=== PATIENT | female | born 1950 | race Caucasian/White ===

== ENCOUNTER → 2021-05-04 11:05 | Outpatient (CLI) | payer MEDICARE, SELFPAY ==
--- NOTE | 2021-05-04 11:06 | DI.RAD.S_ITS ---
PROCEDURE: XR LUMBAR SPINE 2-3V INDICATIONS: Low back pain TECHNIQUE: 3 views of the lumbar spine were acquired. COMPARISON: None. FINDINGS: Bones: Transitional anatomy with 6 lumbar type [id number] vertebral bodies and non-rudimentary S1-S2 disc. For purposes of this dictation the 6 lumbar type [id number]-[id number] vertebral bodies will be designated L1 through S1 with the last non-rudimentary disc designated S1-S2.. There is mild L5-S1 anterolisthesis. There is trace L4-L5 anterolisthesis. No vertebral body compression fractures. No suspicious bony lesions. Mild L2-L3, L3-L4, L4-L5, L5-S1 and S1-S2 degenerative disc changes. Mild L 3-L4, L4-L5, L5-S1 and S1-S2 facet arthropathy. Soft tissues: Overlying bowel gas pattern is normal. No suspicious soft tissue calcifications. IMPRESSION: 1. Transitional anatomy. 2. Multilevel degenerative disc disease. 3. Multilevel facet arthropathy. 4. Grade 1 L5-S1 degenerative spondylolisthesis. 5. No fracture. No acute osseous lesion. If symptoms and/or clinical suspicion for pathology persists, evaluation with MRI should be considered for further assessment. Dictated by: Mariia Sousa MD, PhD on 05/04/2021 at 12:08 Approved by: Mariia Sousa MD, PhD on 05/04/2021 at 12:10
== END ==
PROVIDERS: PCP Student in an Organized Health Care Education/Training Program; Referring Provider Student in an Organized Health Care Education/Training Program; Visit Provider Student in an Organized Health Care Education/Training Program
DX: M54.5 Low back pain (principal); M47.816 Spondylosis without myelopathy or radiculopathy, lumbar region; M47.817 Spondylosis without myelopathy or radiculopathy, lumbosacral region; M51.36 Other intervertebral disc degeneration, lumbar region; M43.17 Spondylolisthesis, lumbosacral region
CPT/HCPCS: 72100

== ENCOUNTER → 2021-05-12 13:58 | Outpatient (CLI) | payer MEDICARE, SELFPAY | PROVIDERS: PCP Student in an Organized Health Care Education/Training Program; Referring Provider Student in an Organized Health Care Education/Training Program; Visit Provider Student in an Organized Health Care Education/Training Program | DX: Z78.0 Asymptomatic menopausal state; Z13.820 Encounter for screening for osteoporosis; R29.890 Loss of height; Z87.891 Personal history of nicotine dependence | CPT/HCPCS: 77080 ==

== ENCOUNTER → 2021-05-26 09:44 | Outpatient (CLI) | payer MEDICARE, SELFPAY ==
[2021-05-26 10:40] LABS: Add Manual Diff / Slide Review NO; Basophils Absolute Auto 0 /uL (0-100); Basophils Percent Auto 0.9 % (0-2); Eosinophils Absolute Auto 200 /uL (0-450); Hematocrit 40.2 % (36-46); Hemoglobin 13.5 g/dL (12.0-16.0); Lymphocytes Absolute Auto 1800 /uL (1100-4500); Lymphocytes Percent Auto 32.6 % (25-40); Mean Corpuscular HGB Conc 33.6 % (30-36); Mean Corpuscular Hemoglobin 31.9 PG (26-34); Mean Corpuscular Volume 94.8 fL (80-100); Monocytes Absolute Auto 400 /uL (0-900); Monocytes Percent Auto 7.9 % (3-14); Neutrophils Absolute Auto 3000 /uL (1500-7000); Neutrophils Percent Auto 54.6 % (50-75); Platelet Count 234 X10^3/uL (150-400); Red Blood Cell Count 4.24 X10^6/uL (4.0-5.2); Red Cell Distribution Width 12.8 % (11.6-14.8); White Blood Cell Count 5.4 X10^3/uL (4.5-11.0)
[2021-05-26 10:53] LABS: Alanine Aminotransferase 69 IU/L (<35); Albumin 4.4 g/dL (3.5-5.0); Albumin Globulin Ratio 1.4 (1.0-2.8); Alkaline Phosphatase 59 U/L (38-126); Aspartate Aminotransferase 47 IU/L (14-36); BUN Creatinine Ratio 24.3 (6-22); Bilirubin Total 0.5 mg/dL (0.2-1.3); Blood Urea Nitrogen 17 mg/dL (7-17); Calcium 9.5 mg/dL (8.4-10.2); Carbon Dioxide 25 mmol/L (22-32); Chloride 107 mmol/L (98-107); Cholesterol 186 mg/dL (140-199); Estimated Glomerular Filt Rate > 60.0 mL/min (>60); Globulin 3.1 g/dL (1.7-4.1); Glucose 93 mg/dL (80-110); HDL Cholesterol 59 mg/dL (40-60); HEMOLYSIS 16 (0-50); LDL Cholesterol Calculated 81 mg/dL (<100); Potassium 4.7 mmol/L (3.4-5.1); Sodium 138 mmol/L (137-145); Total Protein 7.5 g/dL (6.3-8.2); Triglycerides 232 mg/dL (35-150)
== END ==
PROVIDERS: PCP Student in an Organized Health Care Education/Training Program; Referring Provider Student in an Organized Health Care Education/Training Program; Visit Provider Student in an Organized Health Care Education/Training Program
DX: Z13.220 Encounter for screening for lipoid disorders (principal); L71.9 Rosacea, unspecified; Z79.899 Other long term (current) drug therapy; M47.816 Spondylosis without myelopathy or radiculopathy, lumbar region
CPT/HCPCS: 36415; 80053; 80061; 85025

== ENCOUNTER → 2021-06-28 12:33 | Outpatient (CLI) | payer MEDICARE, SELFPAY ==
--- NOTE | 2021-06-28 12:35 | DI.US.S_ITS ---
PROCEDURE: US ABDOMEN LIMITED INDICATIONS: ELEVATED LIVER ENZYMES TECHNIQUE: Real-time focused scanning was performed of the abdomen, with image documentation. COMPARISON: None. FINDINGS: The liver demonstrates normal size. The liver demonstrates generalized moderately increased echogenicity. This decreases ultrasound sensitivity for detection of hepatic masses. No findings of gallstones or sludge are seen. The gallbladder wall is not thickened, measuring 3 mm or less. No specific pericholecystic fluid is seen. The sonographic Sorenson sign is negative. There is no biliary dilatation, the common bile duct measures 6 mm. There is mild prominence of the pancreatic duct, which measures 3.4 mm, with the upper limits of normal being 3 mm. No additional significant pancreatic abnormality is seen on these images. At the inferior pole of the right kidney there is an anechoic cyst that measures 5.1 x 5 x 4 cm. Mild right kidney pelvicaliectasis is seen. IMPRESSION: The liver demonstrates increased echogenicity. This finding is nonspecific, yet it is most commonly attributed to fatty infiltration. Mild prominence of the pancreatic duct. Incidental note is made a simple appearing right renal cyst. Right kidney pelvicaliectasis is also seen. Dictated by: Petey Reyes M.D. on 06/29/2021 at 8:10 Approved by: Petey Reyes M.D. on 06/29/2021 at 8:12
== END ==
PROVIDERS: PCP Student in an Organized Health Care Education/Training Program; Referring Provider Student in an Organized Health Care Education/Training Program; Visit Provider Student in an Organized Health Care Education/Training Program
DX: R74.8 Abnormal levels of other serum enzymes (principal); N28.1 Cyst of kidney, acquired
CPT/HCPCS: 76705

== ENCOUNTER 2021-08-29 12:21 | Inpatient (IN) | payer MEDICARE, SELFPAY ==
[2021-08-29 13:04] VITALS: BP 147/87; PULSE 98; RESP 20; O2SAT 98
[2021-08-29 13:13] LABS: Add Manual Diff / Slide Review NO; Basophils Absolute Auto 0 /uL (0-100); Basophils Percent Auto 0.2 % (0-2); Eosinophils Absolute Auto 100 /uL (0-450); Eosinophils Percent Auto 0.8 % (2-4); Hematocrit 45.1 % (36-46); Hemoglobin 15.5 g/dL (12.0-16.0); Lymphocytes Absolute Auto 1200 /uL (1100-4500); Lymphocytes Percent Auto 12.5 % (25-40); Mean Corpuscular HGB Conc 34.4 % (30-36); Mean Corpuscular Hemoglobin 32.5 PG (26-34); Mean Corpuscular Volume 94.4 fL (80-100); Monocytes Absolute Auto 700 /uL (0-900); Monocytes Percent Auto 6.9 % (3-14); Neutrophils Absolute Auto 7600 /uL (1500-7000); Neutrophils Percent Auto 79.6 % (50-75); Platelet Count 278 X10^3/uL (150-400); Red Blood Cell Count 4.78 X10^6/uL (4.0-5.2); Red Cell Distribution Width 12.5 % (11.6-14.8); White Blood Cell Count 9.5 X10^3/uL (4.5-11.0)
[2021-08-29 13:25] LABS: Alanine Aminotransferase 48 IU/L (<35); Albumin 4.6 g/dL (3.5-5.0); Albumin Globulin Ratio 1.4 (1.0-2.8); Alkaline Phosphatase 66 U/L (38-126); Aspartate Aminotransferase 34 IU/L (14-36); BUN Creatinine Ratio 16.3 (6-22); Blood Urea Nitrogen 15 mg/dL (7-17); Carbon Dioxide 30 mmol/L (22-32); Chloride 98 mmol/L (98-107); Estimated Glomerular Filt Rate > 60.0 mL/min (>60); Globulin 3.3 g/dL (1.7-4.1); Glucose 115 mg/dL (80-110); HEMOLYSIS < 15 (0-50); Lipase 37 U/L (23-300); Potassium 4.4 mmol/L (3.4-5.1); Sodium 137 mmol/L (137-145); Total Protein 7.9 g/dL (6.3-8.2)
--- NOTE | 2021-08-29 13:27 | ED_ITS ---
HPI - General Adult General Chief complaint: Abdominal Pain Stated complaint: INTESTINAL BLOCKAGE Time Seen by Provider: 08/29/21 12:51 Source: patient Mode of arrival: Ambulatory History of Present Illness HPI narrative: Patient is a 71-year-old female. Has had bowel obstructions in the past. She has had a colectomy in the past and does have an ileostomy. She is here with concerns of another bowel blockage. She has had worsening abdominal distention and nausea and pain since Monday of last week. She has minimal with any output from her ostomy. He has had nausea and also vomiting. No fevers. She did take Zofran last evening which improved things somewhat. Related Data Home Medications Medication Instructions Recorded Confirmed diphenhydramine HCl 25 mg tablet 25 mg PO BEDTIME 05/04/21 05/04/21 (Benadryl Allergy) doxycycline hyclate 20 mg tablet 20 mg PO BID 05/04/21 05/04/21 triamcinolone acetonide 0.1 % 1 applic TOPICAL BID 05/04/21 05/04/21 topical cream Previous Rx's Medication Instructions Recorded losartan 50 mg tablet 50 mg PO DAILY #90 tab 07/02/21 gabapentin 600 mg tablet 600 mg PO TID #270 tab 07/30/21 oxycodone-acetaminophen 5 mg-325 1 tab PO 5XD PRN #150 tab 08/25/21 mg tablet (Percocet) Allergies Allergy/AdvReac Type Severity Reaction Status Date / Time cephalexin [From Keflex] Allergy Mild Rash Verified 05/04/21 10:08 Review of Systems Constitutional Constitutional: Denies fever(s) and Denies headache(s) ENT Ears, Nose, Mouth, and Throat: Denies headache(s) Cardiovascular Cardiovascular: Denies chest pain and Denies dyspnea Respiratory Respiratory: Denies dyspnea Gastrointestinal Gastrointestinal: Reports as per HPI and Reports system reviewed and no addit ional complaints, except as documented Genitourinary Genitourinary: Denies dysuria Musculoskeletal Musculoskeletal: Reports system reviewed and no additional complaints, except as documented Integumentary/Breasts Skin/Breast: Reports system reviewed and no additional complaints, except as documented Neurologic Neurologic: Denies headache(s) Hematologic/Lymphatic On Anticoagulants: No Allergic/Immunologic Allergic/Immunologic: Reports system reviewed and no additional complaints, except as documented Patient History Medical History Lynn's esophagus (~2011) Carpal tunnel syndrome (~2002) Chicken pox Colon polyps (~1998) Familial adenomatous polyposis (~1998) Fibroids (~1979) GERD (gastroesophageal reflux disease) (~2011) Measles Mumps Osteoarthritis (~2011) [place] spotted fever (~2019) Rosacea (~2009) Rubella Surgical History (Updated 06/09/21 @ 21:11 by Natasha Merino) Anesthesia History of colectomy (~2015) History of endoscopy (~2017) History of hysterectomy (~1991) Status post small bowel resection (~2019) Family History (Updated 06/09/21 @ 21:20 by Natasha Merino) Father Colon cancer FAP (familial adenomatous polyposis) Mother History of heart disease Mental health problem Brother History of heart disease Grandmother History of heart disease Grandfather Drowned Grandmother Cancer Family/Other FAP (familial adenomatous polyposis) Social History household members: none Smoking Status: Former smoker alcohol intake: current Smoking Status: Former smoker alcohol intake frequency: holidays/special occasions only Substance Use Type: does not use Exam Initial Vital Signs Initial Vital Signs: Vital Signs Pulse Rate 98 H 08/29/21 13:04 Respiratory Rate 20 08/29/21 13:04 Blood Pressure 147/87 H 08/29/21 13:04 Pulse Oximetry 98 08/29/21 13:04 Const General: cooperative, healthy appearing, comfortable and well developed HENMT Head: normal to inspection and normocephalic Resp Effort & Inspection: normal respiratory effort Auscultation: clear to auscultation bilaterally Cardio Rate: regular rate Rhythm: regular rhythm GI Inspection: distended Palpation: soft and tender Other: Ostomy in place right lower quadrant appears well. Skin General: no rashes or lesions noted Neuro General: patient alert, patient awake, patient oriented x3 and moves all extremities Extrem General: capillary refill normal Psych Appearance: grossly normal and well kempt Course Orders Ordered: ED Orders 08/29/21 12:39 EKG-12 Lead Stat 08/29/21 12:45 Complete Blood Count AUTO DIFF Stat Comprehensive Metabolic Panel Stat Lactate (Lactic Acid) Stat Lipase Stat 08/29/21 13:31 CT abdomen pelvis w con Stat 08/29/21 14:51 COVID19 - ADMIT ([employer] DIRECTOR swab/PCR) Stat 08/29/21 15:32 Consult to General Surgery Urgent Sodium Chloride (Normal Saline 0.9%) 1,000 mls @ 150 mls/hr IV CONT BLADE Last Admin: 08/29/21 17:24 Dose: 150 mls/hr Documented by: Infusion: 08/29/21 17:24 Dose: 150 mls/hr Documented by: Admin: 08/29/21 14:00 Dose: 150 mls/hr Documented by: SALUD Morphine Sulfate (Morphine 2 Mg/Ml Inj) 4 mg IV Q4HR PRN PRN Reason: Pain, Mild (1-3) Ondansetron HCl (Ondansetron 4 Mg/2 Ml Inj) 4 mg IV Q4HR PRN PRN Reason: Nausea And Vomiting Discontinued Medications Morphine Sulfate (Morphine 4 Mg/Ml Inj) 4 mg IV NOW ONE Stop: 08/29/21 13:31 Last Admin: 08/29/21 13:59 Dose: 4 mg Documented by: SALUD Ondansetron HCl (Ondansetron 4 Mg/2 Ml Inj) 4 mg IV NOW ONE Stop: 08/29/21 13:31 Last Admin: 08/29/21 13:59 Dose: 4 mg Documented by: SALUD Vital Signs Vital signs: Vital Signs - 8 hr 08/29/21 13:04 Pulse Rate 98 H Respiratory Rate 20 Blood Pressure 147/87 H Pulse Oximetry 98 Medical Decision Making Lab Data Lab results reviewed: Yes I reviewed the patient's lab results. Result diagrams: 08/29/21 12:45 08/29/21 12:45 Labs: Lab Results 08/29/21 08/29/21 08/29/21 Range/Units 12:45 12:45 12:45 WBC 9.5 (4.5-11.0) X10^3/uL RBC 4.78 (4.0-5.2) X10^6/uL Hgb 15.5 (12.0-16.0) g/dL Hct 45.1 (36-46) % MCV 94.4 (80-100) fL MCH 32.5 (26-34) PG MCHC 34.4 (30-36) % RDW 12.5 (11.6-14.8) % Plt Count 278 (150-400) X10^3/uL Neut % (Auto) 79.6 H (50-75) % Lymph % (Auto) 12.5 L (25-40) % [place] % (Auto) 6.9 (3-14) % Eos % (Auto) 0.8 L (2-4) % Baso % (Auto) 0.2 (0-2) % Neut # (Auto) 7600 H (4599-6057) /uL Lymph # (Auto) 1200 (9215-5984) /uL [place] # (Auto) 700 (0-900) /uL Eos # (Auto) 100 (0-450) /uL Baso # (Auto) 0 (0-100) /uL Sodium 137 (137-145) mmol/L Potassium 4.4 (3.4-5.1) mmol/L Chloride 98 (98-107) mmol/L Carbon Dioxide 30 (22-32) mmol/L BUN 15 (7-17) mg/dL Creatinine 0.92 (0.52-1.04) mg/dL Estimated GFR > 60.0 (>60) mL/min BUN/Creatinine Ratio 16.3 (6-22) Glucose 115 H (80-110) mg/dL Lactate 1.0 (0.7-2.1) mmol/L Calcium 10.0 (8.4-10.2) mg/dL Total Bilirubin 1.0 (0.2-1.3) mg/dL AST 34 (14-36) IU/L ALT 48 H (<35) IU/L Alkaline Phosphatase 66 (38-126) U/L Total Protein 7.9 (6.3-8.2) g/dL Albumin 4.6 (3.5-5.0) g/dL Globulin 3.3 (1.7-4.1) g/dL Albumin/Globulin Ratio 1.4 (1.0-2.8) Lipase 37 (23-300) U/L SARS-CoV-2 (PCR) (Negative) 08/29/21 Range/Units 14:51 WBC (4.5-11.0) X10^3/uL RBC (4.0-5.2) X10^6/uL Hgb (12.0-16.0) g/dL Hct (36-46) % MCV (80-100) fL MCH (26-34) PG MCHC (30-36) % RDW (11.6-14.8) % Plt Count (150-400) X10^3/uL Neut % (Auto) (50-75) % Lymph % (Auto) (25-40) % [place] % (Auto) (3-14) % Eos % (Auto) (2-4) % Baso % (Auto) (0-2) % Neut # (Auto) (2865-7149) /uL Lymph # (Auto) (2358-7718) /uL [place] # (Auto) (0-900) /uL Eos # (Auto) (0-450) /uL Baso # (Auto) (0-100) /uL Sodium (137-145) mmol/L Potassium (3.4-5.1) mmol/L Chloride (98-107) mmol/L Carbon Dioxide (22-32) mmol/L BUN (7-17) mg/dL Creatinine (0.52-1.04) mg/dL Estimated GFR (>60) mL/min BUN/Creatinine Ratio (6-22) Glucose (80-110) mg/dL Lactate (0.7-2.1) mmol/L Calcium (8.4-10.2) mg/dL Total Bilirubin (0.2-1.3) mg/dL AST (14-36) IU/L ALT (<35) IU/L Alkaline Phosphatase (38-126) U/L Total Protein (6.3-8.2) g/dL Albumin (3.5-5.0) g/dL Globulin (1.7-4.1) g/dL Albumin/Globulin Ratio (1.0-2.8) Lipase (23-300) U/L SARS-CoV-2 (PCR) Negative (Negative) Imaging Data CT scan - abdomen/pelvis: Radiologist's Impression: [address] [address] [address] Scan Report Signed Patient: Hue Daigle MR#: [id number] : 1950 Acct:[id number] Age/Sex: 71 / F Date of Service: 08/29/21 Loc: ED Accession Number: [id number] ?? Procedure: CT abdomen pelvis w con Ordering Provider: Ruben Boggs D.O. PROCEDURE:? CT ABDOMEN PELVIS W CON ? INDICATIONS:? Abdominal pain, history of obstructions, has ileostomy ? TECHNIQUE:? After the administration of IV contrast, axial sections were acquired from the lung bases to the pubic symphysis.? Coronal and sagittal reformats were performed.? For radiation dose reduction, the following was used:? automated exposure control, adjustment of mA and/or kV according to patient size. ? COMPARISON:? [facility], ABDOMEN LIMITED, 06/28/2021, 12:47. ? FINDINGS:? Image quality:? Excellent.? ? Lung bases:? Unremarkable.? ? Heart:? No significant findings. ? ? ABDOMEN: Liver: Diffuse fatty liver infiltration is noted.? Gallbladder:? Unremarkable.? ? Biliary ducts:? Unremarkable.? ? Pancreas:? Unremarkable.? ? Spleen:? Unremarkable.? ? Adrenal Glands:? Unremarkable.? ? Kidneys and Ureters:? At the inferior pole of the right kidney, there is a simple appearing 5 cm cyst seen.? Kidneys demonstrate normal size enhance symmetrically.? There is no hydronephrosis. ? Stomach and Bowel:? Within the right lower quadrant ileostomy, there is a herniated loop of bowel.? Forming stool can be seen within this herniated loop of bowel.? The more proximal small bowel loops are dilated, measuring up to 3.7 cm. This patient is status post colectomy.? Within the region of the rectal stump, there is a small amount of pelvic fluid seen, as on series 2, image 72. No rim enhancement is seen to suggest abscess formation.? No free air is seen. ? Ventral Wall: ? There is a right lower quadrant ileostomy, with a herniated loop of bowel seen.? There is a dilated of bowel going into the hernia a highly narrowed loop seen at the abdominal wall orifice, as on series 2, image 71. Abdominal Nodes:? No retroperitoneal or mesenteric adenopathy by size criteria.? Vessels:? Aorta and inferior vena cava are normal in size.? ? PELVIS: Pelvic Organs:? Unremarkable.? ? Bladder:? Unremarkable.? ? Pelvic Nodes: No enlarged lymph nodes.? Miscellaneous:? There is a small fat containing right inguinal hernia seen, as on series 2, image 84. ? Bones:? Lower lumbar spine degenerative changes are seen, with milder degenerative changes seen elsewhere. ? ? IMPRESSION:? ? There is a small-bowel obstruction seen, with a site of obstruction at a herniated loop of bowel within the right lower quadrant ileostomy. ? Status post colectomy, with a small amount of fluid seen within the regional rectal stump.? No findings of abscess are seen. ? Incidental note is made of: Fatty liver infiltration 5 cm simple appearing cyst at the inferior pole of the right kidney Small fat containing right inguinal hernia ? Dictated by: Petey Reyes M.D. on 08/29/2021 at 13:03 ? ? Approved by: Petey Reyes M.D. on 08/29/2021 at 13:09?? ECG Data Attestation: I personally reviewed and interpreted this ECG as follows: Prior ECG tracings: not available for review Interpretation: Sinus rhythm Ventricular rate 88 Normal axis Normal QRS Normal QTC No ST T wave changes MDM Narrative Medical decision making narrative: Patient's nausea and pain improved with medications. She has not vomited since being here in the emergency department. CT scan of the abdomen shows what appears to be small bowel obstruction. I did discuss this with her and she expressed understanding. I also discussed the case with Dr. Reyes who is on- call for General surgery who will admit for further evaluation and treatment. Patient understands need for admission to hospital. Discharge Plan Departure Patient Disposition: Admitted As Inpatient Clinical Impression: Small bowel obstruction Admit Date/Time: 08/29/21 16:23 Admit Provider: Jg Reyes
--- NOTE | 2021-08-29 13:31 | DI.CT.S_ITS ---
PROCEDURE: CT ABDOMEN PELVIS W CON INDICATIONS: Abdominal pain, history of obstructions, has ileostomy TECHNIQUE: After the administration of IV contrast, axial sections were acquired from the lung bases to the pubic symphysis. Coronal and sagittal reformats were performed. For radiation dose reduction, the following was used: automated exposure control, adjustment of mA and/or kV according to patient size. COMPARISON: [facility], , US ABDOMEN LIMITED, 06/28/2021, 12:47. FINDINGS: Image quality: Excellent. Lung bases: Unremarkable. Heart: No significant findings. ABDOMEN: Liver: Diffuse fatty liver infiltration is noted. Gallbladder: Unremarkable. Biliary ducts: Unremarkable. Pancreas: Unremarkable. Spleen: Unremarkable. Adrenal Glands: Unremarkable. Kidneys and Ureters: At the inferior pole of the right kidney, there is a simple appearing 5 cm cyst seen. Kidneys demonstrate normal size enhance symmetrically. There is no hydronephrosis. Stomach and Bowel: Within the right lower quadrant ileostomy, there is a herniated loop of bowel. Forming stool can be seen within this herniated loop of bowel. The more proximal small bowel loops are dilated, measuring up to 3.7 cm. This patient is status post colectomy. Within the region of the rectal stump, there is a small amount of pelvic fluid seen, as on series 2, image 72. No rim enhancement is seen to suggest abscess formation. No free air is seen. Ventral Wall: There is a right lower quadrant ileostomy, with a herniated loop of bowel seen. There is a dilated of bowel going into the hernia a highly narrowed loop seen at the abdominal wall orifice, as on series 2, image 71. Abdominal Nodes: No retroperitoneal or mesenteric adenopathy by size criteria. Vessels: Aorta and inferior vena cava are normal in size. PELVIS: Pelvic Organs: Unremarkable. Bladder: Unremarkable. Pelvic Nodes: No enlarged lymph nodes. Miscellaneous: There is a small fat containing right inguinal hernia seen, as on series 2, image 84. Bones: Lower lumbar spine degenerative changes are seen, with milder degenerative changes seen elsewhere. IMPRESSION: There is a small-bowel obstruction seen, with a site of obstruction at a herniated loop of bowel within the right lower quadrant ileostomy. Status post colectomy, with a small amount of fluid seen within the regional rectal stump. No findings of abscess are seen. Incidental note is made of: Fatty liver infiltration 5 cm simple appearing cyst at the inferior pole of the right kidney Small fat containing right inguinal hernia Dictated by: Petey Reyes M.D. on 08/29/2021 at 13:03 Approved by: Petey Reyes M.D. on 08/29/2021 at 13:09
[2021-08-29] MEDS: MORPHINE 4 MG/ML INJ IV (13:59)
[2021-08-29] MEDS: ONDANSETRON 4 MG/2 ML INJ IV ×3 (13:59→22:26)
[2021-08-29] MEDS: SODIUM CHLORIDE 0.9% 1,000 ML 150 ML IV ×2 (14:00→17:24)
[2021-08-29 15:49] LABS: COVID19 - ADMIT (NP swab/PCR) Negative (Negative)
[2021-08-29 16:38] VITALS: BMI 27.9
[2021-08-29 16:55] LABS: Amorphous Sediment Urine 1+; Bacteria Urine Occasional (0-1); Culture Indicated Urine Specimen Cultured; RBC Urine None Seen (0-5/HPF); Squamous Epithelial Cell Urine 0-1 /HPF (0-5/HPF); WBC Urine 10-30/HPF (0-5/HPF)
[2021-08-29 17:09] VITALS: BP 153/79; PULSE 84; RESP 16; TEMP 36.7; O2SAT 97
[2021-08-29] MEDS: MORPHINE 2 MG/ML INJ 4 MG IV ×2 (18:08→22:21)
[2021-08-29 20:05] VITALS: BP 117/66; PULSE 72; RESP 16; TEMP 37.7; O2SAT 95
--- NOTE | 2021-08-30 | DI.RAD.S_ITS ---
PROCEDURE: XR GASTROGRAFIN CHALLENGE COMPARISON: [facility], CR, XR CHEST 1V, 08/30/2021, 16:39. [facility], CT, CT ABDOMEN PELVIS W CON, 08/29/2021, 13:46. INDICATIONS: Small bowel obstruction FINDINGS: Catheter or overlying the right lower abdomen. Enteric tube projecting over the stomach. Dilated loops of small bowel. No acute osseous abnormality. IMPRESSION: Catheters project in the expected locations. Dilated loops of small bowel. Suspect persistent small bowel obstruction. Dictated by: Valentin Lindsey M.D. on 08/30/2021 at 22:20 Approved by: Valentin Lindsey M.D. on 08/30/2021 at 22:23
[2021-08-30] MEDS: SODIUM CHLORIDE 0.9% 1,000 ML 150 ML IV ×3 (00:14→13:27)
[2021-08-30] MEDS: MORPHINE 2 MG/ML INJ 4 MG IV ×4 (02:24→16:14)
[2021-08-30] MEDS: ONDANSETRON 4 MG/2 ML INJ IV ×5 (02:24→21:48)
[2021-08-30 04:36] VITALS: BP 118/80; PULSE 92; RESP 16; TEMP 37.3; O2SAT 98
[2021-08-30 08:30] VITALS: BP 114/63; PULSE 75; RESP 14; TEMP 36.4; O2SAT 93
[2021-08-30] MEDS: SODIUM CHLORIDE 0.9% FLUSH 10 ML IV (12:31)
[2021-08-30 12:39] VITALS: BP 131/68; PULSE 79; RESP 16; TEMP 37.4; O2SAT 93
--- NOTE | 2021-08-30 15:42 | PC.NURSE ---
Addendum entered by Baltazar Loja R.N. 08/30/21 19:47: 14F NG tube was placed to left nare at 55cm. Gastrograffin was administered by FROYLAN ricketts. Later patient c/o of increased severe abdominal pain, sitting at bedside moaning in pain. Dr. Reyes notified and ordered NG to be placed to intermittent suction (done) and prn IV dilaudid for pain. Patient resting at this time with call light within reach. Original Note: DI came up to administer gastrograffin as ordered for test. Patient states she was really trying to avoid having an NG tube and would like to attempt to take contrast orally. DI tech states for test itself it does not matter. Dr. Reyes notified and gives ok for patient to attempt orally. Patient quickly became nauseous with abdominal pain, and agreed to NG tube at this time.
[2021-08-30 16:00] VITALS: BP 144/73; PULSE 91; RESP 14; TEMP 36.6; O2SAT 94
--- NOTE | 2021-08-30 16:31 | P.HP_ITS ---
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 She reports she did have a peristomal hernia repair for an emergent bowel obstruction in 2019 in [place]. She now presents with 3 days of nausea, vomiting, abdominal pain and decreased ileostomy output which she states feels like her prior obstruction. The CT shows a likely obstruction at the level of the ileostomy. Although the radiology report implies that a loop of bowel is herniated alongside the ileostomy, it may in fact be a redundancy in the ileum coming through the fascia and causing compression of the ileum at the level of the fascia. Patient History Medical History Lynn's esophagus (~2011) Carpal tunnel syndrome (~2002) Chicken pox Colon polyps (~1998) Familial adenomatous polyposis (~1998) Fibroids (~1979) GERD (gastroesophageal reflux disease) (~2011) Measles Mumps Osteoarthritis (~2011) [place] spotted fever (~2019) Rosacea (~2009) Rubella Surgical History (Updated 06/09/21 @ 21:11 by Natasha Merino) Anesthesia History of colectomy (~2015) History of endoscopy (~2017) History of hysterectomy (~1991) Status post small bowel resection (~2019) Family & Social History Family History (Updated 06/09/21 @ 21:20 by Natasha Merino) Father Colon cancer FAP (familial adenomatous polyposis) Mother History of heart disease Mental health problem Brother History of heart disease Grandmother History of heart disease Grandfather Drowned Grandmother Cancer Family/Other FAP (familial adenomatous polyposis) Social History: household members none Prior Living Arrangements House Safety & Behavioral: Feels Safe in Current Yes Environment Been Physically Hurt or No Threatened By a Person Suicidal Ideation Description None Suicide Plan Description No Plan Tobacco & Substance use: Smoking Status Former smoker alcohol intake current alcohol intake frequency holiday/special occasion Substance Use Type does not use Meds Home Medications and Allergies Home Medications Medication Instructions Recorded Confirmed Type diphenhydramine HCl 25 mg tablet 25 mg PO BEDTIME 05/04/21 08/29/21 History (Benadryl Allergy) losartan 50 mg tablet 50 mg PO DAILY #90 tab 07/02/21 08/29/21 Rx gabapentin 600 mg tablet 600 mg PO TID #270 tab 07/30/21 08/29/21 Rx oxycodone-acetaminophen 5 mg-325 1 tab PO 5XD PRN #150 tab 08/25/21 08/29/21 Rx mg tablet (Percocet) Allergies Allergy/AdvReac Type Severity Reaction Status Date / Time cephalexin [From Keflex] Allergy Mild Rash Verified 05/04/21 10:08 Exam Vital Signs (past 8 hours): - 08/30/21 12:39 Temperature 99.3 F Pulse Rate 79 Respiratory Rate 16 Blood Pressure 131/68 Pulse Oximetry 93 Oxygen Delivery Method Room Air Oxygen Flow Rate 0 Narrative Exam Narrative: Nontoxic Abdomen is soft, distended There is a laparotomy scar from just above the umbilicus to the pubis. There is a right lower quadrant ileostomy the mucosa of which is red and well perfused. There is scant fluid in the ileostomy bag. Objective Labs Result Diagrams: 08/29/21 12:45 08/29/21 12:45 Labs: Laboratory Results - last 24 hr 08/29/21 16:45 Urine RBC None seen Urine WBC 10-30/hpf H Ur Squamous Epith Cells 0-1 /hpf Amorphous Sediment 1+ Urine Bacteria Occasional (0-1) Ur Culture Indicated? Specimen cultured Assessment & Plan Assessment and plan (1) Small bowel obstruction: Status: Acute Plan I did attempt to digitalize the ileostomy be on the fascia and I inserted a red rubber catheter. Despite this maneuver there is minimal output. I will initiate a Gastrografin challenge. If she does not start putting out significant stool through the ileostomy by morning we will schedule her for an exploration of the ileostomy. Hopefully, the ileostomy could be revised at the level of the fascia without entering the abdominal cavity. Time Spent With Patient Critical Care time: I spent a total of [] minutes of critical care time on this patient's care today; this time is exclusive of procedural time. Quality VTE Deep Vein Thrombosis/Pulmonary Embolism Present on Admission: No
--- NOTE | 2021-08-30 16:38 | DI.RAD.S_ITS ---
PROCEDURE: XR CHEST 1V INDICATIONS: NG tube placement TECHNIQUE: One view of the chest was acquired. COMPARISON: None. FINDINGS: Surgical changes and devices: Enteric tube with the tip in the stomach. Lungs and pleura: Bibasilar streaky opacity consistent with atelectasis. No pleural effusions or pneumothorax. Mediastinum: Mediastinal contours appear normal. Heart size is normal. Bones and chest wall: No suspicious bony lesions. Prominent loops of small bowel. IMPRESSION: Enteric tube coursing into the stomach. Dilated loops of small bowel. Dictated by: Valentin Lindsey M.D. on 08/30/2021 at 16:50 Approved by: Valentin Lindsey M.D. on 08/30/2021 at 16:52
[2021-08-30] MEDS: HYDROMORPHONE 0.5 MG INJ IV ×2 (18:58→22:05)
[2021-08-30 19:57] VITALS: BP 150/64; PULSE 89; RESP 16; TEMP 37.2; O2SAT 94
[2021-08-31] VITALS (20 sets, daily range): BP systolic 122–168; BP diastolic 53–79; PULSE 88–149; RESP 12–102; TEMP 36.1–37.7; O2SAT 91–100; BMI 27.9
[2021-08-31] MEDS: HYDROMORPHONE 0.5 MG INJ IV ×5 (00:40→08:40)
[2021-08-31] MEDS: ONDANSETRON 4 MG/2 ML INJ IV ×3 (01:18→08:40)
--- NOTE | 2021-08-31 06:53 | P.PN_ITS ---
Subjective Subjective Date Patient Seen: 08/31/21 Time Patient Seen: 06:54 Interval history: Hue had significant abdominal pain after the gastrograffin challenge last night. Once she was connected to suction she improved but she is still uncomfortable. Nothing significant out from the ileostomy. Exam Vital Signs (past 8 hours): - 08/31/21 06:01 Temperature 99.2 F Pulse Rate 93 H Respiratory Rate 16 Blood Pressure 148/64 H Pulse Oximetry 93 Oxygen Delivery Method Room Air Oxygen Flow Rate 0 Narrative Exam Narrative: Tender to palpation diffusely across abdomen Objective Labs Result Diagrams: 08/29/21 12:45 08/29/21 12:45 [facility] Medical History Lynn's esophagus (~2011) Carpal tunnel syndrome (~2002) Chicken pox Colon polyps (~1998) Familial adenomatous polyposis (~1998) Fibroids (~1979) GERD (gastroesophageal reflux disease) (~2011) Measles Mumps Osteoarthritis (~2011) [place] spotted fever (~2019) Rosacea (~2009) Rubella Surgical History (Updated 06/09/21 @ 21:11 by Natasha Merino) Anesthesia History of colectomy (~2015) History of endoscopy (~2017) History of hysterectomy (~1991) Status post small bowel resection (~2019) Family History (Updated 06/09/21 @ 21:20 by Natasha Merino) Father Colon cancer FAP (familial adenomatous polyposis) Mother History of heart disease Mental health problem Brother History of heart disease Grandmother History of heart disease Grandfather Drowned Grandmother Cancer Family/Other FAP (familial adenomatous polyposis) Social History household members: none Smoking Status: Former smoker alcohol intake: current Assessment & Plan Assessment and plan (1) Small bowel obstruction: Status: Acute Plan Since no progression will proceed with ileostomy revision, possible exploratory laparotomy today. Time Spent With Patient Critical Care time: I spent a total of [] minutes of critical care time on this patient's care today; this time is exclusive of procedural time. Quality VTE Deep Vein Thrombosis/Pulmonary Embolism Present on Admission: No
--- NOTE | 2021-08-31 09:32 | PC.NURSE ---
Patient picked up for surgery. Her earrings were placed in her black bag per her request and left in room.
[2021-08-31] MEDS: LACTATED RINGERS 1,000 ML 42 ML IV ×2 (10:09→12:35)
--- NOTE | 2021-08-31 10:54 | SUR.OPER ---
Supine on padded OR bed, head on pillow, arms secured on padded arm boards at <90 degrees abduction, legs uncrossed, safety belt at thigh, tape over blanket over lower legs.
[2021-08-31] MEDS: HYDROMORPHONE 2 MG INJ 0.5 MG IV (11:26)
--- NOTE | 2021-08-31 11:52 | SUR.HOLD ---
Late entry: Pt brought to OPD, NGT connected to LIS, light brown liquid out. IV to R forearm started. Pt c/o pain, verified with Dr. Bernardo carcamo to give. Pt medicated, spoke with Dr. Chang then pt transported to OR in stable condition
[2021-08-31] MEDS: PIPERACILLIN/TAZO 3.375 GM in SODIUM CHLORIDE 0.9% 100 ML 25 ML IV (12:03)
[2021-08-31] MEDS: LIDOCAINE 1% W/EPI 20 ML INJ (12:15)
--- NOTE | 2021-08-31 14:54 | PM.OP.1 ---
Operative Date/Time/Diagnoses Date of procedure: 08/31/21 Time of procedure: 14:54 Pre-op diagnosis: Small-bowel obstruction Post-op diagnosis: same Procedure & Clinicians Procedure: Revision of end ileostomy Same procedure as scheduled: Yes Indications: Small-bowel obstruction at the ileostomy Surgeon: Jg Reyes Click Yes if Unassisted: Yes Anesthesia Type: General Operative Notes Estimated Blood Loss (mL): 20 Procedure in detail: The patient received Zosyn. The patient was brought to the operating room, was placed on the table in the supine position and general endotracheal anesthesia was induced. A single 2-0 silk suture was used to close the ileostomy. The abdomen was prepped with Betadine. The field was draped in the normal fashion. A time-out was performed. We took down the mucocutaneous junction with cautery and dissected along the plane between the serosa and the subcutaneous adipose tissue. There was a tangled mass of bowel in the subcutaneous space. As we dissected along the medial side of the mass of bowel at one point we thought we had entered into the bowel but in fact we were looking into the peritoneal cavity. There were actually no adhesions visible in the peritoneal cavity. There was a thick peritoneal sac going through the fascial defect that we took down with LigaSure. Because there was some leakage of succus we stapled off the distal end of the small bowel with the linear DALILA cutting stapler. Once terminal ileum was well mobilized and straightened we amputated the distal 5 cm of bowel using cautery. The bowel wall here was rather thickened and edematous but very much viable. We then matured the new ileostomy in a Ciara fashion. A new appliance was placed and the patient was awakened and brought to recovery room. Post-operative Condition: stable Disposition: PACU
[2021-08-31] MEDS: HYDROMORPHONE 2 MG INJ IV ×4 (15:21→15:41)
--- NOTE | 2021-08-31 16:48 | PC.NURSE ---
Addendum entered by Baltazar Loja R.N. 08/31/21 17:13: Dr Reyes up to see patient and discuss surgery, at bedside at this time, states he will clarify orders. Original Note: Patient received back from PACU, settled in room, NG remains intact in left nare and connected to low intermittent wall suction. Patient denies pain and nausea. PACU orders are active, no new transfer orders noted, per [employer]IST no transfer orders were entered. Patient resting in bed with call light within reach.
[2021-08-31] MEDS: LACTATED RINGERS 1,000 ML 75 ML IV (18:50)
[2021-08-31] MEDS: HYDROMORPHONE 1 MG INJ 0.5 MG IV (20:27)
--- NOTE | 2021-09-01 00:18 | PC.ADMIT ---
[email or web address] [facility] Admission Note: The patient,Hue Daigle,71 y/o, was given written information regarding hospital policies, unit procedures and contact persons. Patient's smoking status: Former smoker. Vital Signs - 8 hr 08/31/21 16:20 08/31/21 16:50 08/31/21 17:20 Temperature 98.4 F 97.9 F 97.9 F Pulse Rate 93 H 88 101 H Respiratory Rate 16 16 16 Blood Pressure 122/62 137/59 L 142/67 H Pulse Oximetry 93 94 94 08/31/21 19:56 Temperature 97.7 F Pulse Rate 89 Respiratory Rate 16 Blood Pressure 133/56 L Pulse Oximetry 92 [id number]
[2021-09-01] MEDS: HYDROMORPHONE 0.5 MG INJ IV ×11 (00:19→22:18)
[2021-09-01 04:00] VITALS: BP 152/64; PULSE 101; RESP 18; TEMP 36.3; O2SAT 92
--- NOTE | 2021-09-01 04:10 | DI.CT.S_ITS ---
PROCEDURE: CT ABDOMEN PELVIS W CON INDICATIONS: abdominal pain TECHNIQUE: After the administration of oral and intravenous contrast, axial sections were acquired from the lung bases to the pubic symphysis. Coronal and sagittal reformats were performed. For radiation dose reduction, the following was used: automated exposure control, adjustment of mA and/or kV according to patient size. COMPARISON:[facility], CT, CT ABDOMEN PELVIS W CON, 08/29/2021, 13:46. FINDINGS: ABDOMEN: Lung bases: Small right greater than left pleural effusion with adjacent atelectasis. There is also bibasilar consolidation. Heart: No pericardial effusion. Normal in size. Liver: Hepatic steatosis. Gallbladder: Mild vicarious secretion of contrast. Otherwise unremarkable Bile ducts: Normal. Pancreas: Normal. Spleen: Normal. Adrenals: Normal. Kidneys and Ureters: Rotated appearance of the right kidney incidentally noted. Simple appearing right renal cyst measuring 7 cm. No hydronephrosis. Ureters appear decompressed. Stomach and duodenum: Enteric tube is present with the tip in the stomach. Fluid-filled duodenum. Bowel: Numerous dilated small bowel loops with scattered air-fluid levels. Status post colectomy. Right-sided ostomy is noted with oral contrast material seen in the exiting bowel loops and ostomy bag. There is narrowed appearance at the ostomy on image 80/2. Other: No free fluid or air. Abdominal nodes: Normal. Aorta and IVC: Normal in size. Ventral wall: There is redemonstrated lincoln-ostomy hernia containing bowel loops, grossly unchanged since 08/29/21 PELVIS: Bladder and reproductive: Decompressed and a Melara catheter is present. Inguinal region: Small right fat containing inguinal hernia. Pelvic nodes: Normal. Bones: No suspicious bony lesions. No vertebral body compression fractures. Diffuse spondylytic changes and facet disease. IMPRESSION: Numerous dilated small bowel loops, with redemonstrated periosteal hernia containing bowel loops. There is narrowed appearance at the ostomy site raising possibility of transition point, however there is oral contrast material seen within the exiting bowel loops and ostomy bag so this could represent adynamic ileus. Recommend clinical correlation. Small bilateral pleural effusions with bibasilar consolidation. Additional chronic and incidental findings as above. Findings concordant with the preliminary study interpretation provided at the time of the exam. Dictated by: Grey Julien M.D. on 09/01/2021 at 8:32 Approved by: Grey Julien M.D. on 09/01/2021 at 8:39
[2021-09-01] MEDS: HYDROMORPHONE 1 MG INJ IV (04:31)
--- NOTE | 2021-09-01 07:22 | PM.PN.1 ---
Subjective Subjective Date Patient Seen: 09/01/21 Time Patient Seen: 07:23 Interval history: She is frustrated that she is not feeling better yet. She did experience increased abdominal pain overnight. Initially there was not much ileostomy output. A CT was repeated early this morning which shows there is still some redundancy in the ileostomy between the fascia and the skin but there does appear to be Gastrografin progressing through to the ileostomy. She reports that she has had some more ileostomy output since the CT scan. Additionally, a Melara catheter was placed last night for urinary retention. She reports that she has had problems with urinary retention in the past whenever she has had surgery. She reports that she has frequently had to go home with a leg bag for this reason. Exam Vital Signs (past 8 hours): - 09/01/21 04:00 Temperature 97.4 F L Pulse Rate 101 H Respiratory Rate 18 Blood Pressure 152/64 H Pulse Oximetry 92 Oxygen Delivery Method Nasal Cannula Oxygen Flow Rate 2 Narrative Exam Narrative: She is uncomfortable Ileostomy is slightly dusky. Otherwise no change in abdominal exam Objective Labs Result Diagrams: 08/29/21 12:45 08/29/21 12:45 [facility] Medical History Lynn's esophagus (~2011) Carpal tunnel syndrome (~2002) Chicken pox Colon polyps (~1998) Familial adenomatous polyposis (~1998) Fibroids (~1979) GERD (gastroesophageal reflux disease) (~2011) Measles Mumps Osteoarthritis (~2011) [place] spotted fever (~2019) Rosacea (~2009) Rubella Surgical History (Updated 06/09/21 @ 21:11 by Natasha Merino) Anesthesia History of colectomy (~2015) History of endoscopy (~2017) History of hysterectomy (~1991) Status post small bowel resection (~2019) Family History (Updated 06/09/21 @ 21:20 by Natasha Merino) Father Colon cancer FAP (familial adenomatous polyposis) Mother History of heart disease Mental health problem Brother History of heart disease Grandmother History of heart disease Grandfather Drowned Grandmother Cancer Family/Other FAP (familial adenomatous polyposis) Social History household members: none Smoking Status: Former smoker alcohol intake: current Assessment & Plan Assessment and plan (1) Postoperative examination: Status: Acute Plan I suspect her increased pain level is due to peristalsis. Although there is some bowel contents coming through is possible the edema of the bowel wall is still causing a partial obstruction at the stoma. I trimmed a 10 cm segment of a 20 [place] red rubber catheter and inserted it through the ileostomy with good return of bowel contents. Her dilaudid frequency was increased to every 30 minutes as needed. Continue Melara catheter since she have history of urinary retention after surgery. Dr. Sofia will be covering for the next several days. Time Spent With Patient Critical Care time: I spent a total of [] minutes of critical care time on this patient's care today; this time is exclusive of procedural time. Quality VTE Deep Vein Thrombosis/Pulmonary Embolism Present on Admission: No
[2021-09-01 07:25] LABS: Add Manual Diff / Slide Review NO; Basophils Absolute Auto 0 /uL (0-100); Basophils Percent Auto 0.2 % (0-2); Eosinophils Absolute Auto 0 /uL (0-450); Hematocrit 33.9 % (36-46); Hemoglobin 11.5 g/dL (12.0-16.0); Lymphocytes Absolute Auto 700 /uL (1100-4500); Lymphocytes Percent Auto 10.9 % (25-40); Mean Corpuscular HGB Conc 33.8 % (30-36); Mean Corpuscular Hemoglobin 32.5 PG (26-34); Monocytes Absolute Auto 700 /uL (0-900); Monocytes Percent Auto 10.5 % (3-14); Neutrophils Absolute Auto 5300 /uL (1500-7000); Neutrophils Percent Auto 78.4 % (50-75); Platelet Count 198 X10^3/uL (150-400); Red Blood Cell Count 3.54 X10^6/uL (4.0-5.2); White Blood Cell Count 6.8 X10^3/uL (4.5-11.0)
[2021-09-01 07:46] LABS: BUN Creatinine Ratio 22.8 (6-22); Blood Urea Nitrogen 18 mg/dL (7-17); Calcium 8.5 mg/dL (8.4-10.2); Carbon Dioxide 29 mmol/L (22-32); Chloride 105 mmol/L (98-107); Estimated Glomerular Filt Rate > 60.0 mL/min (>60); Glucose 129 mg/dL (80-110); HEMOLYSIS < 15 (0-50); Potassium 3.4 mmol/L (3.4-5.1); Sodium 140 mmol/L (137-145)
[2021-09-01 08:08] LABS: Magnesium 2.3 mg/dL (1.6-2.3)
[2021-09-01] MEDS: DEXTROSE 5%-0.45NS W/KCL 20MEQ 1,000 ML 100 MEQ IV ×2 (08:44→19:58)
[2021-09-01 10:38] VITALS: BP 135/62; PULSE 85; RESP 18; TEMP 36.6; O2SAT 96
--- NOTE | 2021-09-01 11:27 | CM.DPC ---
DCP Cont: Per Surgeon, pt tolerated surgical intervention well and has continued to have some abdominal pain but has started to have some illeostomy output but not much yet. Pt still has NG tube in place and NPO at this time. 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 Pt has at least 4 local very supportive friends and if needed then she can stay with friends at d/c prior to return to her RV. Pt states that she has had her illeostomy for 6 years and feels very comfortable and knowledgeable regarding her ostomy care and denies the need for HH RN at d/c. Pt states her one concern is her ongoing hernia and she plans to talk to the surgeon regarding recommendations to reduce risk of hernia again. Plan: SW to follow closely for further output for illeostomy and eventual advancing of her diet towards plan of d/c back to RV vs staying with local friends at d/c and any further identified needs. JERRY Maldonado
[2021-09-01 16:20] VITALS: BP 131/67; PULSE 82; RESP 16; TEMP 37.6; O2SAT 96
[2021-09-01 20:05] VITALS: BP 130/55; PULSE 81; RESP 18; TEMP 36.5; O2SAT 94
[2021-09-02] MEDS: HYDROMORPHONE 0.5 MG INJ IV ×9 (00:14→11:54)
[2021-09-02] MEDS: SODIUM CHLORIDE 0.9% FLUSH 10 ML IV ×3 (02:52→04:32)
[2021-09-02 04:57] VITALS: BP 126/61; PULSE 87; RESP 18; TEMP 37.6; O2SAT 90
[2021-09-02] MEDS: DEXTROSE 5%-0.45NS W/KCL 20MEQ 1,000 ML 100 MEQ IV (06:18)
[2021-09-02 06:35] LABS: Add Manual Diff / Slide Review NO; Basophils Absolute Auto 0 /uL (0-100); Basophils Percent Auto 0.3 % (0-2); Eosinophils Absolute Auto 100 /uL (0-450); Eosinophils Percent Auto 1.3 % (2-4); Hematocrit 30.5 % (36-46); Hemoglobin 10.4 g/dL (12.0-16.0); Lymphocytes Absolute Auto 1000 /uL (1100-4500); Lymphocytes Percent Auto 15.1 % (25-40); Mean Corpuscular HGB Conc 34.2 % (30-36); Mean Corpuscular Hemoglobin 32.6 PG (26-34); Mean Corpuscular Volume 95.4 fL (80-100); Monocytes Absolute Auto 500 /uL (0-900); Neutrophils Absolute Auto 5000 /uL (1500-7000); Neutrophils Percent Auto 76.3 % (50-75); Platelet Count 156 X10^3/uL (150-400); Red Blood Cell Count 3.19 X10^6/uL (4.0-5.2); Red Cell Distribution Width 12.8 % (11.6-14.8); White Blood Cell Count 6.5 X10^3/uL (4.5-11.0)
[2021-09-02 06:42] LABS: Blood Urea Nitrogen 12 mg/dL (7-17); Calcium 7.8 mg/dL (8.4-10.2); Carbon Dioxide 31 mmol/L (22-32); Chloride 102 mmol/L (98-107); Estimated Glomerular Filt Rate > 60.0 mL/min (>60); Glucose 130 mg/dL (80-110); HEMOLYSIS < 15 (0-50); Magnesium 2.2 mg/dL (1.6-2.3); Potassium 3.5 mmol/L (3.4-5.1); Sodium 136 mmol/L (137-145)
[2021-09-02] MEDS: LORazepam 2 MG/ML INJ 1 MG IV (06:44)
[2021-09-02 11:43] VITALS: BP 146/63; PULSE 90; RESP 17; TEMP 37.5; O2SAT 93
--- NOTE | 2021-09-02 12:04 | PM.PNPO.1 ---
Subjective Subjective Interval history: Having a lot of muscle spasms in her abdomen. Ativan seems to be helping which was ordered through the night. She continues to have ostomy output. She feels hungry. Exam Vital Signs (past 8 hours): - 09/02/21 04:57 09/02/21 11:43 Temperature 99.6 F 99.5 F Pulse Rate 87 90 Respiratory Rate 18 17 Blood Pressure 126/61 146/63 H Pulse Oximetry 90 L 93 Oxygen Delivery Method Nasal Cannula Oxygen Flow Rate 0 Narrative Exam Narrative: Refuses to let me even see her abdomen much less examine it with palpation. Lungs are clear to auscultation. Effort could be a little better. Heart regular rate and rhythm without murmur gallop. Objective Labs Result Diagrams: 09/02/21 05:53 09/02/21 05:53 Labs: Laboratory Results - last 24 hr 09/02/21 09/02/21 05:53 05:53 WBC 6.5 RBC 3.19 L Hgb 10.4 L Hct 30.5 L MCV 95.4 MCH 32.6 MCHC 34.2 RDW 12.8 Plt Count 156 Neut % (Auto) 76.3 H Lymph % (Auto) 15.1 L [place] % (Auto) 7.0 Eos % (Auto) 1.3 L Baso % (Auto) 0.3 Neut # (Auto) 5000 Lymph # (Auto) 1000 L [place] # (Auto) 500 Eos # (Auto) 100 Baso # (Auto) 0 Sodium 136 L Potassium 3.5 Chloride 102 Carbon Dioxide 31 BUN 12 Creatinine 0.63 Estimated GFR > 60.0 BUN/Creatinine Ratio 19.0 Glucose 130 H Calcium 7.8 L Magnesium 2.2 [facility] Medical History Lynn's esophagus (~2011) Carpal tunnel syndrome (~2002) Chicken pox Colon polyps (~1998) Familial adenomatous polyposis (~1998) Fibroids (~1979) GERD (gastroesophageal reflux disease) (~2011) Measles Mumps Osteoarthritis (~2011) [place] spotted fever (~2019) Rosacea (~2009) Rubella Surgical History (Updated 06/09/21 @ 21:11 by Natasha Merino) Anesthesia History of colectomy (~2015) History of endoscopy (~2017) History of hysterectomy (~1991) Status post small bowel resection (~2019) Family History (Updated 06/09/21 @ 21:20 by Natasha Merino) Father Colon cancer FAP (familial adenomatous polyposis) Mother History of heart disease Mental health problem Brother History of heart disease Grandmother History of heart disease Grandfather Drowned Grandmother Cancer Family/Other FAP (familial adenomatous polyposis) Social History household members: none Smoking Status: Former smoker alcohol intake: current Assessment & Plan Post-op Postoperative Procedures: Procedures Operation Date: 08/31/21 09:45 Actual Procedure Side Surgeon p REVISION OF ILEOSTOMY Right Jg Reyes MD Postoperative status narrative: Seems to be doing well. Has had both gas and large amount of stool through her ostomy. White blood cell count is acceptable with a not unexpected differential. Postoperative plan narrative: Reduce IV fluids and start p.o.. Changed p.o. meds including pain medicine. Quality VTE Deep Vein Thrombosis/Pulmonary Embolism Present on Admission: No
[2021-09-02] MEDS: DEXTROSE 5%-0.45NS W/KCL 20MEQ 1,000 ML 42 MEQ IV (15:39)
[2021-09-02] MEDS: diazePAM 5 MG TABLET PO ×2 (15:40→23:18)
[2021-09-02] MEDS: OXYCODONE IR 10 MG TABLET PO ×2 (16:08→19:54)
[2021-09-02] MEDS: KETOROLAC 30 MG/ML VIAL 15 MG IV ×2 (16:09→23:52)
[2021-09-02 17:28] VITALS: BP 129/68; PULSE 90; RESP 16; TEMP 37.1; O2SAT 99
--- NOTE | 2021-09-02 18:04 | PC.NURSE ---
Day shift note: Alert, oreinted and cooperative. Tolerated Full liquid diet, no N/V. Ileostomy to RLQ in place, 450ml output. Medication changes made by Dr. Sofia, patients pain controlled with adequate with additional changes. IVF rate decreased as ordered. Patient up OOB, dangled at bedside. High fall risk precautions maintained, calls appropriately for staff assist.
[2021-09-02 19:53] VITALS: BP 126/65; PULSE 94; RESP 18; TEMP 36.6; O2SAT 93
[2021-09-02 23:30] VITALS: BP 159/67; PULSE 95; RESP 18; TEMP 38.1; O2SAT 93
[2021-09-02 23:52] VITALS: TEMP 39.1
[2021-09-03] VITALS (10 sets, daily range): BP systolic 118–158; BP diastolic 58–77; PULSE 74–81; RESP 12–18; TEMP 36.7–38.7; O2SAT 93–94
[2021-09-03] MEDS: OXYCODONE IR 10 MG TABLET PO ×5 (00:40→22:32)
[2021-09-03 01:48] LABS: Appearance Urine UA SL CLOUDY; Color Urine UA Orange; pH Urine UA 6.5 (4.5-8.0)
[2021-09-03 01:54] LABS: Bacteria Urine Few (2-10); RBC Urine 30-100/HPF (0-5/HPF); WBC Urine 0-1/HPF (0-5/HPF)
[2021-09-03 01:55] LABS: Mucus Urine 2+ (Negative)
[2021-09-03] MEDS: ACETAMINOPHEN 325 MG TABLET 650 MG PO ×2 (01:55→08:23)
[2021-09-03] MEDS: PIPERACILLIN/TAZO 4.5 GM in SODIUM CHLORIDE 0.9% 100 ML 200 ML IV (01:55)
[2021-09-03 01:56] LABS: Culture Indicated Urine Specimen Cultured; Squamous Epithelial Cell Urine 1-5 /HPF (0-5/HPF)
--- NOTE | 2021-09-03 07:48 | PC.NURSE ---
Pt w/ elevated temperature through night. Tmax 102.3 oral. Cooling measures (ice, minimal covers, increase oral intake) taken and IV toradol given, temperature only reduced to 101.9. Contacted provider, rec'd orders for IV abx, UA w/ culture, & tylenol. Temperature slowly lowered through night, reaching 98.5 at approx 0430.
[2021-09-03] MEDS: PIPERACILLIN/TAZO 3.375 GM in SODIUM CHLORIDE 0.9% 100 ML 25 ML IV ×2 (09:04→17:53)
--- NOTE | 2021-09-03 12:20 | PM.PNPO.1 ---
Subjective Subjective Interval history: The patient complains of left upper abdominal pain. Exam Vital Signs (past 8 hours): - 09/03/21 04:29 09/03/21 08:23 09/03/21 09:33 Temperature 98.5 F 99.7 F H 99.3 F Pulse Rate 74 81 Respiratory Rate 12 14 Blood Pressure 118/58 L 158/77 H Pulse Oximetry 94 94 Oxygen Delivery Method Nasal Cannula Oxygen Flow Rate 0 Narrative Exam Narrative: The patient had a temperature to 102 last night. She still has a temperature over 99. Urine was cultured and looks dirty. Her lungs decreased breath sounds in the bases. Heart regular rate and rhythm without murmur gallop. Abdomen is soft. She has cellulitis medial and lateral to her new ostomy. The ostomy is sucked in a little bit but still adherent. It is viable and producing stool colored liquid. The bag is leaking slightly inferiorly. Objective Labs Result Diagrams: 09/02/21 05:53 09/02/21 05:53 Labs: Laboratory Results - last 24 hr 09/03/21 01:05 Urine Color [place] Urine Appearance Sl cloudy Urine pH 6.5 Ur Specific [place] 1.020 Urine Protein TNP Urine Glucose (UA) TNP Urine Ketones TNP Urine Occult Blood TNP Urine Nitrate TNP Urine Bilirubin TNP Urine Urobilinogen TNP Ur Leukocyte Esterase TNP Urine RBC 30-100/hpf H Urine WBC 0-1/hpf Ur Squamous Epith Cells 1-5 /hpf Urine Bacteria Few (2-10) H Urine Mucus 2+ H Ur Culture Indicated? Specimen cultured [facility] Medical History Lynn's esophagus (~2011) Carpal tunnel syndrome (~2002) Chicken pox Colon polyps (~1998) Familial adenomatous polyposis (~1998) Fibroids (~1979) GERD (gastroesophageal reflux disease) (~2011) Measles Mumps Osteoarthritis (~2011) [place] spotted fever (~2019) Rosacea (~2009) Rubella Surgical History (Updated 06/09/21 @ 21:11 by Natasha Merino) Anesthesia History of colectomy (~2015) History of endoscopy (~2017) History of hysterectomy (~1991) Status post small bowel resection (~2019) Family History (Updated 06/09/21 @ 21:20 by Natasha Merino) Father Colon cancer FAP (familial adenomatous polyposis) Mother History of heart disease Mental health problem Brother History of heart disease Grandmother History of heart disease Grandfather Drowned Grandmother Cancer Family/Other FAP (familial adenomatous polyposis) Social History household members: none Smoking Status: Former smoker alcohol intake: current Assessment & Plan Post-op Postoperative Procedures: Procedures Operation Date: 08/31/21 09:45 Actual Procedure Side Surgeon p REVISION OF ILEOSTOMY Right Jg Reyes MD Postoperative status narrative: Temperature could be related to urinary tract or to the cellulitis. I added back Zosyn. I had marked the outlines of the cellulitis. I changed her bag. The skin is becoming a little excoriated underneath. Postoperative plan narrative: Continue IV antibiotics. Advance diet. May need ostomy teaching. ADRIAN Melara. Follow cellulitis Quality VTE Deep Vein Thrombosis/Pulmonary Embolism Present on Admission: No
[2021-09-03] MEDS: ENOXAPARIN 40 MG/0.4 ML SYRINGE SUBCUT (12:56)
--- NOTE | 2021-09-03 14:12 | PC.NURSE ---
Addendum entered by Denise Patrick R.N. 09/03/21 14:19: Dr. Sofia into see patient and changed patients illeostomy appliance and emptied 350cc of liquid brown stool. She was just given oxycodone and is resting comfortably now. Stoma is flat and beefy red. Original Note: 0800- Patients lower abdomen is red and warm to touch. Patients temperature 99.7, given tylenol to help prevent further increase in fever. Patient given 10mg of po oxycodone around 0700 and this has been adequate for pain control. She has an illeostomy to the r.side of mid abdomen that is putting out brown liquid stool. Patient napped after pain medication given. She is not taking in oral intake much, states that she feels bloated. Encouraged to get up and ambulate but patient does not seem to want to do much.
[2021-09-03 15:13] LABS: Add Manual Diff / Slide Review NO; Basophils Absolute Auto 0 /uL (0-100); Basophils Percent Auto 0.2 % (0-2); Eosinophils Absolute Auto 100 /uL (0-450); Eosinophils Percent Auto 1.8 % (2-4); Hemoglobin 11.3 g/dL (12.0-16.0); Lymphocytes Absolute Auto 700 /uL (1100-4500); Lymphocytes Percent Auto 9.4 % (25-40); Mean Corpuscular HGB Conc 34.4 % (30-36); Mean Corpuscular Hemoglobin 32.2 PG (26-34); Mean Corpuscular Volume 93.8 fL (80-100); Monocytes Absolute Auto 600 /uL (0-900); Monocytes Percent Auto 7.4 % (3-14); Neutrophils Absolute Auto 6100 /uL (1500-7000); Neutrophils Percent Auto 81.2 % (50-75); Platelet Count 201 X10^3/uL (150-400); Red Blood Cell Count 3.52 X10^6/uL (4.0-5.2); Red Cell Distribution Width 12.1 % (11.6-14.8); White Blood Cell Count 7.5 X10^3/uL (4.5-11.0)
[2021-09-03] MEDS: DEXTROSE 5%-0.45NS W/KCL 20MEQ 1,000 ML 42 MEQ IV (17:56)
[2021-09-03] MEDS: KETOROLAC 30 MG/ML VIAL 15 MG IV (22:01)
[2021-09-03] MEDS: FAMOTIDINE 20 MG TABLET PO (22:45)
[2021-09-04] MEDS: PIPERACILLIN/TAZO 3.375 GM in SODIUM CHLORIDE 0.9% 100 ML 25 ML IV ×3 (01:34→17:55)
[2021-09-04 03:00] VITALS: BP 147/77; PULSE 71; RESP 20; TEMP 36.6; O2SAT 95
[2021-09-04] MEDS: HYDROMORPHONE 0.5 MG INJ IV ×6 (04:09→23:32)
[2021-09-04 07:00] VITALS: BP 157/75; PULSE 72; RESP 16; TEMP 36.6; O2SAT 94
[2021-09-04] MEDS: OXYCODONE IR 10 MG TABLET PO ×2 (08:23→12:03)
[2021-09-04] MEDS: ENOXAPARIN 40 MG/0.4 ML SYRINGE SUBCUT (08:23)
[2021-09-04 11:00] VITALS: BP 163/83; PULSE 76; RESP 16; TEMP 36.7; O2SAT 94
--- NOTE | 2021-09-04 11:57 | PC.NURSE ---
Addendum entered by Denise Patrick R.N. 09/04/21 18:42: Patients dejesus putting out adequate urine. Patients TPN has been started. Addendum entered by Denise Patrick R.N. 09/04/21 16:36: Patient projectile vomited earlier and NG tube placed, she has green bile in tubing and collection chamber. Patient is to low intermittant suction. She also had a dejesus catheter placed as she was not able to void. She bladder scanned for 330cc. also ordered TPN for patient and this will be started at 1800. She is resting comfortably supine, and getting dilaudid for pain control. also ordered a picc line which has been placed. She is resting now and denies pain. Addendum entered by Denise Patrick R.N. 09/04/21 12:00: Patient given oxycodone for discomfort at 1200, going to attempt to walk patient now. Original Note: Assess- Patient is alert and oriented, medicated with oxycodone and this has been helpful but she complains of bloating. We are going to walk today in the halls and start in her room. She has some cellulitis around her illeostomy bag and lower abdomen. Red and warm to touch. Illeostomy is putting out liquid stool, stoma is flat and beefy red. IVF infusing and patient is calm at this time.
--- NOTE | 2021-09-04 13:09 | P.PN_ITS ---
Subjective Subjective Date Patient Seen: 09/04/21 Time Patient Seen: 13:09 Interval history: Zuly is feeling worse today. She has not had much out of her ileostomy and she just vomited. She feels bloated and distended. She states she is hungry but she cannot eat because she feels too distended. Exam Vital Signs (past 8 hours): - 09/04/21 07:00 09/04/21 11:00 Temperature 97.9 F 98.1 F Pulse Rate 72 76 Respiratory Rate 16 16 Blood Pressure 157/75 H 163/83 H Pulse Oximetry 94 94 Oxygen Delivery Method Nasal Cannula Oxygen Flow Rate 0 Narrative Exam Narrative: Abdomen is distended Ileostomy with scant dark output Moderate lower abdominal cellulitis Objective Labs Result Diagrams: 09/03/21 14:58 09/02/21 05:53 Labs: Laboratory Results - last 24 hr 09/03/21 14:58 WBC 7.5 RBC 3.52 L Hgb 11.3 L Hct 33.0 L MCV 93.8 MCH 32.2 MCHC 34.4 RDW 12.1 Plt Count 201 Neut % (Auto) 81.2 H Lymph % (Auto) 9.4 L [place] % (Auto) 7.4 Eos % (Auto) 1.8 L Baso % (Auto) 0.2 Neut # (Auto) 6100 Lymph # (Auto) 700 L [place] # (Auto) 600 Eos # (Auto) 100 Baso # (Auto) 0 PFSH Medical History Lynn's esophagus (~2011) Carpal tunnel syndrome (~2002) Chicken pox Colon polyps (~1998) Familial adenomatous polyposis (~1998) Fibroids (~1979) GERD (gastroesophageal reflux disease) (~2011) Measles Mumps Osteoarthritis (~2011) [place] spotted fever (~2019) Rosacea (~2009) Rubella Surgical History (Updated 06/09/21 @ 21:11 by Natasha Merino) Anesthesia History of colectomy (~2015) History of endoscopy (~2017) History of hysterectomy (~1991) Status post small bowel resection (~2019) Family History (Updated 06/09/21 @ 21:20 by Natasha Merino) Father Colon cancer FAP (familial adenomatous polyposis) Mother History of heart disease Mental health problem Brother History of heart disease Grandmother History of heart disease Grandfather Drowned Grandmother Cancer Family/Other FAP (familial adenomatous polyposis) Social History household members: none Smoking Status: Former smoker alcohol intake: current Assessment & Plan Assessment and plan (1) Postoperative examination: Status: Acute Plan She appears to be obstructed again. I suspect she has a recurrent obstruction again related to her ileostomy. I suspect she has essentially prolapse of the distal most portion of her ileum into the space between fascia and skin of her ileostomy and this is causing kinking and obstruction. If she does not open up soon we will have to return to the operating room and recite the ileostomy to the left abdomen. We will watch and wait for another 2 days to see if she opens up. We will place a PICC line and start TPN. She will need NG tube she continues to vomit. Time Spent With Patient Critical Care time: I spent a total of [] minutes of critical care time on this patient's care today; this time is exclusive of procedural time. Quality VTE Deep Vein Thrombosis/Pulmonary Embolism Present on Admission: No
--- NOTE | 2021-09-04 13:13 | DI.RAD.S_ITS ---
PROCEDURE: XR CHEST 1V INDICATIONS: ng tube placement TECHNIQUE: One view of the chest was acquired. COMPARISON: [facility], , XR CHEST 1V, 08/30/2021, 16:39. FINDINGS: Surgical changes and devices: Nasogastric tube is well positioned. Lungs and pleura: Bibasilar atelectasis. No pneumothorax or pleural effusion. Mediastinum: Mediastinal contours appear normal. Heart size is normal. Bones and chest wall: No suspicious bony lesions. Overlying soft tissues appear unremarkable. IMPRESSION: Nasogastric tube is well positioned. Dictated by: Martell Murguia M.D. on 09/04/2021 at 13:50 Approved by: Martell Murguia M.D. on 09/04/2021 at 13:50
[2021-09-04 14:00] LABS: Add Manual Diff / Slide Review NO; Basophils Absolute Auto 0 /uL (0-100); Basophils Percent Auto 0.2 % (0-2); Eosinophils Absolute Auto 200 /uL (0-450); Eosinophils Percent Auto 2.4 % (2-4); Hematocrit 34.7 % (36-46); Hemoglobin 11.8 g/dL (12.0-16.0); Lymphocytes Absolute Auto 800 /uL (1100-4500); Mean Corpuscular Hemoglobin 32.1 PG (26-34); Mean Corpuscular Volume 94.5 fL (80-100); Monocytes Absolute Auto 600 /uL (0-900); Monocytes Percent Auto 6.8 % (3-14); Neutrophils Absolute Auto 7000 /uL (1500-7000); Neutrophils Percent Auto 81.6 % (50-75); Platelet Count 238 X10^3/uL (150-400); Red Blood Cell Count 3.67 X10^6/uL (4.0-5.2); Red Cell Distribution Width 12.6 % (11.6-14.8); White Blood Cell Count 8.6 X10^3/uL (4.5-11.0)
[2021-09-04 14:14] LABS: Blood Urea Nitrogen 13 mg/dL (7-17); Carbon Dioxide 26 mmol/L (22-32); Chloride 99 mmol/L (98-107); Estimated Glomerular Filt Rate > 60.0 mL/min (>60); Glucose 118 mg/dL (80-110); HEMOLYSIS 23 (0-50); Potassium 3.5 mmol/L (3.4-5.1); Sodium 132 mmol/L (137-145)
--- NOTE | 2021-09-04 14:47 | CM.DPNOTE ---
DCP Note Met w/patient this afternoon; reviewed DCP. Patient states it's going to be awhile now and explains she has another bowel blockage and may need additional surgery. Patient's affect is flat, she states she can DC home w/friends to assist as needed. Patient asks for a dietary consult before DC to assist in preventing further SBO Patient denies further need from this PRINCIPAL TECHNICAL ARCHITECT JW
[2021-09-04 15:00] VITALS: BP 156/73; PULSE 73; RESP 16; TEMP 36.6; O2SAT 91
--- NOTE | 2021-09-04 16:00 | DI.RAD.S_ITS ---
PROCEDURE: XR CHEST FOR PICC 1V INDICATIONS: picc placement TECHNIQUE: One view of the chest was acquired. COMPARISON: [facility], CT, CT ABDOMEN PELVIS W CON, 09/01/2021, 4:44. [facility], CR, XR CHEST 1V, 08/30/2021, 16:39. [facility], CR, XR CHEST 1V, 09/04/2021, 13:23. FINDINGS: Surgical changes and devices: A left-sided PICC line is seen, with the tip overlying the inferior aspect of the superior vena cava, at the cavoatrial junction. A gastric tube is seen, with the tip coiled overlying the mid stomach. Lungs and pleura: There is a trace right-sided pleural effusion. No pneumothorax is seen. Low lung volumes are noted. This causes a crowded appearance to the lung markings and limits evaluation. Mediastinum: Mediastinal contours appear normal. Heart size is normal. Bones and chest wall: No suspicious bony lesions. Overlying soft tissues appear unremarkable. IMPRESSION: The tip of the left-sided PICC line can be seen overlying the inferior aspect of the superior vena cava. Trace right-sided pleural effusion. Dictated by: Petey Reyes M.D. on 09/04/2021 at 15:27 Approved by: Petey Reyes M.D. on 09/04/2021 at 15:28
[2021-09-04] MEDS: AA 5 %/CALCIUM/LYTES/DEXT 20 % 1,000 ML with MULTIVITAMIN 10 ML, TRACE ELEMENTS 1 ML, F... 42.208 ML IV (18:09)
[2021-09-04 19:05] VITALS: BP 144/75; PULSE 73; RESP 16; TEMP 36.6; O2SAT 93
[2021-09-04 23:00] VITALS: BP 154/70; PULSE 69; RESP 16; TEMP 36.6; O2SAT 94
[2021-09-05] MEDS: PIPERACILLIN/TAZO 3.375 GM in SODIUM CHLORIDE 0.9% 100 ML 25 ML IV ×3 (01:27→18:11)
[2021-09-05 03:50] VITALS: BP 163/72; PULSE 78; RESP 16; TEMP 36.7; O2SAT 93
[2021-09-05] MEDS: HYDROMORPHONE 0.5 MG INJ IV ×6 (04:27→21:37)
[2021-09-05 05:22] LABS: BUN Creatinine Ratio 15.4 (6-22); Blood Urea Nitrogen 10 mg/dL (7-17); Calcium 7.9 mg/dL (8.4-10.2); Carbon Dioxide 32 mmol/L (22-32); Chloride 98 mmol/L (98-107); Estimated Glomerular Filt Rate > 60.0 mL/min (>60); Glucose 152 mg/dL (80-110); HEMOLYSIS < 15 (0-50); Magnesium 2.1 mg/dL (1.6-2.3); Phosphorous 3.6 mg/dL (2.8-4.1); Potassium 3.1 mmol/L (3.4-5.1); Sodium 136 mmol/L (137-145)
[2021-09-05 05:37] LABS: Procalcitonin 0.34 ng/mL (<0.5)
[2021-09-05 07:00] VITALS: BP 156/67; PULSE 65; RESP 16; TEMP 36.6; O2SAT 95
[2021-09-05] MEDS: ENOXAPARIN 40 MG/0.4 ML SYRINGE SUBCUT (08:28)
[2021-09-05] MEDS: POTASSIUM CHLORIDE IN WATER 10 MEQ/100 ML PIGGYBACK 100 MEQ IV ×4 (10:39→14:08)
[2021-09-05 11:00] VITALS: BP 171/57; PULSE 77; RESP 16; TEMP 36.6; O2SAT 94
--- NOTE | 2021-09-05 14:11 | PM.PN.1 ---
Subjective Subjective Date Patient Seen: 09/05/21 Time Patient Seen: 14:11 Interval history: Some ileostomy output but she continues to experience bloating and discomfort. Exam Vital Signs (past 8 hours): - 09/05/21 07:00 Temperature 97.9 F Pulse Rate 65 Respiratory Rate 16 Blood Pressure 156/67 H Pulse Oximetry 95 Oxygen Delivery Method Nasal Cannula Oxygen Flow Rate 0 Narrative Exam Narrative: Somewhat less distended than yesterday but not to baseline Decreased cellulitis of lower abdominal wall Objective Labs Result Diagrams: 09/04/21 13:50 09/05/21 04:20 Labs: Laboratory Results - last 24 hr 09/04/21 09/05/21 09/05/21 13:50 04:20 04:20 Sodium 132 L 136 L Potassium 3.5 3.1 L Chloride 99 98 Carbon Dioxide 26 32 BUN 13 10 Creatinine 0.52 0.65 Estimated GFR > 60.0 > 60.0 BUN/Creatinine Ratio 25.0 H 15.4 Glucose 118 H 152 H Calcium 8.0 L 7.9 L Phosphorus 3.6 Magnesium 2.1 Procalcitonin 0.34 PFSH Medical History Lynn's esophagus (~2011) Carpal tunnel syndrome (~2002) Chicken pox Colon polyps (~1998) Familial adenomatous polyposis (~1998) Fibroids (~1979) GERD (gastroesophageal reflux disease) (~2011) Measles Mumps Osteoarthritis (~2011) [place] spotted fever (~2019) Rosacea (~2009) Rubella Surgical History (Updated 06/09/21 @ 21:11 by Natasha Merino) Anesthesia History of colectomy (~2015) History of endoscopy (~2017) History of hysterectomy (~1991) Status post small bowel resection (~2019) Family History (Updated 06/09/21 @ 21:20 by Natasha Merino) Father Colon cancer FAP (familial adenomatous polyposis) Mother History of heart disease Mental health problem Brother History of heart disease Grandmother History of heart disease Grandfather Drowned Grandmother Cancer Family/Other FAP (familial adenomatous polyposis) Social History household members: none Smoking Status: Former smoker alcohol intake: current Assessment & Plan Assessment and plan (1) Postoperative examination: Status: Acute Plan She remains partially obstructed for now Will plan to resite ostomy to left lower quadrant tomorrow Will position new ostomy slightly higher on the abdomen since she has gained wait and has trouble visualizing the appliance at its current location Continue TPN Hold lovenox Time Spent With Patient Critical Care time: I spent a total of [] minutes of critical care time on this patient's care today; this time is exclusive of procedural time. Quality VTE Deep Vein Thrombosis/Pulmonary Embolism Present on Admission: No
[2021-09-05 14:34] LABS: Add Manual Diff / Slide Review NO; Basophils Absolute Auto 0 /uL (0-100); Basophils Percent Auto 0.4 % (0-2); Eosinophils Absolute Auto 200 /uL (0-450); Eosinophils Percent Auto 2.7 % (2-4); Hematocrit 34.5 % (36-46); Hemoglobin 11.7 g/dL (12.0-16.0); Lymphocytes Absolute Auto 1200 /uL (1100-4500); Lymphocytes Percent Auto 12.8 % (25-40); Mean Corpuscular HGB Conc 33.8 % (30-36); Mean Corpuscular Hemoglobin 31.9 PG (26-34); Mean Corpuscular Volume 94.4 fL (80-100); Monocytes Absolute Auto 700 /uL (0-900); Monocytes Percent Auto 7.6 % (3-14); Neutrophils Absolute Auto 6900 /uL (1500-7000); Neutrophils Percent Auto 76.5 % (50-75); Platelet Count 255 X10^3/uL (150-400); Red Blood Cell Count 3.66 X10^6/uL (4.0-5.2); Red Cell Distribution Width 12.2 % (11.6-14.8)
--- NOTE | 2021-09-05 14:43 | PC.NURSE ---
Addendum entered by Denise Patrick R.N. 09/05/21 14:53: Late entry for yesterday 09/04/21- 14F NG tube put in patients L Nguyen at 70cm, she is tolerating this well and had a total of 350cc of green bile out. Addendum entered by Denise Patrick R.N. 09/05/21 14:46: 1447- Patients friend in room visiting. Patients 4th potassium rider is infusing, as she had an order for 40meq, she is visiting with her friend now. Per he is going to take her to surgery in the morning. Original Note: Patients illeostomy is putting out medium amounts of loose brown stool. She has an NG tube to low intermittant suction that is putting out green bile in chamber. She also has a dejesus catheter putting out straw colored urine. Using dilaudid 0.5mg every 3 hours or so. She does well with this for pain and discomfort. TPN will be hung this evening and sliding scale insulin will be started with regular insulin at 0600, 1200, 1800, and 0000.
[2021-09-05 15:00] VITALS: BP 161/80; PULSE 69; RESP 16; TEMP 36.8; O2SAT 96
[2021-09-05 15:05] LABS: Albumin 2.6 g/dL (3.5-5.0)
[2021-09-05] MEDS: DEXTROSE 5%-0.45NS W/KCL 20MEQ 1,000 ML 42 MEQ IV (15:18)
--- NOTE | 2021-09-05 16:08 | PC.NURSE ---
Addendum entered by Denise Patrick R.N. 09/05/21 19:00: Patients chest pain resolved. Bp with systolic of 184, rechecked and down to 168/79. Illeostomy reinforced. Patients TPN hung a bit after 1800 and her blood sugar was 152, 1u of insulin given. Original Note: At 1540- patient complained of intense chest pain of a 9/10. Called Dr. Reyes who ordered and EKG and cardiac enzymes. The EKG shows NSR, and labs were just drawn. Will call with all results.
[2021-09-05 16:34] LABS: Creatine Kinase 323 U/L (30-135)
[2021-09-05 16:47] LABS: Troponin I < 0.012 ng/mL (0.01-0.034)
[2021-09-05 16:50] LABS: CKMB % Relative Index 0.1 % (1.5-5.0); Creatine Kinase MB 0.45 ng/mL (<2.37)
[2021-09-05] MEDS: INSULIN LISPRO 100 UNIT/ML 3ML VIAL SUBCUT (18:13)
[2021-09-05] MEDS: AA 5 %/CALCIUM/LYTES/DEXT 20 % 1,000 ML with MULTIVITAMIN 10 ML, TRACE ELEMENTS 1 ML, F... 42.208 ML IV (18:15)
[2021-09-05 21:22] VITALS: BP 150/66; PULSE 59; RESP 18; TEMP 37; O2SAT 96
[2021-09-05 23:56] VITALS: BP 144/59; PULSE 71; RESP 18; TEMP 37; O2SAT 93
[2021-09-06] VITALS (18 sets, daily range): BP systolic 104–178; BP diastolic 45–86; PULSE 65–112; RESP 12–22; TEMP 36.4–37.6; O2SAT 91–98; BMI 27.9
--- NOTE | 2021-09-06 | PATH_ITS ---
[facility] Accession Number: [id number] . 01 Material submitted: . colon - ILEOSTOMY . 02 Diagnosis: Ileostomy, Takedown: Ulcerated enteric tissue with ischemia-type changes, including ulceration, crypt atrophy and congestion. Margin appears viable. Negative for dysplasia and malignancy. MRV 09/08/2021 1028 Local . 02 Electronically signed: . Kassidy Johnson MD, Pathologist NPI- [id number] . 01 Gross description: . The specimen is received in formalin, labeled ileostomy and consists of a 9.5 cm in length by 3.5 cm in diameter portion of small intestine with a centrally located pink-red stoma site measuring 3.0 x 2.0 cm. The serosa is red-brown with hardy purulent exudate. Opening reveals a hardy-pink mucosa with normal mucosal folds. Agricultural Research Technician sections are submitted. . A1: Stapled margins, benefits representative perpendicular sections. A2-A3: Stoma site. (EA:[id number]) /MRV 09/07/2021 1256 Local . 02 Pathologist provided ICD-10: Z93.2 . 02 CPT . 020885 Performed at: 01 [facility] [address], [place], [place] [id number] MD James Bridges MD Phone: [phone] Performed at: 02 [facility] [address] [place], [place] [id number] MD Kassidy Johnson MD Phone: [phone]
[2021-09-06] MEDS: KETOROLAC 30 MG/ML VIAL 15 MG IV (00:44)
[2021-09-06] MEDS: HYDROMORPHONE 0.5 MG INJ IV ×7 (00:44→21:53)
[2021-09-06] MEDS: PIPERACILLIN/TAZO 3.375 GM in SODIUM CHLORIDE 0.9% 100 ML 25 ML IV ×3 (01:03→16:42)
[2021-09-06 06:41] LABS: BUN Creatinine Ratio 13.8 (6-22); Blood Urea Nitrogen 8 mg/dL (7-17); Calcium 7.9 mg/dL (8.4-10.2); Carbon Dioxide 32 mmol/L (22-32); Chloride 100 mmol/L (98-107); Estimated Glomerular Filt Rate > 60.0 mL/min (>60); Glucose 149 mg/dL (80-110); HEMOLYSIS < 15 (0-50); Magnesium 2.1 mg/dL (1.6-2.3); Phosphorous 4.3 mg/dL (2.8-4.1); Potassium 3.3 mmol/L (3.4-5.1); Sodium 136 mmol/L (137-145)
[2021-09-06 08:20] LABS: COVID19 -Nasal RAPID Negative (Negative)
[2021-09-06 09:40] LABS: Add Manual Diff / Slide Review NO; Basophils Absolute Auto 0 /uL (0-100); Basophils Percent Auto 0.4 % (0-2); Eosinophils Absolute Auto 300 /uL (0-450); Eosinophils Percent Auto 3.4 % (2-4); Hematocrit 33.8 % (36-46); Hemoglobin 11.5 g/dL (12.0-16.0); Lymphocytes Absolute Auto 1200 /uL (1100-4500); Lymphocytes Percent Auto 14.8 % (25-40); Mean Corpuscular Volume 94.1 fL (80-100); Monocytes Absolute Auto 900 /uL (0-900); Monocytes Percent Auto 10.2 % (3-14); Neutrophils Absolute Auto 6000 /uL (1500-7000); Neutrophils Percent Auto 71.2 % (50-75); Platelet Count 248 X10^3/uL (150-400); Red Blood Cell Count 3.59 X10^6/uL (4.0-5.2); Red Cell Distribution Width 12.3 % (11.6-14.8); White Blood Cell Count 8.4 X10^3/uL (4.5-11.0)
--- NOTE | 2021-09-06 12:58 | PC.NURSE ---
Pt transported to PreOP by OR nurses via bed. A&Ox3. VSS,afebrile on RA. BG 159, insulin held as TPN and IVF stopped. Pt reports pain 5/10 is tolerable upon reassessment of recent 0.5 mg IV dilaudid.
--- NOTE | 2021-09-06 13:17 | PM.PREOP ---
Pre-operative Note COVID-19 COVID-19 status: Negative Result date/Date tested (Pos, Neg/Pending): 09/06/21 Interval Note History & Physical reviewed/Exam performed by Physician: Yes Changes to H&P: No ASA Class (for procedural sedation): II
--- NOTE | 2021-09-06 14:13 | DIET.PN1 ---
Addendum entered by Nory Jones 09/06/21 14:30: Recc continuing current rate of 42mL/h today then increase as tolerated to goal with recommended increase as follows: day 1: 42mL/h day 2: 62mL/h day 3 (goal): 82mL/h and begin lipids. EER: 1950 kcal (25kcal/kg), 95g PRO (1.2g/kg per postsurgical healing) Original Note: Dietary Progress Note Assessment: 71y F admitted for bowel obstruction near current ileostomy site headed back to OR for ileostomy replacement to different site in order to make self-care easier for pt as well as to avoid apparent fascial defect near current site. Pt having bloating, minimal ileostomy output, placed on TPN over weekend. RD calculating pts EER for appropriate TPN rate. Pt reports gaining some weight over last several years. Ht: 167.64 cm Wt: 78.5 kg BMI: 27.9 Last BM: 09/04/21 (09/06/21 12:58) MNA: 14 Jogre Score: 18 Diet: 09/04/21 17:45 NPO Diet Diet Modifications: Safety Tray needed?: No NPO Type: Strict Labs: RBC 3.59 X10^6/uL (4.0-5.2) L 09/06/21 09:30 Hgb 11.5 g/dL (12.0-16.0) L 09/06/21 09:30 Hct 33.8 % (36-46) L 09/06/21 09:30 Creatinine 0.58 mg/dL (0.52-1.04) 09/06/21 06:23 Lactate 1.0 mmol/L (0.7-2.1) 08/29/21 12:45 Nutrition Diagnosis: inadequate protein calorie intake r/t bowel obstruction and altered GI function (ileostomy revision) aeb pt on LOS d8 headed to surgery for ileostomy reversion, pt on TPN secondary to bloating, reduced ileostomy output. Interventions: 1. Recc goal of continuous TPN via PICC, 2L Clinimix 5/20 with 250mL IVFE three times per week (M, W, F) providing 100% kcal and 100% protein needs. 2. Recc continuing current rate of 42mL/h today then increase as tolerated to goal with recommended increase as follows: day 1: 42mL/h day 2: 62mL/h day 3 (goal): 82mL/h and begin lipids. EER: 1950 kcal (25kcal/kg), 95g PRO (1.2g/kg per postsurgical healing) Monitoring/Evaluations: TPN tolerance, return of bowl function, return of PO intake, please choose low fiber diet once pts cleared for solid POs to reduce chance of blocking ostomy. Electronically Signed by: Nory Jones 09/06/21 14:13 Clinical Dietitian [address] [address]
[2021-09-06] MEDS: LIDOCAINE 1% W/EPI 20 ML INJ (15:03)
[2021-09-06] MEDS: BUPIVACAINE LIPOSOME 266 MG/20 ML VIAL INJ (16:45)
--- NOTE | 2021-09-06 17:22 | P.OP_ITS ---
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 The patient was brought to the operating room, and a spinal block was attempted but was unsuccessful due to her anasarca. Patient was then placed on the table in the supine position with the arms out. General endotracheal anesthesia was induced. A [id number] 2-0 silk suture was placed to closed the end ileostomy. The abdomen including the end ileostomy were prepped with Betadine and draped in the normal fashion. A time-out was performed. We made a low midline incision excising the old laparotomy scar. There was a small fat containing incisional hernia through the fascia which allowed entry into the abdomen bluntly using an index finger. We opened the rest of the fascia with cautery with a finger inserted. We then placed an Milton wound protractor however it was obscuring the view of the end ileostomy so was removed. We then set up the Bookwalter retractor. We performed a lysis of adhesions to mobilize the ileum as it entered the right lower quadrant abdominal wall. We then took down the mucocutaneous junction and dissected the bowel that was in the subcutaneous space. There were multiple adhesions in the he became obvious as we mobilized bowel that there was indeed a parastomal hernia containing the distal portions of the ileum. This was the cause of the obstruction and appeared chronic. We did created an enterotomy in the bowel above the fascia and this was closed with a [id number]-uy-[id number] 3-0 silk suture. Eventually we were able to completely free the tangled mass of bowel from the fascia and the subcutaneous adhesions and dropped back into the abdominal cavity. We then performed further lysis of adhesions to mobilize the ileum and allow it to easily reach the left lower quadrant. We removed the distal 10-15 cm of bowel which had been incarcerated within the parastomal hernia using a single firing of the linear cutting DALILA stapler with a blue load. This appeared to be the source of the obstruction. We then created a new ileostomy site in the left lower quadrant slightly slightly higher than the old site. We left the distal end of the ileum out with Allis clamps attached. We then placed a large Odilon drain in the pelvis as there was some murky fluid in the pelvis probably from the prior operation. We brought the drain out through a right lower quadrant stab incision and secured to the skin with a nylon stitch. We then examined the old ileostomy defect. We dissected some of the hernia sac off of the fascial layers. We closed what appeared to be the rectus muscle with multiple interrupted 0 Ethibond sutures in a vertical direction. We then closed the anterior sheath transversely with multiple interrupted 0 Ethibond sutures. Finally, Exparel was injected into the midline fascial wound and the laparotomy incision was closed with running 0 PDS suture reinforced with multiple interrupted 0 Vicryl internal retention sutures. The skin was closed with deepa and a edgar dressing was applied. We then packed the old right lower quadrant ileostomy wound with dry Kerlix gauze. We then matured the new left lower quadrant ileostomy in a Ciara fashion using multiple 3-0 Vicryl sutures. Appliance was applied. The patient was awakened brought to recovery room. Post-operative Condition: stable Disposition: PACU
[2021-09-06] MEDS: fentaNYL 100 MCG/2 ML INJ IV (17:30)
[2021-09-06] MEDS: HYDROMORPHONE 2 MG INJ IV ×8 (17:35→18:10)
[2021-09-06] MEDS: ONDANSETRON 4 MG/2 ML INJ IV (17:55)
[2021-09-06] MEDS: LACTATED RINGERS 1,000 ML 42 ML IV (18:48)
[2021-09-06] MEDS: AA 5 %/CALCIUM/LYTES/DEXT 20 % 1,500 ML with MULTIVITAMIN 10 ML, TRACE ELEMENTS 1 ML, F... 63.875 ML IV (19:24)
--- NOTE | 2021-09-06 19:46 | PC.NURSE ---
Pt arrived from PACU at 1905 settled into room, NGT to LIWS, ABdomen dressing CDI with ROGELIO drain minimal serosanguineous fluid. VSS, afebril on RA She is A&Ox3 minimal pain. Reported to oncoming shift.
[2021-09-06] MEDS: LORazepam 2 MG/ML INJ 0.5 MG IV (21:51)
[2021-09-06] MEDS: POTASSIUM CHLORIDE IN WATER 10 MEQ/100 ML PIGGYBACK 100 MEQ IV (22:56)
[2021-09-06] MEDS: CYCLOBENZAPRINE 10 MG TABLET 5 MG TUBE (23:12)
[2021-09-07] MEDS: PIPERACILLIN/TAZO 3.375 GM in SODIUM CHLORIDE 0.9% 100 ML 25 ML IV (00:28)
[2021-09-07] MEDS: POTASSIUM CHLORIDE IN WATER 10 MEQ/100 ML PIGGYBACK 100 MEQ IV ×3 (01:21→03:37)
[2021-09-07] MEDS: HYDROMORPHONE 0.5 MG INJ IV ×5 (01:43→10:35)
[2021-09-07 03:00] VITALS: BP 100/49; PULSE 95; RESP 17; TEMP 36.6; O2SAT 95
[2021-09-07] MEDS: LORazepam 2 MG/ML INJ 0.5 MG IV ×3 (03:31→21:13)
[2021-09-07 05:52] LABS: BUN Creatinine Ratio 16.7 (6-22); Blood Urea Nitrogen 13 mg/dL (7-17); Calcium 7.7 mg/dL (8.4-10.2); Carbon Dioxide 29 mmol/L (22-32); Chloride 101 mmol/L (98-107); Estimated Glomerular Filt Rate > 60.0 mL/min (>60); Glucose 147 mg/dL (80-110); HEMOLYSIS < 15 (0-50); Phosphorous 3.5 mg/dL (2.8-4.1); Potassium 4.3 mmol/L (3.4-5.1); Sodium 134 mmol/L (137-145)
[2021-09-07 08:29] VITALS: BP 131/47; PULSE 94; RESP 16; TEMP 36.9; O2SAT 96
--- NOTE | 2021-09-07 08:42 | P.PN_ITS ---
Subjective Subjective Date Patient Seen: 09/07/21 Time Patient Seen: 08:42 Interval history: Complains of abdominal pain. There has been no significant stool output yet from the ileostomy. The midline negative pressure dressing has lost its seal the remains in place covering the wound. Exam Vital Signs (past 8 hours): - 09/07/21 03:00 Temperature 97.8 F Pulse Rate 95 H Respiratory Rate 17 Blood Pressure 100/49 L Pulse Oximetry 95 Oxygen Delivery Method Room Air Oxygen Flow Rate 0 Narrative Exam Narrative: The left lower quadrant ileostomy is well perfused with no stool output yet. There is clear fluid in the bag. Other dressings remain in place and covering wounds. The drain output is serosanguineous. Objective Labs Result Diagrams: 09/06/21 09:30 09/07/21 05:28 Labs: Laboratory Results - last 24 hr 09/06/21 09/07/21 09:30 05:28 WBC 8.4 RBC 3.59 L Hgb 11.5 L Hct 33.8 L MCV 94.1 MCH 32.0 MCHC 34.0 RDW 12.3 Plt Count 248 Neut % (Auto) 71.2 Lymph % (Auto) 14.8 L [place] % (Auto) 10.2 Eos % (Auto) 3.4 Baso % (Auto) 0.4 Neut # (Auto) 6000 Lymph # (Auto) 1200 [place] # (Auto) 900 Eos # (Auto) 300 Baso # (Auto) 0 Sodium 134 L Potassium 4.3 Chloride 101 Carbon Dioxide 29 BUN 13 Creatinine 0.78 Estimated GFR > 60.0 BUN/Creatinine Ratio 16.7 Glucose 147 H Calcium 7.7 L Phosphorus 3.5 Magnesium 2.0 PFSH Medical History Lynn's esophagus (~2011) Carpal tunnel syndrome (~2002) Chicken pox Colon polyps (~1998) Familial adenomatous polyposis (~1998) Fibroids (~1979) GERD (gastroesophageal reflux disease) (~2011) Measles Mumps Osteoarthritis (~2011) [place] spotted fever (~2019) Rosacea (~2009) Rubella Surgical History (Updated 06/09/21 @ 21:11 by Natasha Merino) Anesthesia History of colectomy (~2015) History of endoscopy (~2017) History of hysterectomy (~1991) Status post small bowel resection (~2019) Family History (Updated 06/09/21 @ 21:20 by Natasha Merino) Father Colon cancer FAP (familial adenomatous polyposis) Mother History of heart disease Mental health problem Brother History of heart disease Grandmother History of heart disease Grandfather Drowned Grandmother Cancer Family/Other FAP (familial adenomatous polyposis) Social History household members: none Smoking Status: Former smoker alcohol intake: current Assessment & Plan Assessment and plan (1) Postoperative examination: Status: Acute Plan Postoperative day 1 following exploratory laparotomy with re-siting of the ileostomy to the left lower quadrant. Await bowel function Plan start Lovenox tonight. Time Spent With Patient Critical Care time: I spent a total of [] minutes of critical care time on this patient's care today; this time is exclusive of procedural time. Quality VTE Deep Vein Thrombosis/Pulmonary Embolism Present on Admission: No
--- NOTE | 2021-09-07 11:16 | PC.NURSE ---
Pt resting in bed with NG to LIS. C/O pain to abdomen 8 at 0800 and 9.5/10 at 1035. Pt given pain meds to assist with abdominal pain and ativan for anxiety/nausea. Pt states she would like Dr. Reyes called. Dr. Reyes ordered increased dose of Dilaudid and Pt also seen by Dr. Farfan who ordered Toradol. Toradol given. Pt denies needs at this time.
[2021-09-07] MEDS: KETOROLAC 30 MG/ML VIAL IM (11:32)
[2021-09-07] MEDS: HYDROMORPHONE 1 MG INJ IV ×6 (12:02→21:12)
[2021-09-07] MEDS: SODIUM CHLORIDE 0.9% FLUSH 10 ML IV ×2 (12:06→13:22)
[2021-09-07 13:00] VITALS: BP 120/56; PULSE 90; RESP 18; TEMP 36.3; O2SAT 96
--- NOTE | 2021-09-07 13:48 | DIET.PN1 ---
Dietary Progress Note RD Note: Pt tolerating TPN running at 62mL/h with no output in ileostomy at this time, having some pain management issues. BG and refeeding labs WNL. Ht: 167.64 cm Wt: 78.5 kg BMI: 27.9 Last BM: 09/04/21 (09/06/21 12:58) MNA: 14 Jorge Score: 18 Diet: 09/04/21 17:45 NPO Diet Diet Modifications: Safety Tray needed?: No NPO Type: Strict Labs: RBC 3.59 X10^6/uL (4.0-5.2) L 09/06/21 09:30 Hgb 11.5 g/dL (12.0-16.0) L 09/06/21 09:30 Hct 33.8 % (36-46) L 09/06/21 09:30 Creatinine 0.78 mg/dL (0.52-1.04) 09/07/21 05:28 Lactate 1.0 mmol/L (0.7-2.1) 08/29/21 12:45 Interventions: 1. Continue current TPN schedule bumping rate to 82mL/h (goal) with lipids three times per week as tolerated. Monitoring/Evaluations: following daily Electronically Signed by: Nory Jones 09/07/21 13:48 Clinical Dietitian [address] [address]
--- NOTE | 2021-09-07 14:26 | PC.NURSE ---
Patient was caught by another nurse drinking water w/ swab at bedside. This nurse took cup of water away from patient. Patient states Busted to this nurse. This nurse explained why it is important that she adhere to the NPO orders and why we must allow rest with her GI at this time. Water was placed at the sink. Advised patient to call staff when she wishes to have a mouth swab.
[2021-09-07 15:50] VITALS: BP 134/67; PULSE 80; RESP 16; TEMP 36.4; O2SAT 96
[2021-09-07] MEDS: CALCIUM IV (18:41)
[2021-09-07] MEDS: LYTES IV (18:41)
[2021-09-07] MEDS: DEXT IV (18:41)
[2021-09-07] MEDS: TRACE ELEMENTS IV (18:41)
[2021-09-07] MEDS: [UNRECOGNIZED DRUG - OTHER] IV (18:41)
[2021-09-07] MEDS: MULTIVITAMIN IV (18:41)
[2021-09-07] MEDS: KETOROLAC 30 MG/ML VIAL IV (19:37)
[2021-09-07 21:00] VITALS: BP 115/55; PULSE 84; RESP 18; TEMP 37.1; O2SAT 95
[2021-09-07] MEDS: ENOXAPARIN 40 MG/0.4 ML SYRINGE SUBCUT (21:13)
[2021-09-08] MEDS: HYDROMORPHONE 1 MG INJ IV ×9 (00:03→22:52)
[2021-09-08 00:33] VITALS: BP 118/47; PULSE 82; RESP 18; TEMP 36.3; O2SAT 95
[2021-09-08] MEDS: KETOROLAC 30 MG/ML VIAL IV ×3 (03:21→20:14)
[2021-09-08 05:00] VITALS: BP 134/51; PULSE 87; RESP 18; TEMP 36.9; O2SAT 95
[2021-09-08 06:08] LABS: Alanine Aminotransferase 29 IU/L (<35); Albumin 2.5 g/dL (3.5-5.0); Alkaline Phosphatase 44 U/L (38-126); Aspartate Aminotransferase 27 IU/L (14-36); Bilirubin Total 0.2 mg/dL (0.2-1.3); Blood Urea Nitrogen 17 mg/dL (7-17); Calcium 7.8 mg/dL (8.4-10.2); Carbon Dioxide 30 mmol/L (22-32); Chloride 101 mmol/L (98-107); Estimated Glomerular Filt Rate > 60.0 mL/min (>60); Globulin 2.6 g/dL (1.7-4.1); Glucose 188 mg/dL (80-110); HEMOLYSIS < 15 (0-50); Magnesium 2.1 mg/dL (1.6-2.3); Phosphorous 3.1 mg/dL (2.8-4.1); Potassium 3.9 mmol/L (3.4-5.1); Sodium 133 mmol/L (137-145); Total Protein 5.1 g/dL (6.3-8.2); Triglycerides 92 mg/dL (35-150)
[2021-09-08 06:15] LABS: Prealbumin 8.8 mg/dL (17.6-36.0)
[2021-09-08] MEDS: SODIUM CHLORIDE 0.9% FLUSH 10 ML IV ×2 (08:43→20:24)
[2021-09-08 09:00] VITALS: BP 135/62; PULSE 71; RESP 16; TEMP 36.3; O2SAT 96
[2021-09-08 13:00] VITALS: BP 131/51; PULSE 75; RESP 16; TEMP 36.6; O2SAT 95
--- NOTE | 2021-09-08 13:05 | PM.PNPO.1 ---
Subjective Subjective Date Patient Seen: 09/08/21 Time Patient Seen: 13:06 Interval history: pain better controlled. No nausea tolerating sips of clears. Ostomy productive Exam Vital Signs (past 8 hours): - 09/08/21 09:00 Temperature 97.3 F L Pulse Rate 71 Respiratory Rate 16 Blood Pressure 135/62 Pulse Oximetry 96 Oxygen Delivery Method Room Air Oxygen Flow Rate 0 Narrative Exam Narrative: Gen-Elderly woman alert and oriented Abdomen-soft, midline vac dressing not attached to suction. Ostomy productive. Objective Labs Result Diagrams: 09/06/21 09:30 09/08/21 05:26 Labs: Laboratory Results - last 24 hr 09/08/21 05:26 Sodium 133 L Potassium 3.9 Chloride 101 Carbon Dioxide 30 BUN 17 Creatinine 0.63 Estimated GFR > 60.0 BUN/Creatinine Ratio 27.0 H Glucose 188 H Calcium 7.8 L Phosphorus 3.1 Magnesium 2.1 Total Bilirubin 0.2 AST 27 ALT 29 Alkaline Phosphatase 44 Total Protein 5.1 L Albumin 2.5 L Globulin 2.6 Albumin/Globulin Ratio 1.0 Prealbumin 8.8 L Triglycerides 92 PFSH Medical History Lynn's esophagus (~2011) Carpal tunnel syndrome (~2002) Chicken pox Colon polyps (~1998) Familial adenomatous polyposis (~1998) Fibroids (~1979) GERD (gastroesophageal reflux disease) (~2011) Measles Mumps Osteoarthritis (~2011) [place] spotted fever (~2019) Rosacea (~2009) Rubella Surgical History (Updated 06/09/21 @ 21:11 by Natasha Merino) Anesthesia History of colectomy (~2015) History of endoscopy (~2017) History of hysterectomy (~1991) Status post small bowel resection (~2019) Family History (Updated 06/09/21 @ 21:20 by Natasha Merino) Father Colon cancer FAP (familial adenomatous polyposis) Mother History of heart disease Mental health problem Brother History of heart disease Grandmother History of heart disease Grandfather Drowned Grandmother Cancer Family/Other FAP (familial adenomatous polyposis) Social History household members: none Smoking Status: Former smoker alcohol intake: current Assessment & Plan Post-op Postoperative Procedures: Procedures Operation Date: 08/31/21 09:45 Actual Procedure Side Surgeon p REVISION OF ILEOSTOMY Right Jg Reyes MD Operation Date: 09/06/21 13:15 Actual Procedure Side Surgeon p Resite ostomy to left lower quadrant Jg Reyes MD Postoperative status narrative: 71 F sp resiting of ostomy doing well. Ostomy productive. -Clear liquid diet then advance as tolerate -TPN -pLovenox and SCDs Quality VTE Deep Vein Thrombosis/Pulmonary Embolism Present on Admission: No
[2021-09-08 17:00] VITALS: BP 149/58; PULSE 87; RESP 16; TEMP 36.6; O2SAT 98
--- NOTE | 2021-09-08 17:31 | PC.NURSE ---
Day shift: Pt tolerating clear liquids for dinner tonight. Denies any nausea. Call light in reach. Has been calm and cooperative w/ care.
[2021-09-08] MEDS: MULTIVITAMIN IV (18:44)
[2021-09-08] MEDS: LYTES IV (18:44)
[2021-09-08] MEDS: [UNRECOGNIZED DRUG - OTHER] IV (18:44)
[2021-09-08] MEDS: TRACE ELEMENTS IV (18:44)
[2021-09-08] MEDS: CALCIUM IV (18:44)
[2021-09-08] MEDS: DEXT IV (18:44)
[2021-09-08] MEDS: ENOXAPARIN 40 MG/0.4 ML SYRINGE SUBCUT (20:15)
[2021-09-08 21:00] VITALS: BP 113/48; PULSE 71; RESP 19; TEMP 36.9; O2SAT 97
[2021-09-09] VITALS: BP 131/56; PULSE 76; RESP 18; TEMP 36.4; O2SAT 97
[2021-09-09] MEDS: HYDROMORPHONE 1 MG INJ IV ×10 (00:20→19:57)
[2021-09-09] MEDS: KETOROLAC 30 MG/ML VIAL IV ×3 (03:30→19:57)
[2021-09-09 03:45] VITALS: BP 145/63; PULSE 83; RESP 18; TEMP 36.9; O2SAT 96
[2021-09-09] MEDS: SODIUM CHLORIDE 0.9% FLUSH 10 ML IV ×7 (07:51→20:01)
[2021-09-09 08:20] VITALS: BP 134/63; PULSE 72; RESP 16; TEMP 36.2; O2SAT 98
[2021-09-09 12:18] VITALS: BP 155/70; PULSE 74; RESP 16; TEMP 36.5; O2SAT 98
--- NOTE | 2021-09-09 16:22 | P.PN_ITS ---
Subjective Subjective Date Patient Seen: 09/09/21 Time Patient Seen: 16:22 Interval history: Feelings slightly better but still having waves of pain predominantly left lower quadrant. She has had some stool output into her ileostomy as well as flatus. She has tolerated clear liquid diet but does not have much of an appetite yet. Exam Vital Signs (past 8 hours): - 09/09/21 12:18 Temperature 97.7 F Pulse Rate 74 Respiratory Rate 16 Blood Pressure 155/70 H Pulse Oximetry 98 Oxygen Delivery Method Room Air Oxygen Flow Rate 0 Narrative Exam Narrative: Ileostomy is well perfused with stool output Right lower quadrant old ileostomy wound dressings changed with no signs of infection The midline negative pressure dressing has lost its seal but remains in place as a wound cover The pelvic drain is serosanguineous Objective Labs Result Diagrams: 09/06/21 09:30 09/08/21 05:26 [facility] Medical History Lynn's esophagus (~2011) Carpal tunnel syndrome (~2002) Chicken pox Colon polyps (~1998) Familial adenomatous polyposis (~1998) Fibroids (~1979) GERD (gastroesophageal reflux disease) (~2011) Measles Mumps Osteoarthritis (~2011) [place] spotted fever (~2019) Rosacea (~2009) Rubella Surgical History (Updated 06/09/21 @ 21:11 by Natasha Merino) Anesthesia History of colectomy (~2015) History of endoscopy (~2017) History of hysterectomy (~1991) Status post small bowel resection (~2019) Family History (Updated 06/09/21 @ 21:20 by Natasha Merino) Father Colon cancer FAP (familial adenomatous polyposis) Mother History of heart disease Mental health problem Brother History of heart disease Grandmother History of heart disease Grandfather Drowned Grandmother Cancer Family/Other FAP (familial adenomatous polyposis) Social History household members: none Smoking Status: Former smoker alcohol intake: current Assessment & Plan Assessment and plan (1) Postoperative examination: Status: Acute Plan Postoperative day 3 from exploratory laparotomy with reciting of ileostomy Doing well and having bowel function Will advance diet to regular although she may not have much of an appetite yet. DC pelvic drain Change right lower quadrant old ileostomy dressings daily with dry gauze Will start the process of discharge planning as she may be able to be discharged in 2-3 days. She is currently living in an which is in [facility] Time Spent With Patient Critical Care time: I spent a total of [] minutes of critical care time on this patient's care today; this time is exclusive of procedural time. Quality VTE Deep Vein Thrombosis/Pulmonary Embolism Present on Admission: No
--- NOTE | 2021-09-09 16:22 | DIET.PN1 ---
Dietary Progress Note RD Note: Pt currently tolerating TPN running at goal rate (2L Clinimix 02/25) as well as tolerating clear liquid diet with output from ileostomy. Pt came to hospital with ileostomy so does not need new ostomy teaching. Ht: 167.64 cm Wt: 78.5 kg BMI: 27.9 Last BM: 09/04/21 (09/06/21 12:58) MNA: 14 Jorge Score: 19 Diet: 09/08/21 Dinner Clear Liquid Diet Diet Modifications: Labs: RBC 3.59 X10^6/uL (4.0-5.2) L 09/06/21 09:30 Hgb 11.5 g/dL (12.0-16.0) L 09/06/21 09:30 Hct 33.8 % (36-46) L 09/06/21 09:30 Creatinine 0.63 mg/dL (0.52-1.04) 09/08/21 05:26 Lactate 1.0 mmol/L (0.7-2.1) 08/29/21 12:45 Nutrition Diagnosis: resolving inadequate protein calorie intake Interventions: 1.Pt safe for TPN taper when tolerating full liquid diet as this diet provides adequate protein and energy intake and acceptable diet for new ileostomy. EER: 1950 kcal (25kcal/kg), 95g PRO (1.2g/kg per postsurgical healing) Monitoring/Evaluations: diet advancement Electronically Signed by: Nory Jones 09/09/21 16:22 Clinical Dietitian [address] [address]
[2021-09-09 16:47] VITALS: BP 153/68; PULSE 77; RESP 16; TEMP 36.4; O2SAT 98
[2021-09-09] MEDS: OXYCODONE/ACETAMINOPHEN 5/325 TABLET 1 TAB PO ×2 (18:37→22:12)
[2021-09-09] MEDS: ENOXAPARIN 40 MG/0.4 ML SYRINGE SUBCUT (20:01)
[2021-09-10] VITALS: BP 137/61; PULSE 70; RESP 14; TEMP 36.5; O2SAT 98
[2021-09-10] MEDS: OXYCODONE/ACETAMINOPHEN 5/325 TABLET 1 TAB PO ×5 (02:26→22:20)
[2021-09-10] MEDS: KETOROLAC 30 MG/ML VIAL IV ×3 (03:35→20:10)
[2021-09-10 07:00] VITALS: BP 139/82; PULSE 84; RESP 14; TEMP 36.9; O2SAT 93
[2021-09-10] MEDS: TAMSULOSIN 0.4 MG CAPSULE PO (08:49)
[2021-09-10] MEDS: SODIUM CHLORIDE 0.9% FLUSH 10 ML IV ×4 (08:50→21:32)
[2021-09-10 09:00] VITALS: BP 139/82; PULSE 84; RESP 15; TEMP 36.2; O2SAT 97
--- NOTE | 2021-09-10 14:54 | OT.IP.EVAL ---
Current Diagnoses Unspecified intestinal obstruction, unspecified as to partial versus complete obstruction (08/29/21) Encounter for follow-up examination after completed treatment for conditions other than malignant neoplasm (08/29/21) Surgery Performed Operation Date: 08/31/21 09:45 Actual Procedures p REVISION OF ILEOSTOMY(Right) - Jg Reyes MD Operation Date: 09/06/21 13:15 Actual Procedures p Resite ostomy to left lower quadrant - Jg Reyes MD Past Medical History (Last Reviewed 08/29/21 @ 13:48 by Ruben Boggs DO) Lynn's esophagus (~2011) Carpal tunnel syndrome (~2002) Chicken pox Colon polyps (~1998) Familial adenomatous polyposis (~1998) Fibroids (~1979) GERD (gastroesophageal reflux disease) (~2011) History of colectomy (~2015) History of endoscopy (~2017) History of hysterectomy (~1991) Measles Mumps Osteoarthritis (~2011) [place] spotted fever (~2019) Rosacea (~2009) Rubella Status post small bowel resection (~2019) Surgical History (Last Updated 06/09/21 @ 21:11 by Natasha Merino) Anesthesia History of colectomy (~2015) History of endoscopy (~2017) History of hysterectomy (~1991) Status post small bowel resection (~2019) Occupational Therapy Inpatient Evaluation/Re-Eval M2 OT-IP Current Condition Start: 09/10/21 15:17 Freq: Status: Active Protocol: Document 09/10/21 15:18 [facility] (Rec: 09/10/21 15:36 [facility] [id number]) Occupational Therapy Current Condition Current Condition Evaluation Date 09/10/21 Treatment Diagnosis SBO, s/p exploratory laprotomy w/ reciting of ileostomy, decreased mobility Diagnosis Onset Date 08/29/21 Post Operative Precautions Abdominal Surgery Precautions Log Roll,Lifting Restrictions, Gait Belt above Incisional Area M3 OT- IP Subjective and Pain Start: 09/10/21 15:17 Freq: Status: Active Protocol: Document 09/10/21 15:18 [facility] (Rec: 09/10/21 15:36 [facility] [id number]) OT- Subjective Occupational Therapy Visit Type Type Initial Evaluation Visit Start Time 14:20 Visit Stop Time 14:54 Total Visit Minutes 34 Occupational Therapy Visit Comments Patient Comments Pt agreed to get up for OT eval. Patient/Caregiver Goals To go to her friend's house. OT Pain Assessment Pain When Pain Assessed At Rest Pain Present Pain Present Pain Reported Location Abdomen Intensity 5 Scale Used Numeric (0 - 10) M4 OT- IP ADL's Start: 09/10/21 15:17 Freq: Status: Active Protocol: Document 09/10/21 15:18 [facility] (Rec: 09/10/21 15:36 [facility] [id number]) OT [id number] Comments OT Self-Feeding Comments NOt at meal time. OT ADL-Grooming Comments OT Grooming Comments Pt too tired to attempt at this time. OT ADL-Oral Care Comments Oral Care Comments Not performed. OT ADL-Dressing General Eval Lower Body Dressing Ability Standby Assistance Areas Needing Assistance Socks Comments OT Dressing Comments Pt able to comfortable cross her legs to mireille/doff her socks while seated on the edge of the bed. OT ADL-Toileting General Evaluation Toileting Ability Total Assistance Comments OT Toileting Comments Melara in place. OT ADL-Bathing Comments OT Bathing Comments Not performed, pt too tired. M5 OT- IP IADL's Start: 09/10/21 15:17 Freq: Status: Active Protocol: Document 09/10/21 15:18 [facility] (Rec: 09/10/21 15:36 [facility] [id number]) OT-Instrumental Activities of Daily Living Deficits IADL Deficits Identified Deficits Home Safety Awareness Awareness of Need for Assistance at Home Good Awareness Ability to Problem Solve Emergency Able to Problem Solve Situations M6 OT- IP Functional Cognition Start: 09/10/21 15:17 Freq: Status: Active Protocol: Document 09/10/21 15:18 [facility] (Rec: 09/10/21 15:36 [facility] [id number]) Cognitive Factors Limiting Selfcare Function Cognitive Ability Level of Alertness Alert Patient Orientation Name,Place,Situation Attention Span Ability Capable of Focused Attention, Capable of Sustained Attention Ability to Follow Commands Able to Follow One Step Commands Safety Awareness Decreased Ability to Apply Precautions,Underestimates Need for Assistance Cognitive Comments Cognitive Assessment Comments Pt needing cues to follow her abdominal precautions. Pt a little groggy from her pain medications. OT- Vision and Hearing OT- Hearing Assessment OT- Hearing Assessment WFL OT- Vision Assessment Vision Assessment Comments Glasses for driving. M7 OT- IP Mobility and Balance Start: 09/10/21 15:17 Freq: Status: Active Protocol: Document 09/10/21 15:18 [facility] (Rec: 09/10/21 15:36 [facility] [id number]) OT- Bed Mobility Assessment Rolling Type of Rolling Roll to Right Level of Assistance Standby Assistance OT-Transfer Assessment Sit to and From Stand Sit to and from Stand Contact Guard Assistance Transfers Transfer Ability Contact Guard Assistance Technique Transfer Destination Bed,Chair Transfer Technique Stand Step Pivot Devices Transfer Assistive Devices Gait Belt,Front Wheeled Walker Comments Mobility Comments Pt a little unsteady on her feet and needing CGA for balance with use of FWW to get to the recliner. OT- Balance Assessment Sitting Balance and Reactions Static Sitting Balance Ability Good Dynamic Sitting Balance Ability Good Standing Balance and Reactions Static Standing Balance Ability Fair M9 OT- IP Assessment and Plan Start: 09/10/21 15:17 Freq: Status: Active Protocol: Document 09/10/21 15:18 [facility] (Rec: 09/10/21 15:36 [facility] [id number]) OT Summary Assessment and Plan Potential Rehabilitation Potential Good Analytic Complexity at Evaluation Moderate Summary OT Impairments Pain,Balance,Functional Mobility,Dressing,Toileting, Bathing,Toilet Transfers, Shower Transfers,Activity Tolerance Progress Towards Goals Slow Progress due to Pain,Slow Progress due to Medical Issues,Slow Progress due to Activity Tolerance Assessment Summary Pt Mod complexity and main barriers are decreased activity tolerance and now needing some assist for ADL and mobility needs. Pt now having to use the FWW to transfer. Pt states to go to her friend's home. but her friend may not be home/ available to assist. At this time pt would benefit from 24/ 7 available assist at home or consider going to skilled rehab for short stay. Goals Grooming Goal Independent Dressing Goal Independent Toileting Goal Independent Bathing Goal Independent Toilet Transfer Goal Independent Shower Transfer Goal Independent Patient/Caregiver Education Goal Demonstrate Post-Op Precautions Days to Meet Goals 10 Frequency of Treatment Frequency Of Treatment Once a Day Treatment Plan OT Treatment Plan ADL Training,Functional Cognition Training,Functional Mobility,Patient/Family Education,Discharge Planning Other Treatment Recommendations and Next Stand at sink for grooming Treatment Focus needs. Discharge Recommendations OT Discharge Recommendations Home with 24/7 Assist Available,SNF Rehab,Home vs SNF Other Discharge Recommendations Pending progress and assist at her friend's house. Home Equipment Needs Shower chair,bedrail, bsc, shower chair Transportation Needs at Discharge Private Vehicle,Wheelchair/ Cabulance
--- NOTE | 2021-09-10 14:55 | PT.IIE ---
Current Diagnoses Unspecified intestinal obstruction, unspecified as to partial versus complete obstruction (08/29/21) Encounter for follow-up examination after completed treatment for conditions other than malignant neoplasm (08/29/21) Surgery Performed Operation Date: 08/31/21 09:45 Actual Procedures p REVISION OF ILEOSTOMY(Right) - Jg Reyes MD Operation Date: 09/06/21 13:15 Actual Procedures p Resite ostomy to left lower quadrant - Jg Reyes MD Surgical History (Last Updated 06/09/21 @ 21:11 by Natasha Merino) Anesthesia Medical History (Last Reviewed 08/29/21 @ 13:48 by Ruben Boggs DO) Lynn's esophagus (~2011) Carpal tunnel syndrome (~2002) Chicken pox Colon polyps (~1998) Familial adenomatous polyposis (~1998) Fibroids (~1979) GERD (gastroesophageal reflux disease) (~2011) Measles Mumps Osteoarthritis (~2011) [place] spotted fever (~2019) Rosacea (~2009) Rubella Physical Therapy Inpatient Evaluation/Re-Eval M1 PT/OT-IP Prior Functional Status Start: 09/10/21 15:28 Freq: NEEDED Status: Active Protocol: Document 09/10/21 14:55 [facility] (Rec: 09/10/21 15:59 AB [id number]) Medical Review Prior Functional Status Medical History Reviewed Yes Communication able to make needs known Mobility and Gait pt stated that she is independent with all mobilities and ambulation without AD but uses a walking stick for hiking due to her knee problem Social History Household Members none Living Arrangements House Number of Floors (Floors) One Floor Number of Stairs To Enter/Railing? 4 steps R rail ascending Home Environment Standard Height Toilet,Walk in Shower Home Equipment Hand Held Shower Additional Social History Comment pt lives alone and lives on an RV. pt plans to stay at her friend's house and info above is regarding friend's house. pt's friend works time signal wirer and can only assist pt when at home. pt stated that another friend might be able to assist her but is not definite M2 PT-IP Current Condition Start: 09/10/21 15:28 Freq: NEEDED Status: Active Protocol: Document 09/10/21 14:55 [facility] (Rec: 09/10/21 15:59 AB [id number]) Physical Therapy Current Condition Current Condition Evaluation Date 09/10/21 Treatment Diagnosis SBO s/p ileostomy revision and ex lap; difficulty in walking Onset Date 08/29/21 M3 PT-IP Subjective Start: 09/10/21 15:28 Freq: NEEDED Status: Active Protocol: Document 09/10/21 14:55 [facility] (Rec: 09/10/21 15:59 AB [id number]) Subjective Physical Therapy Visit Type Type Initial Evaluation Visit Start Time 14:55 Visit Stop Time 15:25 Total Visit Minutes 30 Number of GANG SUPERVISOR Visits 0 Physical Therapy Visit Comments Patient Comments pt is agreeable to do PT Therapy Pain Assessment Pain When Pain Assessed At Rest Pain Present Pain Present Pain Reported Location Abdomen Intensity 5 Scale Used Numeric (0 - 10) Pain Management Techniques Distraction,Modification of Treatment,Re-positioning, Timing of Activity with Medications M4 PT-IP Mobility and Gait Start: 09/10/21 15:28 Freq: NEEDED Status: Active Protocol: Document 09/10/21 14:55 AB (Rec: 09/10/21 15:59 AB [id number]) PT-Bed Mobility Assessment Rolling Type of Rolling Log Rolling Level of Assist Moderate Assistance Supine to Sit Supine to Sit Moderate Assistance,Maximum Assistance Sit to Supine Sit to Supine Minimal Assistance Scooting Scooting to Edge of Bed Standby Assistance PT-Transfer Assessment Sit to and From Stand Sit to and from Stand Moderate Assistance,Maximum Assistance,1 Person Assistance ,Use of Upper Extremities Equipment Transfer Assistive Device Gait Belt,Front Wheeled Walker Orthotic/Prosthetic Devices or Brace: No Transfers Transfer Destination Bed,Chair Transfer Technique Stand Step Pivot Transfer Ability Level of Assist Moderate Assistance,1 Person Assistance,Use of Upper Extremities Comments Mobility Comments pt sitting on chair. pt just finished with OT but agreed to do PT. educated pt on abdominal precautions and log roll bed mobility. completed sit to stand from chair mod to max A and max cues. pt with difficulty standing upright and c/o abdominal pain. completed step transfer to bed using fWW mod to max A and cues. completed sit to supine min A and cues. completed supine to sit mod to max A and max cues. required rest breaks in between tasks. pt requested to just get back on chair and refused ambulation. stated that she is just tired but willing to ambulate tomorrow. pt completed sit to stand from bed mod to max A and step transfer to chair using fWW mod to max A and cues. positioned pt on chair. call light and table placed within reach. PT-Balance Assessment Sitting Balance and Reactions Static Sitting Balance Ability Good Dynamic Sitting Balance Ability Good Standing Balance and Reactions Static Standing Balance Ability Fair Dynamic Standing Balance Ability Fair Device Used FWW M5 PT-IP Objective Assessments Start: 09/10/21 15:28 Freq: NEEDED Status: Active Protocol: Document 09/10/21 14:55 [facility] (Rec: 09/10/21 15:59 AB [id number]) Orientation Orientation/Cognition Level of Alertness Alert Orientation Name,Place,Situation Safety Awareness Understands Safety Issues Memory Description No Deficits Noted Gross Range of Motion Lower Extremity ROM Assessment Within Functional Limits Strength Lower Extremity Strength Hip 4-/5 Knee 4/5 Coordination Assessment Gross Coordination Gross Coordination WNL Sensation Assessment Sensation Gross Sensation WNL Muscle Tone Muscle Tone WNL Yes M6 PT-IP Treatment Start: 09/10/21 15:28 Freq: NEEDED Status: Active Protocol: Document 09/10/21 14:55 AB (Rec: 09/10/21 15:59 AB [id number]) Physical Therapy Treatment Education Education Provided Precautions,Safety M7 PT-IP Assessment and Plan Start: 09/10/21 15:28 Freq: NEEDED Status: Active Protocol: Document 09/10/21 14:55 [facility] (Rec: 09/10/21 15:59 AB [id number]) PT Summary Assessment and Plan Potential Rehabilitation Potential Good Status of Condition at Evaluation Evolving Summary Impairments Pain,ROM,Strength,Balance, Coordination,Bed Mobility, Transfers,Gait,Activity Tolerance Assessment Summary pt requiring mod to max A with transfers using FWW and has difficulty standing upright with c/o increase abdominal pain. unable to tolerate much activity and unable to ambulate to day. will continue to assess progress. pt plans to go home to her friend's house but will not have consistent assistance. pt will require services. Goals Bed Mobility Goal Independent Transfer Goal Independent,Front Wheeled Walker Gait Goal Independent,Front Wheel Walker Gait Distance 200 Other Goals up/down 4 steps R rail ascending SBA improve ambulation without AD 300 ft SBA Days to Meet Goals 10 Frequency of Treatment Frequency Of Treatment Once a Day Treatment Plan Physical Therapy Treatment Plan Bed Mobility Training,Transfer Training,Gait Training, Therapeutic Exercise,Balance Retraining,Post Op Education, Discharge Planning,Hot or Cold Pack,Neuromuscular Re-ed, Coordination Retraining,Manual Therapy Precautions Abdominal Surgery Precautions Log Roll,Lifting Restrictions, Gait Belt above Incisional Area Recommendations To Nursing Amount of Assist Needed 1 Person Assist Discharge Recommendations PT Discharge Recommendations Home with Assistance,Home Health Equipment Needed for Home Before FWW Discharge Transportation Needs at Discharge Private Vehicle
[2021-09-10] MEDS: HYDROMORPHONE 1 MG INJ IV ×2 (16:44→21:31)
[2021-09-10 17:27] VITALS: BP 133/63; PULSE 70; RESP 16; TEMP 36.4; O2SAT 96
[2021-09-10 19:43] VITALS: BP 126/53; PULSE 87; RESP 16; TEMP 37; O2SAT 96
--- NOTE | 2021-09-10 19:49 | PC.NURSE ---
Drsg changed today at 1800 per MD orders. Pt tolerated well.
[2021-09-10] MEDS: ENOXAPARIN 40 MG/0.4 ML SYRINGE SUBCUT (20:10)
[2021-09-11 01:00] VITALS: RESP 16
[2021-09-11] MEDS: OXYCODONE/ACETAMINOPHEN 5/325 TABLET 1 TAB PO ×3 (02:55→13:30)
[2021-09-11] MEDS: KETOROLAC 30 MG/ML VIAL IV (04:48)
[2021-09-11 05:41] VITALS: BP 133/58; PULSE 74; RESP 16; TEMP 36.6; O2SAT 94
--- NOTE | 2021-09-11 08:25 | P.PN_ITS ---
Subjective Subjective Date Patient Seen: 09/11/21 Time Patient Seen: 08:25 Interval history: Feels ok, has urinary retention issues after surgeries. Feels weak. Exam Vital Signs (past 8 hours): - 09/11/21 01:00 09/11/21 05:41 Temperature 97.9 F Pulse Rate 74 Respiratory Rate 16 16 Blood Pressure 133/58 L Pulse Oximetry 94 Oxygen Delivery Method Room Air Oxygen Flow Rate 0 Narrative Exam Narrative: s/p ileostomy revision x2. Stoma is healthy and functioning. Melara in place. Abdomen is soft with incisional tenderness. Objective Labs Result Diagrams: 09/06/21 09:30 09/08/21 05:26 [facility] Medical History Lynn's esophagus (~2011) Carpal tunnel syndrome (~2002) Chicken pox Colon polyps (~1998) Familial adenomatous polyposis (~1998) Fibroids (~1979) GERD (gastroesophageal reflux disease) (~2011) Measles Mumps Osteoarthritis (~2011) [place] spotted fever (~2019) Rosacea (~2009) Rubella Surgical History (Updated 06/09/21 @ 21:11 by Natasha Merino) Anesthesia History of colectomy (~2015) History of endoscopy (~2017) History of hysterectomy (~1991) Status post small bowel resection (~2019) Family History (Updated 06/09/21 @ 21:20 by Natasha Merino) Father Colon cancer FAP (familial adenomatous polyposis) Mother History of heart disease Mental health problem Brother History of heart disease Grandmother History of heart disease Grandfather Drowned Grandmother Cancer Family/Other FAP (familial adenomatous polyposis) Social History household members: none Smoking Status: Former smoker alcohol intake: current Assessment & Plan Post-op Postoperative Procedures: Procedures Operation Date: 08/31/21 09:45 Actual Procedure Side Surgeon p REVISION OF ILEOSTOMY Right Jg Reyes MD Operation Date: 09/06/21 13:15 Actual Procedure Side Surgeon p Resite ostomy to left lower quadrant Jg Reyes MD Postoperative status: doing well Postoperative status narrative: No complications. GI function returning. Postoperative plan narrative: Plan: continue PT with goal of being able to be alone for 8 hrs during the day. She lives in RV, but will be staying with friends in [place] when she leaves. Saritha will be removed tomorrow in anticipation of discharge Monday or Monday. Quality VTE Deep Vein Thrombosis/Pulmonary Embolism Present on Admission: No
--- NOTE | 2021-09-11 09:10 | OT.IP.TRT ---
Current Diagnoses Unspecified intestinal obstruction, unspecified as to partial versus complete obstruction (08/29/21) Encounter for follow-up examination after completed treatment for conditions other than malignant neoplasm (08/29/21) Surgery Performed Operation Date: 08/31/21 09:45 Actual Procedures p REVISION OF ILEOSTOMY(Right) - Jg Reyes MD Operation Date: 09/06/21 13:15 Actual Procedures p Resite ostomy to left lower quadrant - Jg Reyes MD Occupational Therapy Treatment Note M2 OT-IP Current Condition Start: 09/10/21 15:17 Freq: Status: Active Protocol: Document 09/10/21 15:18 [facility] (Rec: 09/10/21 15:36 [facility] [id number]) Occupational Therapy Current Condition Current Condition Evaluation Date 09/10/21 Treatment Diagnosis SBO, s/p exploratory laprotomy w/ reciting of ileostomy, decreased mobility Diagnosis Onset Date 08/29/21 Post Operative Precautions Abdominal Surgery Precautions Log Roll,Lifting Restrictions, Gait Belt above Incisional Area M3 OT- IP Subjective and Pain Start: 09/10/21 15:17 Freq: Status: Active Protocol: Document 09/11/21 09:15 [facility] (Rec: 09/11/21 09:20 [facility] [id number]) OT- Subjective Occupational Therapy Visit Type Type Treatment Note Visit Start Time 08:50 Visit Stop Time 09:15 Total Visit Minutes 25 Occupational Therapy Visit Comments Patient Comments Pt agreed to get up from the bed to the recliner so able to eat breakfast. Patient/Caregiver Goals Pt now realizes may be too much for her to go to her friend's home that can not be home to assist her at all times and open to going to skilled rehab. OT Pain Assessment Pain When Pain Assessed At Rest Pain Present Pain Present Pain Reported Location Abdomen Intensity 6 Scale Used Numeric (0 - 10) M5 OT- IP IADL's Start: 09/10/21 15:17 Freq: Status: Active Protocol: Document 09/10/21 15:18 [facility] (Rec: 09/10/21 15:36 [facility] [id number]) OT-Instrumental Activities of Daily Living Deficits IADL Deficits Identified Deficits Home Safety Awareness Awareness of Need for Assistance at Home Good Awareness Ability to Problem Solve Emergency Able to Problem Solve Situations M6 OT- IP Functional Cognition Start: 09/10/21 15:17 Freq: Status: Active Protocol: Document 09/11/21 09:15 [facility] (Rec: 09/11/21 09:20 [facility] [id number]) Cognitive Factors Limiting Selfcare Function Cognitive Comments Cognitive Assessment Comments Pt is cognitively intact. Pt states concerned that she is not getting her pain medications at night as she is sleeping. Suggested to ask the nursing aids to wake her up at night so able to request her pain medications as needed. M7 OT- IP Mobility and Balance Start: 09/10/21 15:17 Freq: Status: Active Protocol: Document 09/11/21 09:15 [facility] (Rec: 09/11/21 09:20 [facility] [id number]) OT- Bed Mobility Assessment Rolling Type of Rolling Roll to Right Level of Assistance Standby Assistance OT-Transfer Assessment Sit to and From Stand Sit to and from Stand Moderate Assistance Transfers Transfer Ability Minimal Assistance,Moderate Assistance Technique Transfer Destination Bed,Chair Transfer Technique Stand Step Pivot Devices Transfer Assistive Devices Gait Belt,Front Wheeled Walker Comments Mobility Comments MODA to assist to stand and pt wanting to push up on the FWW to stand versus have at least one hand on the bed to stand. MIN/MODA for the transfer for balance and guidance of FWW. Pt moving very slowly and heavy use of her arms on the FWW. OT- Balance Assessment Sitting Balance and Reactions Static Sitting Balance Ability Good Dynamic Sitting Balance Ability Fair Standing Balance and Reactions Static Standing Balance Ability Poor M9 OT- IP Assessment and Plan Start: 09/10/21 15:17 Freq: Status: Active Protocol: Document 09/11/21 09:15 [facility] (Rec: 09/11/21 09:20 [facility] [id number]) OT Summary Assessment and Plan Potential Rehabilitation Potential Good Analytic Complexity at Evaluation Moderate Summary OT Impairments Pain,Balance,Functional Mobility,Dressing,Toileting, Bathing,Toilet Transfers, Shower Transfers,Activity Tolerance Progress Towards Goals Slow Progress due to Pain,Slow Progress due to Medical Issues,Slow Progress due to Activity Tolerance Goals Grooming Goal Independent Dressing Goal Independent Toileting Goal Independent Bathing Goal Independent Toilet Transfer Goal Independent Shower Transfer Goal Independent Patient/Caregiver Education Goal Demonstrate Post-Op Precautions Days to Meet Goals 25 Frequency of Treatment Frequency Of Treatment Once a Day Treatment Plan OT Treatment Plan ADL Training,Functional Mobility,Patient/Family Education,Discharge Planning Discharge Recommendations OT Discharge Recommendations SNF Rehab Home Equipment Needs Shower chair,bedrail, bsc, shower chair Transportation Needs at Discharge Wheelchair/Cabulance
[2021-09-11] MEDS: TAMSULOSIN 0.4 MG CAPSULE PO (09:21)
[2021-09-11] MEDS: SODIUM CHLORIDE 0.9% FLUSH 10 ML IV ×3 (09:21→19:56)
[2021-09-11] MEDS: HYDROMORPHONE 1 MG INJ IV ×3 (10:02→21:53)
[2021-09-11 11:50] VITALS: BP 123/64; PULSE 80; RESP 16; TEMP 36.6; O2SAT 100
--- NOTE | 2021-09-11 14:15 | CM.DPNOTE ---
DCP Update Therapy team recommending SNF and patient agreeable; sent referral to [facility]. Awaiting review and decision PASRR completed in anticipation for SNF JW
--- NOTE | 2021-09-11 14:41 | PT.IPTN ---
Current Diagnoses Unspecified intestinal obstruction, unspecified as to partial versus complete obstruction (08/29/21) Encounter for follow-up examination after completed treatment for conditions other than malignant neoplasm (08/29/21) Surgery Performed Operation Date: 08/31/21 09:45 Actual Procedures p REVISION OF ILEOSTOMY(Right) - Jg Reyes MD Operation Date: 09/06/21 13:15 Actual Procedures p Resite ostomy to left lower quadrant - Jg Reyes MD Physical Therapy Treatment Note M2 PT-IP Current Condition Start: 09/10/21 15:28 Freq: NEEDED Status: Active Protocol: Document 09/10/21 14:55 AB (Rec: 09/10/21 15:59 AB [id number]) Physical Therapy Current Condition Current Condition Evaluation Date 09/10/21 Treatment Diagnosis SBO s/p ileostomy revision and ex lap; difficulty in walking Onset Date 08/29/21 M3 PT-IP Subjective Start: 09/10/21 15:28 Freq: NEEDED Status: Active Protocol: Document 09/11/21 14:41 RBD (Rec: 09/11/21 15:39 RBD [id number]) Subjective Physical Therapy Visit Type Type Treatment Note Visit Start Time 14:28 Visit Stop Time 14:41 Total Visit Minutes 13 Number of MEDICAL ACCOUNTING CLERK Visits 1 Physical Therapy Visit Comments Patient Comments pt is agreeable to do PT Therapy Pain Assessment Pain When Pain Assessed During Mobility Pain Present Pain Present Pain Reported Location Abdomen Scale Used No numerical value given Pain Management Techniques Distraction,Modification of Treatment,Re-positioning, Timing of Activity with Medications M4 PT-IP Mobility and Gait Start: 09/10/21 15:28 Freq: NEEDED Status: Active Protocol: Document 09/11/21 14:41 RBD (Rec: 09/11/21 15:39 RBD [id number]) PT-Transfer Assessment Sit to and From Stand Sit to and from Stand Moderate Assistance,1 Person Assistance,Use of Upper Extremities Equipment Transfer Assistive Device Gait Belt,Front Wheeled Walker Orthotic/Prosthetic Devices or Brace: No Transfers Transfer Destination Bed,Bedside Commode Transfer Technique Ambulation Transfer Ability Level of Assist Moderate Assistance,1 Person Assistance,Use of Upper Extremities Comments Mobility Comments Pt sitting in chair upon arrival. Completed sit<>stand w/ FWW Mod A. Verbilized increase in abdominal pain during sit<>stand, however, reduced following short rest while standing. Pt ambulated ~ 16 ft around room. Stand <> sit Mod A onto bedside commode in shower. Pt left w/ CONSULTING PSYCHOLOGIST for shower. Gait Assessment Gait Gait Assistance Required: Minimum Assistance,1 Person Assist Distance (Feet) 16 Able to Maintain Weight Bearing Status Yes During Gait Assistive Devices Assistive Device Gait Belt,Front Wheeled Walker Orthotic/Prosthetic Devices or Brace: No Gait Deviations General Gait Pattern Decreased Stride Length, Decreased Feet Clearance, Flexed Trunk,Narrow Based Gait Factors Limiting Gait Function Factors Limiting Gait Function Abnormal Tonal Influences, Decreased Activity Tolerance, Decreased Strength Comments Gait Comments Pt able to ambulate around room w/FWW Min A and cues for FWW management. Denied abdominal pain duing ambulation. PT-Balance Assessment Sitting Balance and Reactions Static Sitting Balance Ability Good Dynamic Sitting Balance Ability Good Standing Balance and Reactions Static Standing Balance Ability Good Dynamic Standing Balance Ability Fair Device Used FWW M5 PT-IP Objective Assessments Start: 09/10/21 15:28 Freq: NEEDED Status: Active Protocol: Document 09/10/21 14:55 AB (Rec: 09/10/21 15:59 AB [id number]) Orientation Orientation/Cognition Level of Alertness Alert Orientation Name,Place,Situation Safety Awareness Understands Safety Issues Memory Description No Deficits Noted Gross Range of Motion Lower Extremity ROM Assessment Within Functional Limits Strength Lower Extremity Strength Hip 4-/5 Knee 4/5 Coordination Assessment Gross Coordination Gross Coordination WNL Sensation Assessment Sensation Gross Sensation WNL Muscle Tone Muscle Tone WNL Yes M6 PT-IP Treatment Start: 09/10/21 15:28 Freq: NEEDED Status: Active Protocol: Document 09/11/21 14:41 RBD (Rec: 09/11/21 15:39 RBD [id number]) Physical Therapy Treatment Education Education Provided Precautions,Safety M7 PT-IP Assessment and Plan Start: 09/10/21 15:28 Freq: NEEDED Status: Active Protocol: Document 09/11/21 14:41 RBD (Rec: 09/11/21 15:39 RBD [id number]) PT Summary Assessment and Plan Potential Rehabilitation Potential Good Status of Condition at Evaluation Evolving Summary Impairments Pain,ROM,Strength,Balance, Coordination,Bed Mobility, Transfers,Gait,Activity Tolerance Progress Towards Goals Slow Progress due to Pain,Slow Progress due to Medical Issues Assessment Summary Pt continues to have increase in abdominal pain upon starting sit <> stand. Pain reduced following brief rest. Denies abdominal pain during ambulation. Pt would benifit from services to progress strength and endurance for ADLs. Goals Bed Mobility Goal Independent Transfer Goal Independent,Front Wheeled Walker Gait Goal Independent,Front Wheel Walker Gait Distance 200 Other Goals up/down 4 steps R rail ascending SBA improve ambulation without AD 300 ft SBA Days to Meet Goals 10 Frequency of Treatment Frequency Of Treatment Once a Day Treatment Plan Physical Therapy Treatment Plan Bed Mobility Training,Transfer Training,Gait Training, Therapeutic Exercise,Balance Retraining,Post Op Education, Discharge Planning,Hot or Cold Pack,Neuromuscular Re-ed, Coordination Retraining,Manual Therapy Other Recommendations and Next Treatment will plan to increase Focus ambulation distance and trial stairs when appropriate. Precautions Abdominal Surgery Precautions Log Roll,Lifting Restrictions, Gait Belt above Incisional Area Recommendations To Nursing Amount of Assist Needed 1 Person Assist Discharge Recommendations PT Discharge Recommendations Home with Assistance,Home Health Equipment Needed for Home Before FWW Discharge Transportation Needs at Discharge Private Vehicle
[2021-09-11 15:30] VITALS: BP 142/65; PULSE 84; RESP 16; TEMP 36.3; O2SAT 100
[2021-09-11] MEDS: HYDROMORPHONE 4 MG TABLET PO ×3 (15:48→23:56)
--- NOTE | 2021-09-11 17:34 | PC.NURSE ---
Called Dr. Fletcher to report Percocet not effective for pain management. Changed Analgesics to Dilaudid 4 mg PO q 4 hrs. Drsg changed with dry gauze per MD orders.
[2021-09-11] MEDS: ACETAMINOPHEN 325 MG TABLET 650 MG PO ×2 (18:13→23:56)
[2021-09-11] MEDS: ENOXAPARIN 40 MG/0.4 ML SYRINGE SUBCUT (20:11)
[2021-09-11 20:37] VITALS: BP 137/57; PULSE 75; RESP 16; TEMP 36.9; O2SAT 98
[2021-09-11] MEDS: LORazepam 2 MG/ML INJ 0.5 MG IV (21:53)
[2021-09-11 23:48] VITALS: BP 121/55; PULSE 80; RESP 18; TEMP 37.9; O2SAT 97
[2021-09-12] VITALS (8 sets, daily range): BP systolic 119–156; BP diastolic 44–71; PULSE 68–109; RESP 16–18; TEMP 36.4–38.6; O2SAT 94–99
[2021-09-12] MEDS: HYDROMORPHONE 4 MG TABLET PO ×2 (04:07→08:36)
[2021-09-12] MEDS: ACETAMINOPHEN 325 MG TABLET 650 MG PO ×4 (05:16→23:20)
--- NOTE | 2021-09-12 05:29 | PC.NURSE ---
Pt ileostomy bag had some leakage that went into the incision dressing, Pt had midline abdominal dressing change and now incision is open to air. Dressing to old ileostomy changed. New ileostomy appliance changed too. Pt continues to have difficulty with pain control. Tonight she received a dose of IVP dilaudid/ativan. will continue to monitor.
[2021-09-12] MEDS: SODIUM CHLORIDE 0.9% FLUSH 10 ML IV ×3 (08:39→23:52)
[2021-09-12] MEDS: TAMSULOSIN 0.4 MG CAPSULE PO (08:41)
--- NOTE | 2021-09-12 09:06 | CM.DPC ---
DCP SNF Planning Per Surgeon, pt continues to progress but with some pain managment issues. Discontinued dejesus in anticipation of likely d/c Mon or Tu. Per PT, pt quite weak and recommending SNF at d/c and pt's preference is SNF until back to baseline and [facility] was given referral. SW called Celia at [facility] and confirmed that they can accept pt and are aware that pt may be stable tomorrow or Tues. Will need updated COVID swab and likely copy of COVID vax status. Plan: SW to follow closely to confirm when pt stable for d/c to request updated COVID swab and review with [facility] pt's vaccination COVID status. JERRY Maldonado
[2021-09-12] MEDS: HYDROMORPHONE 1 MG INJ IV ×5 (09:40→22:19)
[2021-09-12] MEDS: OXYCODONE IR 5 MG TABLET 10 MG PO ×4 (11:15→23:19)
--- NOTE | 2021-09-12 15:00 | PT.IPTN ---
Current Diagnoses Unspecified intestinal obstruction, unspecified as to partial versus complete obstruction (08/29/21) Encounter for follow-up examination after completed treatment for conditions other than malignant neoplasm (08/29/21) Surgery Performed Operation Date: 08/31/21 09:45 Actual Procedures p REVISION OF ILEOSTOMY(Right) - Jg Reyes MD Operation Date: 09/06/21 13:15 Actual Procedures p Resite ostomy to left lower quadrant - gJ Reyes MD Physical Therapy Treatment Note M2 PT-IP Current Condition Start: 09/10/21 15:28 Freq: NEEDED Status: Active Protocol: Document 09/10/21 14:55 AB (Rec: 09/10/21 15:59 AB [id number]) Physical Therapy Current Condition Current Condition Evaluation Date 09/10/21 Treatment Diagnosis SBO s/p ileostomy revision and ex lap; difficulty in walking Onset Date 08/29/21 M3 PT-IP Subjective Start: 09/10/21 15:28 Freq: NEEDED Status: Active Protocol: Document 09/12/21 14:46 LJ (Rec: 09/12/21 15:00 LJ [id number]) Subjective Physical Therapy Visit Type Type Treatment Note Visit Start Time 14:10 Visit Stop Time 14:45 Total Visit Minutes 35 Number of PALM AND BACK FORGER Visits 1 Physical Therapy Visit Comments Patient Comments Pt states she is feeling better and pain is under control. Would like to get up and walk. Therapy Pain Assessment Pain When Pain Assessed During Mobility Pain Present Pain Present Pain Reported M4 PT-IP Mobility and Gait Start: 09/10/21 15:28 Freq: NEEDED Status: Active Protocol: Document 09/12/21 14:46 LJ (Rec: 09/12/21 15:00 LJ [id number]) PT-Bed Mobility Assessment Rolling Type of Rolling Roll to Right Level of Assist Standby Assistance Supine to Sit Supine to Sit Standby Assistance,Head of Bed Elevated Sit to Supine Sit to Supine Standby Assistance,Head of Bed Elevated Scooting Scooting to Edge of Bed Standby Assistance Scooting Up and Down in Bed Standby Assistance PT-Transfer Assessment Sit to and From Stand Sit to and from Stand Standby Assistance,Contact Guard Assistance,Use of Upper Extremities Equipment Transfer Assistive Device Gait Belt,Front Wheeled Walker Orthotic/Prosthetic Devices or Brace: No Transfers Transfer Destination Bed Transfer Technique Ambulation Transfer Ability Level of Assist Standby Assistance,Contact Guard Assistance,Use of Upper Extremities Comments Mobility Comments Pt in bed upon arrival. Completed all bed mobility SBA with slow movements and assist with Melara. Sit>stand was completed with 2 tries first pushing off bed ( unsuccessful) then using FWW and bed rail. Pt c/o pain in right great toe (sharp, shooting) which resolved with a couple of minutes ambulation . Upon returning to room pt requested to return to bed. She wa able to get into and position herself SBA with HOB inclined ~40 degrees. Gait Assessment Gait Gait Assistance Required: Standby Assistance,Contact Guard Assist,1 Person Assist Distance (Feet) 130 Able to Maintain Weight Bearing Status Yes During Gait Assistive Devices Assistive Device Gait Belt,Front Wheeled Walker Orthotic/Prosthetic Devices or Brace: No Gait Deviations General Gait Pattern Decreased Stride Length, Decreased Feet Clearance, Flexed Trunk,Narrow Based Gait Factors Limiting Gait Function Factors Limiting Gait Function Abnormal Tonal Influences, Decreased Activity Tolerance, Decreased Strength Comments Gait Comments Pt ambulated in room ~30' then in hallway ~100' with cues for tall posture and keeping FWW close to body. Very slow gait speed. No LOB PT-Balance Assessment Sitting Balance and Reactions Static Sitting Balance Ability Good Dynamic Sitting Balance Ability Good Standing Balance and Reactions Static Standing Balance Ability Good Dynamic Standing Balance Ability Fair Device Used FWW M5 PT-IP Objective Assessments Start: 09/10/21 15:28 Freq: NEEDED Status: Active Protocol: Document 09/10/21 14:55 AB (Rec: 09/10/21 15:59 AB [id number]) Orientation Orientation/Cognition Level of Alertness Alert Orientation Name,Place,Situation Safety Awareness Understands Safety Issues Memory Description No Deficits Noted Gross Range of Motion Lower Extremity ROM Assessment Within Functional Limits Strength Lower Extremity Strength Hip 4-/5 Knee 4/5 Coordination Assessment Gross Coordination Gross Coordination WNL Sensation Assessment Sensation Gross Sensation WNL Muscle Tone Muscle Tone WNL Yes M6 PT-IP Treatment Start: 09/10/21 15:28 Freq: NEEDED Status: Active Protocol: Document 09/12/21 14:46 LJ (Rec: 09/12/21 15:00 LJ [id number]) Physical Therapy Treatment Education Education Provided Precautions,Safety M7 PT-IP Assessment and Plan Start: 09/10/21 15:28 Freq: NEEDED Status: Active Protocol: Document 09/12/21 14:46 LAURA (Rec: 09/12/21 15:00 LAURA [id number]) PT Summary Assessment and Plan Potential Rehabilitation Potential Good Status of Condition at Evaluation Evolving Summary Impairments Pain,ROM,Strength,Balance, Coordination,Bed Mobility, Transfers,Gait,Activity Tolerance Progress Towards Goals Progressing Toward Goals Assessment Summary Pt with less abdominal pain this session. C/o pain toward end of walk but was able to get into bed and situate herself without assist. Pt states she has a friend who can be with her until but will need to return to work on Monday at which time pt would be alone during the day. She would benefit from services to improve strength, endurance, and gait mechanics to return to PLOF without AD Goals Bed Mobility Goal Independent Transfer Goal Independent,Front Wheeled Walker Gait Goal Independent,Front Wheel Walker Gait Distance 200 Other Goals up/down 4 steps R rail ascending SBA improve ambulation without AD 300 ft SBA Days to Meet Goals 10 Frequency of Treatment Frequency Of Treatment Once a Day Treatment Plan Physical Therapy Treatment Plan Bed Mobility Training,Transfer Training,Gait Training, Therapeutic Exercise,Balance Retraining,Post Op Education, Discharge Planning,Hot or Cold Pack,Neuromuscular Re-ed, Coordination Retraining,Manual Therapy Other Recommendations and Next Treatment increase ambulation distance Focus and trial stairs when appropriate. Precautions Abdominal Surgery Precautions Log Roll,Lifting Restrictions, Gait Belt above Incisional Area Recommendations To Nursing Amount of Assist Needed 1 Person Assist Discharge Recommendations PT Discharge Recommendations Home with Assistance,Home Health Equipment Needed for Home Before FWW Discharge Transportation Needs at Discharge Private Vehicle
[2021-09-12] MEDS: CYCLOBENZAPRINE 10 MG TABLET 5 MG TUBE ×2 (15:26→23:20)
--- NOTE | 2021-09-12 15:52 | PM.PNPO.1 ---
Subjective Subjective Date Patient Seen: 09/12/21 Time Patient Seen: 12:30 Interval history: Nurse concerned about old drain site. Patient still can not walk unassisted to bathroom and has misgivings about being able to void w/o dejesus Exam Vital Signs (past 8 hours): - 09/12/21 08:10 09/12/21 13:21 09/12/21 15:47 Temperature 97.6 F 97.7 F 97.8 F Pulse Rate 78 79 81 Respiratory Rate 16 16 17 Blood Pressure 140/66 119/67 144/65 H Pulse Oximetry 96 95 99 Oxygen Delivery Method Room Air Oxygen Flow Rate 0 Narrative Exam Narrative: midline wound is intact, no infection, deepa in place. stoma is healthy and active. old stoma site is packed with wet to dry. fiberinous exudate at drain. Objective Labs Result Diagrams: 09/06/21 09:30 09/08/21 05:26 [facility] Medical History Lynn's esophagus (~2011) Carpal tunnel syndrome (~2002) Chicken pox Colon polyps (~1998) Familial adenomatous polyposis (~1998) Fibroids (~1979) GERD (gastroesophageal reflux disease) (~2011) Measles Mumps Osteoarthritis (~2011) [place] spotted fever (~2019) Rosacea (~2009) Rubella Surgical History (Updated 06/09/21 @ 21:11 by Natasha Merino) Anesthesia History of colectomy (~2015) History of endoscopy (~2017) History of hysterectomy (~1991) Status post small bowel resection (~2019) Family History (Updated 06/09/21 @ 21:20 by Natasha Merino) Father Colon cancer FAP (familial adenomatous polyposis) Mother History of heart disease Mental health problem Brother History of heart disease Grandmother History of heart disease Grandfather Drowned Grandmother Cancer Family/Other FAP (familial adenomatous polyposis) Social History household members: none Smoking Status: Former smoker alcohol intake: current Assessment & Plan Post-op Postoperative Procedures: Procedures Operation Date: 08/31/21 09:45 Actual Procedure Side Surgeon p REVISION OF ILEOSTOMY Right Jg Reyes MD Operation Date: 09/06/21 13:15 Actual Procedure Side Surgeon p Resite ostomy to left lower quadrant Jg Reyes MD Postoperative status narrative: Progressing well after last revision. no complications. Working toward discharge early in the week Postoperative plan narrative: Remove dejesus. continue PT. Time Spent With Patient Time with patient: 15-24 minutes Quality VTE Deep Vein Thrombosis/Pulmonary Embolism Present on Admission: No
[2021-09-12] MEDS: LORazepam 2 MG/ML INJ 0.5 MG IV (19:33)
[2021-09-12] MEDS: ENOXAPARIN 40 MG/0.4 ML SYRINGE SUBCUT (20:08)
[2021-09-12] MEDS: diazePAM 5 MG TABLET 15 MG PO (23:48)
--- NOTE | 2021-09-12 23:54 | PC.NURSE ---
Addendum entered by hCeryl Mann R.N. 09/13/21 06:35: Pt pain slightly improve after diazepam 15 mg given. Pt still getting oxycodone 10 mg and tylenol around the clock. She is still getting diladid 1 IVP and lorazepam iv every 8 hours. Pt had a bladder scan that was difficult to do due to her wounds and incision to her abdomen, there pt had an In & out cath tonight. Plan is to continue with pain control and increase mobility. Original Note: This nurse Called Dr. Chance william because pt has been having increase pain/spams to her lower back, radiating to the right of her stomach. pt also hasn't urinated since dejesus catheter was discontinue earlier today. Pt also has had a low temp 99.8. 100.4 and at one point 104. tylenol has been given and current temperature is 99.9. Orders taken for valium 15 mg po every 6 hours as needed and to do and In and out catheter as needed.
[2021-09-13] MEDS: LORazepam 2 MG/ML INJ 0.5 MG IV (01:57)
[2021-09-13] MEDS: HYDROMORPHONE 1 MG INJ IV ×2 (02:27→11:04)
[2021-09-13] MEDS: OXYCODONE IR 5 MG TABLET 10 MG PO ×5 (03:19→20:56)
[2021-09-13 03:32] VITALS: BP 113/52; PULSE 79; RESP 14; TEMP 36.6; O2SAT 93
[2021-09-13] MEDS: ACETAMINOPHEN 325 MG TABLET 650 MG PO ×4 (05:36→23:03)
[2021-09-13] MEDS: diazePAM 5 MG TABLET 15 MG PO ×2 (05:36→23:03)
[2021-09-13 07:00] VITALS: BP 123/61; PULSE 90; RESP 16; TEMP 36.4; O2SAT 92
[2021-09-13] MEDS: CYCLOBENZAPRINE 10 MG TABLET 5 MG TUBE ×2 (07:40→15:43)
[2021-09-13] MEDS: TAMSULOSIN 0.4 MG CAPSULE PO (09:45)
[2021-09-13] MEDS: SODIUM CHLORIDE 0.9% FLUSH 10 ML IV ×2 (09:46→20:56)
--- NOTE | 2021-09-13 09:50 | PM.PN.1 ---
Subjective Subjective Date Patient Seen: 09/13/21 Time Patient Seen: 09:50 Interval history: Complains of spasms of right-sided abdominal pain since last night. She feels that this is triggered by activity including getting up and going to the bathroom. She has not been able to void since her Melara came out and has required straight caths. 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 Exam Vital Signs (past 8 hours): - 09/13/21 03:32 09/13/21 07:00 Temperature 97.9 F 97.6 F Pulse Rate 79 90 Respiratory Rate 14 16 Blood Pressure 113/52 L 123/61 Pulse Oximetry 93 92 Oxygen Delivery Method Room Air Oxygen Flow Rate 0 Narrative Exam Narrative: Ileostomy is healthy appearing and functional. Midline wound is mildly erythematous with no signs of wound infection Objective Labs Result Diagrams: 09/06/21 09:30 09/08/21 05:26 COUNTS INCLUDE 234 BEDS AT THE [facility] Medical History Lynn's esophagus (~2011) Carpal tunnel syndrome (~2002) Chicken pox Colon polyps (~1998) Familial adenomatous polyposis (~1998) Fibroids (~1979) GERD (gastroesophageal reflux disease) (~2011) Measles Mumps Osteoarthritis (~2011) [place] spotted fever (~2019) Rosacea (~2009) Rubella Surgical History (Updated 06/09/21 @ 21:11 by Natasha Merino) Anesthesia History of colectomy (~2015) History of endoscopy (~2017) History of hysterectomy (~1991) Status post small bowel resection (~2019) Family History (Updated 06/09/21 @ 21:20 by Natasha Merino) Father Colon cancer FAP (familial adenomatous polyposis) Mother History of heart disease Mental health problem Brother History of heart disease Grandmother History of heart disease Grandfather Drowned Grandmother Cancer Family/Other FAP (familial adenomatous polyposis) Social History household members: none Smoking Status: Former smoker alcohol intake: current Assessment & Plan Assessment and plan (1) Postoperative examination: Status: Acute Plan I suspect the increasing right-sided abdominal pain is related to increased activity causing pain at the 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 Replace Melara catheter if she continues to require straight catheterization. Continue daily dry gauze dressing changes to the old ileostomy wound. Surgical site pain should improve time. Time Spent With Patient Critical Care time: I spent a total of [] minutes of critical care time on this patient's care today; this time is exclusive of procedural time. Quality VTE Deep Vein Thrombosis/Pulmonary Embolism Present on Admission: No
--- NOTE | 2021-09-13 10:35 | PT-IP ANOTE ---
Pt screaming in pain upon entry. Pt refused therapy this AM due to high reported pain. Scooted pt up in bed Max A x2 w/ OT. Will check on pt later today.
--- NOTE | 2021-09-13 10:36 | OT.IP.TRT ---
Current Diagnoses Unspecified intestinal obstruction, unspecified as to partial versus complete obstruction (08/29/21) Encounter for follow-up examination after completed treatment for conditions other than malignant neoplasm (08/29/21) Surgery Performed Operation Date: 08/31/21 09:45 Actual Procedures p REVISION OF ILEOSTOMY(Right) - Jg Reyes MD Operation Date: 09/06/21 13:15 Actual Procedures p Resite ostomy to left lower quadrant - Jg Reyes MD Occupational Therapy Treatment Note M2 OT-IP Current Condition Start: 09/10/21 15:17 Freq: Status: Active Protocol: Document 09/10/21 15:18 [facility] (Rec: 09/10/21 15:36 [facility] [id number]) Occupational Therapy Current Condition Current Condition Evaluation Date 09/10/21 Treatment Diagnosis SBO, s/p exploratory laprotomy w/ reciting of ileostomy, decreased mobility Diagnosis Onset Date 08/29/21 Post Operative Precautions Abdominal Surgery Precautions Log Roll,Lifting Restrictions, Gait Belt above Incisional Area M3 OT- IP Subjective and Pain Start: 09/10/21 15:17 Freq: Status: Active Protocol: Document 09/13/21 12:29 [facility] (Rec: 09/13/21 12:35 [facility] [id number]) OT- Subjective Occupational Therapy Visit Type Type Progress Note Visit Start Time 10:22 Visit Stop Time 10:36 Total Visit Minutes 14 Notes Pt with limited ability to participate d/t pain. OT Pain Assessment Pain When Pain Assessed During Mobility Pain Present Pain Present Pain Reported Location Back Intensity 10 Management Techniques Distraction,Modification of Treatment,Re-positioning, Timing of Activity with Medications M4 OT- IP ADL's Start: 09/10/21 15:17 Freq: Status: Active Protocol: Document 09/10/21 15:18 [facility] (Rec: 09/10/21 15:36 [facility] [id number]) OT [id number] Comments OT Self-Feeding Comments NOt at meal time. OT ADL-Grooming Comments OT Grooming Comments Pt too tired to attempt at this time. OT ADL-Oral Care Comments Oral Care Comments Not performed. OT ADL-Dressing General Eval Lower Body Dressing Ability Standby Assistance Areas Needing Assistance Socks Comments OT Dressing Comments Pt able to comfortable cross her legs to mireille/doff her socks while seated on the edge of the bed. OT ADL-Toileting General Evaluation Toileting Ability Total Assistance Comments OT Toileting Comments Melara in place. OT ADL-Bathing Comments OT Bathing Comments Not performed, pt too tired. M5 OT- IP IADL's Start: 09/10/21 15:17 Freq: Status: Active Protocol: Document 09/10/21 15:18 [facility] (Rec: 09/10/21 15:36 [facility] [id number]) OT-Instrumental Activities of Daily Living Deficits IADL Deficits Identified Deficits Home Safety Awareness Awareness of Need for Assistance at Home Good Awareness Ability to Problem Solve Emergency Able to Problem Solve Situations M6 OT- IP Functional Cognition Start: 09/10/21 15:17 Freq: Status: Active Protocol: Document 09/11/21 09:15 [facility] (Rec: 09/11/21 09:20 [facility] [id number]) Cognitive Factors Limiting Selfcare Function Cognitive Comments Cognitive Assessment Comments Pt is cognitively intact. Pt states concerned that she is not getting her pain medicaitons at night as she is sleeping. Suggested to ask the nursing aids to wake her up at night so able to request her pain medications as needed. M7 OT- IP Mobility and Balance Start: 09/10/21 15:17 Freq: Status: Active Protocol: Document 09/13/21 12:29 [facility] (Rec: 09/13/21 12:35 [facility] [id number]) OT- Bed Mobility Assessment Supine to Sit Supine to Sit Assist Maximum Assistance,1 Person Assistance Scooting Scooting Up and Down in Bed Total Assistance,2 Person Assistance M9 OT- IP Assessment and Plan Start: 09/10/21 15:17 Freq: Status: Active Protocol: Document 09/13/21 12:29 [facility] (Rec: 09/13/21 12:35 [facility] [id number]) OT Summary Assessment and Plan Potential Rehabilitation Potential Good Analytic Complexity at Evaluation Moderate Summary OT Impairments Pain,Balance,Functional Mobility,Dressing,Toileting, Bathing,Toilet Transfers, Shower Transfers,Activity Tolerance Progress Towards Goals Slow Progress due to Pain,Slow Progress due to Medical Issues,Slow Progress due to Activity Tolerance Assessment Summary Pt reports 10/10 pain with all movement. Reports muscle spasms to the anterior right hip/abdominal area. Pt declined stretching, pressure points, repositioning and yelled out in pain throughout most of the session. Pt will continue to benefit from therapy services. Goals Grooming Goal Independent Dressing Goal Independent Toileting Goal Independent Bathing Goal Independent Toilet Transfer Goal Independent Shower Transfer Goal Independent Patient/Caregiver Education Goal Demonstrate Post-Op Precautions Days to Meet Goals 25 Frequency of Treatment Frequency Of Treatment Once a Day Treatment Plan OT Treatment Plan ADL Training,Functional Mobility,Patient/Family Education,Discharge Planning Other Treatment Recommendations and Next Stand at sink for grooming Treatment Focus needs. Discharge Recommendations OT Discharge Recommendations SNF Rehab Home Equipment Needs Shower chair,bedrail, bsc, shower chair Transportation Needs at Discharge Wheelchair/Cabulance
[2021-09-13 11:00] VITALS: BP 130/65; PULSE 86; RESP 16; TEMP 36.3; O2SAT 91
--- NOTE | 2021-09-13 12:51 | PT-IP ANOTE ---
Attempted to see pt again at 12:51, pt sleeping upon arrival and then refused therapy stating she is still in too much pain. Will try again tomorrow.
[2021-09-13 15:00] VITALS: BP 123/54; PULSE 88; RESP 16; TEMP 36.1; O2SAT 95
--- NOTE | 2021-09-13 15:24 | PC.NURSE ---
Patient seen by Dr. Reyes first thing this morning, they discussed patient's increased (new since yesterday) right sided/abdomen pain and muscle spasms as patient calls them. Patient states they have been so severe she can't get up from bed. She feels very weak. Order to replace dejesus for urinary retention and patient's inability to mobilize at this time. Patient tolerated dejesus catheter placement without difficulty and clear yellow urine draining spontaneously. Patient's new left sided ileostomy appliance changed for leakage. Stoma is beefy red and surrounding skin intact. Midline abdominal incision with deepa [employer]. Right previous ileostomy site cleansed with normal saline and packed with dry gauze, covered with gauze and secured with paper tape. Patient tolerated well. Patient currently sitting up in bed, having a snack. Continue with plan of care, continue to monitor, continue to encourage mobilization.
--- NOTE | 2021-09-13 16:03 | CM.DPC ---
DCP/continued: Reviewed chart. Received call from March at [facility] today. She reports that patient has to be off IV pain medications x24hrs before she can admit to [facility]. MANAGER LSW spoke with RN/Baltazar whom indicates that patient continues to have pain. RN plans to call provider with the above information and to check on whether or not consult for hospitalist is appropriate. P: [facility] when medically stable. CM team following closely. [place]
[2021-09-13 20:00] VITALS: BP 141/64; PULSE 86; RESP 16; TEMP 36.4; O2SAT 93
[2021-09-13] MEDS: ENOXAPARIN 40 MG/0.4 ML SYRINGE SUBCUT (20:56)
[2021-09-14] VITALS (7 sets, daily range): BP systolic 118–145; BP diastolic 52–69; PULSE 81–95; RESP 12–20; TEMP 36.8–37.7; O2SAT 90–95
[2021-09-14] MEDS: OXYCODONE IR 5 MG TABLET 10 MG PO ×4 (04:08→20:21)
[2021-09-14] MEDS: diazePAM 5 MG TABLET 15 MG PO ×3 (05:58→23:09)
[2021-09-14] MEDS: ACETAMINOPHEN 325 MG TABLET 650 MG PO ×3 (05:58→23:09)
[2021-09-14] MEDS: TAMSULOSIN 0.4 MG CAPSULE PO (08:16)
[2021-09-14] MEDS: SODIUM CHLORIDE 0.9% FLUSH 10 ML IV ×2 (08:17→20:21)
--- NOTE | 2021-09-14 12:02 | OT.IP.TRT ---
Current Diagnoses Unspecified intestinal obstruction, unspecified as to partial versus complete obstruction (08/29/21) Encounter for follow-up examination after completed treatment for conditions other than malignant neoplasm (08/29/21) Surgery Performed Operation Date: 08/31/21 09:45 Actual Procedures p REVISION OF ILEOSTOMY(Right) - Jg Reyes MD Operation Date: 09/06/21 13:15 Actual Procedures p Resite ostomy to left lower quadrant - Jg Reyes MD Occupational Therapy Treatment Note M2 OT-IP Current Condition Start: 09/10/21 15:17 Freq: Status: Active Protocol: Document 09/10/21 15:18 [facility] (Rec: 09/10/21 15:36 [facility] [id number]) Occupational Therapy Current Condition Current Condition Evaluation Date 09/10/21 Treatment Diagnosis SBO, s/p exploratory laprotomy w/ reciting of ileostomy, decreased mobility Diagnosis Onset Date 08/29/21 Post Operative Precautions Abdominal Surgery Precautions Log Roll,Lifting Restrictions, Gait Belt above Incisional Area M3 OT- IP Subjective and Pain Start: 09/10/21 15:17 Freq: Status: Active Protocol: Document 09/14/21 12:02 [facility] (Rec: 09/14/21 13:57 [facility] [id number]) OT- Subjective Occupational Therapy Visit Type Type Treatment Note Visit Start Time 12:02 Visit Stop Time 13:15 Total Visit Minutes 48 Notes Pt seen for split treatment. 1202-121- and [id number]. Pt wanting to had a abdominal binder to assist to provide support for her. Pt's doctore came in and able to get verbal orders for the abdominal binder to be worn per pt's comfort. Occupational Therapy Visit Comments Patient Comments Pt agreed to get up but wanting to have the abdominal binder on initially. Patient/Caregiver Goals To get better. OT Pain Assessment Pain When Pain Assessed During Mobility Pain Present Pain Present Pain Reported M4 OT- IP ADL's Start: 09/10/21 15:17 Freq: Status: Active Protocol: Document 09/14/21 12:02 [facility] (Rec: 09/14/21 13:57 [facility] [id number]) OT ADL-Grooming General Evaluation Grooming Ability Independent Areas Needing Assistance Retrieving/Set-up of Grooming Items Comments OT Grooming Comments Pt able to do while in bed after set-up. Pt states at this time too painful to try to do while standing at the sink. Pt needing assist to help get the abdominal binder in place. OT ADL-Oral Care General Eval Oral Care Ability Independent OT ADL-Toileting Comments OT Toileting Comments Melara in place. OT ADL-Bathing Comments OT Bathing Comments Pt states sponged off eariler with nursing aid. M5 OT- IP IADL's Start: 09/10/21 15:17 Freq: Status: Active Protocol: Document 09/10/21 15:18 [facility] (Rec: 09/10/21 15:36 [facility] [id number]) OT-Instrumental Activities of Daily Living Deficits IADL Deficits Identified Deficits Home Safety Awareness Awareness of Need for Assistance at Home Good Awareness Ability to Problem Solve Emergency Able to Problem Solve Situations M6 OT- IP Functional Cognition Start: 09/10/21 15:17 Freq: Status: Active Protocol: Document 09/14/21 12:02 [facility] (Rec: 09/14/21 13:57 [facility] [id number]) Cognitive Factors Limiting Selfcare Function Cognitive Comments Cognitive Assessment Comments Pt has a tendency to direct her care. Educated her to follow log rolling but pt insists on keeping the head of the bed up and moving in small increments to get to the edge of the bed. M7 OT- IP Mobility and Balance Start: 09/10/21 15:17 Freq: Status: Active Protocol: Document 09/14/21 12:02 [facility] (Rec: 09/14/21 13:57 [facility] [id number]) OT- Bed Mobility Assessment Supine to Sit Supine to Sit Assist Standby Assistance,Head of Bed Elevated,Bedrails Sit to Supine Sit to Supine Assist Standby Assistance,Head of Bed Elevated,Bedrails OT-Transfer Assessment Sit to and From Stand Sit to and from Stand Moderate Assistance Transfers Transfer Ability Contact Guard Assistance, Minimal Assistance Technique Transfer Destination Bed,Chair Transfer Technique Stand Step Pivot Devices Transfer Assistive Devices Gait Belt,Front Wheeled Walker Comments Mobility Comments Moda to stand with FWW and heavy use of BUE on the handles of FWW at this time. OT- Balance Assessment Sitting Balance and Reactions Static Sitting Balance Ability Good Dynamic Sitting Balance Ability Good Standing Balance and Reactions Static Standing Balance Ability Fair M9 OT- IP Assessment and Plan Start: 09/10/21 15:17 Freq: Status: Active Protocol: Document 09/14/21 12:02 [facility] (Rec: 09/14/21 13:57 [facility] [id number]) OT Summary Assessment and Plan Potential Rehabilitation Potential Good Analytic Complexity at Evaluation Moderate Summary OT Impairments Pain,Balance,Functional Mobility,Dressing,Toileting, Bathing,Toilet Transfers, Shower Transfers,Activity Tolerance Progress Towards Goals Progressing Toward Goals Assessment Summary Pt able to tolerate wearing the binder and able to walk in the room with FWW and CGA. Pt encouraged to do what she can to get better. Pt is motivated to get better and looking to go to skilled rehab prior to going home. Goals Grooming Goal Independent Dressing Goal Independent Toileting Goal Independent Bathing Goal Independent Toilet Transfer Goal Independent Shower Transfer Goal Independent Patient/Caregiver Education Goal Demonstrate Post-Op Precautions Days to Meet Goals 24 Frequency of Treatment Frequency Of Treatment Once a Day Treatment Plan OT Treatment Plan ADL Training,Functional Mobility,Patient/Family Education,Discharge Planning Other Treatment Recommendations and Next Stand at sink for grooming Treatment Focus needs. Discharge Recommendations OT Discharge Recommendations SNF Rehab Home Equipment Needs Shower chair,bedrail, bsc, shower chair Transportation Needs at Discharge Wheelchair/Cabulance
--- NOTE | 2021-09-14 12:05 | PT-IP ANOTE ---
Attempted to see pt at 12:05, pt refused stating she wants to wait until she has an abdominal binder to mobilize because she is in a lot of pain.
--- NOTE | 2021-09-14 12:12 | P.PN_ITS ---
Subjective Subjective Date Patient Seen: 09/14/21 Time Patient Seen: 12:13 Interval history: Zuly is doing little bit better today but still having right lower quadrant pain particularly when she is up and moving. This has been interfering with her therapy. She is tolerating diet having good ileostomy function. Exam Vital Signs (past 8 hours): - 09/14/21 05:00 09/14/21 09:00 Temperature 99.0 F 98.9 F Pulse Rate 87 85 Respiratory Rate 16 16 Blood Pressure 139/68 118/52 L Pulse Oximetry 94 93 Oxygen Delivery Method Room Air Oxygen Flow Rate 0 Narrative Exam Narrative: No acute distress Objective Labs Result Diagrams: 09/06/21 09:30 09/08/21 05:26 [facility] Medical History Lynn's esophagus (~2011) Carpal tunnel syndrome (~2002) Chicken pox Colon polyps (~1998) Familial adenomatous polyposis (~1998) Fibroids (~1979) GERD (gastroesophageal reflux disease) (~2011) Measles Mumps Osteoarthritis (~2011) [place] spotted fever (~2019) Rosacea (~2009) Rubella Surgical History (Updated 06/09/21 @ 21:11 by Natasha Merino) Anesthesia History of colectomy (~2015) History of endoscopy (~2017) History of hysterectomy (~1991) Status post small bowel resection (~2019) Family History (Updated 06/09/21 @ 21:20 by Natasha Merino) Father Colon cancer FAP (familial adenomatous polyposis) Mother History of heart disease Mental health problem Brother History of heart disease Grandmother History of heart disease Grandfather Drowned Grandmother Cancer Family/Other FAP (familial adenomatous polyposis) Social History household members: none Smoking Status: Former smoker alcohol intake: current Assessment & Plan Assessment and plan (1) Postoperative examination: Status: Acute Plan Okay to try an abdominal binder to see if it helps with the pain from ambulating. Time Spent With Patient Critical Care time: I spent a total of [] minutes of critical care time on this patient's care today; this time is exclusive of procedural time. Quality VTE Deep Vein Thrombosis/Pulmonary Embolism Present on Admission: No
--- NOTE | 2021-09-14 13:15 | PT.IPTN ---
Current Diagnoses Unspecified intestinal obstruction, unspecified as to partial versus complete obstruction (08/29/21) Encounter for follow-up examination after completed treatment for conditions other than malignant neoplasm (08/29/21) Surgery Performed Operation Date: 08/31/21 09:45 Actual Procedures p REVISION OF ILEOSTOMY(Right) - Jg Reyes MD Operation Date: 09/06/21 13:15 Actual Procedures p Resite ostomy to left lower quadrant - Jg Reyes MD Physical Therapy Treatment Note M2 PT-IP Current Condition Start: 09/10/21 15:28 Freq: NEEDED Status: Active Protocol: Document 09/10/21 14:55 AB (Rec: 09/10/21 15:59 AB [id number]) Physical Therapy Current Condition Current Condition Evaluation Date 09/10/21 Treatment Diagnosis SBO s/p ileostomy revision and ex lap; difficulty in walking Onset Date 08/29/21 M3 PT-IP Subjective Start: 09/10/21 15:28 Freq: NEEDED Status: Active Protocol: Document 09/14/21 12:36 KS (Rec: 09/14/21 14:13 KS [id number]) Subjective Physical Therapy Visit Type Type Treatment Note Visit Start Time 12:36 Visit Stop Time 13:15 Total Visit Minutes 39 Notes Co-treat w/ OT. Number of TRANSPORTATION INSPECTOR Visits 2 Physical Therapy Visit Comments Patient Comments Pt agreeable to ambulation. Therapy Pain Assessment Pain When Pain Assessed During Mobility Pain Present Pain Present Pain Reported M4 PT-IP Mobility and Gait Start: 09/10/21 15:28 Freq: NEEDED Status: Active Protocol: Document 09/14/21 12:36 KS (Rec: 09/14/21 14:13 KS [id number]) PT-Bed Mobility Assessment Supine to Sit Supine to Sit Standby Assistance,Head of Bed Elevated Sit to Supine Sit to Supine Standby Assistance,Head of Bed Elevated Scooting Scooting to Edge of Bed Standby Assistance PT-Transfer Assessment Sit to and From Stand Sit to and from Stand Moderate Assistance,1 Person Assistance,Use of Upper Extremities Equipment Transfer Assistive Device Gait Belt,Front Wheeled Walker Orthotic/Prosthetic Devices or Brace: No Transfers Transfer Destination Bed Transfer Technique Ambulation Transfer Ability Level of Assist Minimal Assistance,Moderate Assistance,1 Person Assistance ,Use of Upper Extremities Comments Mobility Comments Pt in bed upon arrival, SBA for sup<>sit but refused to adhere to logroll. Pt moved slowly and cautiously throughout treatment. Able to maintain seated balance for abdominal binder application. Pt SBA for scooting EOB and Mod A and cues for sit<>stand w/ FWW. Pt then ambulated ~15 ft to chair w/ FWW and CGA and cues for upright posture. After 3 min seated rest break, pt ambulated additional 35 ft w/ FWW and CGA w/ frequent cues for increased stride and upright posture. She reported fatigue during ambulation. She then returned to bed SBA. Pt left in bed w/ OT in room. Gait Assessment Gait Gait Assistance Required: Contact Guard Assist,Minimum Assistance,1 Person Assist Distance (Feet) 50 Able to Maintain Weight Bearing Status Yes During Gait Assistive Devices Assistive Device Gait Belt,Front Wheeled Walker Orthotic/Prosthetic Devices or Brace: No Gait Deviations General Gait Pattern Decreased Stride Length, Decreased Feet Clearance, Flexed Trunk,Narrow Based Gait Factors Limiting Gait Function Factors Limiting Gait Function Abnormal Tonal Influences, Decreased Activity Tolerance, Decreased Strength Comments Gait Comments Pt ambulated ~50 ft w/ FWW and CGA w/ cues for upright posture and increased stride. Pt quick to fatigue and w/ very slow gait speed. PT-Balance Assessment Sitting Balance and Reactions Static Sitting Balance Ability Good Dynamic Sitting Balance Ability Good Standing Balance and Reactions Static Standing Balance Ability Good Dynamic Standing Balance Ability Fair Device Used FWW M5 PT-IP Objective Assessments Start: 09/10/21 15:28 Freq: NEEDED Status: Active Protocol: Document 09/10/21 14:55 AB (Rec: 09/10/21 15:59 AB [id number]) Orientation Orientation/Cognition Level of Alertness Alert Orientation Name,Place,Situation Safety Awareness Understands Safety Issues Memory Description No Deficits Noted Gross Range of Motion Lower Extremity ROM Assessment Within Functional Limits Strength Lower Extremity Strength Hip 4-/5 Knee 4/5 Coordination Assessment Gross Coordination Gross Coordination WNL Sensation Assessment Sensation Gross Sensation WNL Muscle Tone Muscle Tone WNL Yes M6 PT-IP Treatment Start: 09/10/21 15:28 Freq: NEEDED Status: Active Protocol: Document 09/14/21 12:36 KS (Rec: 09/14/21 14:13 KS [id number]) Physical Therapy Treatment Education Education Provided Precautions,Safety M7 PT-IP Assessment and Plan Start: 09/10/21 15:28 Freq: NEEDED Status: Active Protocol: Document 09/14/21 12:36 KS (Rec: 09/14/21 14:13 KS [id number]) PT Summary Assessment and Plan Potential Rehabilitation Potential Good Status of Condition at Evaluation Evolving Summary Impairments Pain,ROM,Strength,Balance, Coordination,Bed Mobility, Transfers,Gait,Activity Tolerance Progress Towards Goals Progressing Toward Goals Assessment Summary Pt continues to be limited by pain, but expressed some relief in symptoms following application of abdominal binder. SBA for bed mobility, refused logroll. Mod A for sit <>stand and CGA to Min for ambulation. Pt will require SNF to improve activity tolerace and functional mobility independence. Goals Bed Mobility Goal Independent Transfer Goal Independent,Front Wheeled Walker Gait Goal Independent,Front Wheel Walker Gait Distance 200 Other Goals up/down 4 steps R rail ascending SBA improve ambulation without AD 300 ft SBA Days to Meet Goals 10 Frequency of Treatment Frequency Of Treatment Once a Day Treatment Plan Physical Therapy Treatment Plan Bed Mobility Training,Transfer Training,Gait Training, Therapeutic Exercise,Balance Retraining,Post Op Education, Discharge Planning,Hot or Cold Pack,Neuromuscular Re-ed, Coordination Retraining,Manual Therapy Other Recommendations and Next Treatment increase ambulation distance Focus and trial stairs when appropriate. Precautions Abdominal Surgery Precautions Log Roll,Lifting Restrictions, Gait Belt above Incisional Area Recommendations To Nursing Amount of Assist Needed 1 Person Assist Discharge Recommendations PT Discharge Recommendations Home with 01/05 Assist Available,SNF Rehab Equipment Needed for Home Before FWW Discharge Transportation Needs at Discharge Wheelchair/Cabulance
--- NOTE | 2021-09-14 13:38 | DIET.PN1 ---
Dietary Progress Note RD Note: Pt endorses being hungry today, ordered egg salad sandwich c lunch. Pt dislikes Ensure Max so discontinued ONS now that pts appetite is increased. Ht: 167.64 cm Wt: 78.5 kg BMI: 27.9 Last BM: 09/13/21 (09/13/21 05:55) MNA: 14 Jorge Score: 18 Diet: 09/09/21 Dinner General (Regular) Diet Diet Modifications: low fiber, ileostomy Nutrition Percent Meal Consumed 50% 09/13/21 18:00 Percent Meal Consumed 25% 09/13/21 09:00 Percent Meal Consumed 10 % 09/12/21 18:00 Labs: RBC 3.59 X10^6/uL (4.0-5.2) L 09/06/21 09:30 Hgb 11.5 g/dL (12.0-16.0) L 09/06/21 09:30 Hct 33.8 % (36-46) L 09/06/21 09:30 Creatinine 0.63 mg/dL (0.52-1.04) 09/08/21 05:26 Lactate 1.0 mmol/L (0.7-2.1) 08/29/21 12:45 Monitoring/Evaluations: following POs Electronically Signed by: Nory Jones 09/14/21 13:38 Clinical Dietitian [address] [address]
--- NOTE | 2021-09-14 16:06 | P.DS_ITS ---
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 She reports she did have a peristomal hernia repair for an emergent bowel obstruction in 2019 in [place]. She now presents with 3 days of nausea, vomiting, abdominal pain and decreased ileostomy output which she states feels like her prior obstruction. The CT shows a likely obstruction at the level of the ileostomy. Although the radiology report implies that a loop of bowel is herniated alongside the ileostomy, it may in fact be a redundancy in the ileum coming through the fascia and causing compression of the ileum at the level of the fascia. Discharge Providers Provider Date of admission: 08/29/21 16:23 Discharge Date: 09/14/21 Primary care physician: He Ferrer MD Consults: 08/29/21 15:32 Consult to General Surgery Urgent Comment: Consulting Provider: Jg Reyes Reason for consultation: SBO Has provider been notified: Yes 08/31/21 17:37 Consult to Discharge Planning Routine Comment: 09/04/21 12:35 Consult After Hours PICC Line RN Routine Comment: 09/09/21 16:47 Consult to Home Health Routine Comment: help with initial few dressing changes w dry gauze Reason For Exam: Right lower quadrant wound 09/10/21 11:01 Consult to Occupational Therapy Evaluate & Treat Comment: Physician Instructions: Evaluate and treat Consult to Physical Therapy Evaluate & Treat Comment: Physician Instructions: Evaluate and Treat 09/14/21 12:12 Consult to Occupational Therapy Evaluate & Treat Comment: Pt to have abdominal binder on for comfort as need Physician Instructions: Evaluate and treat Discharge provider: Jg Reyes MD Summary Hospital Course Discharge Diagnosis: Bowel obstruction Hospital Course: Zuly is a 71-year-old woman who presented with a bowel obstruction at her and ileostomy on August 29. She was observed for 2 days but failed to improve and was taken to the operating room on 08/31 for a revision of the end ileostomy in the right lower quadrant. It seemed that she had a form of a peristomal hernia involving the distal ileum prolapsing into the subcutaneous space. She seemed to improve for few days after the revision but then became obstructed again. She was then returned to the OR on 09/06 for exploratory laparotomy with reciting of the ileostomy to the left lower quadrant. She recovered bowel function in the expected amount of time but her postoperative progress was slow due to pain primarily at her old right lower quadrant ileostomy site. Eventually she was able to transition to shelter facility. At the time of her discharge her new left lower quadrant ileostomy was working well. Her old right lower quadrant ileostomy site was being packed with dry gauze daily. She has deepa at her midline incision which will be removed at her postoperative visit. Exam Vital Signs (past 8 hours): - 09/14/21 09:00 09/14/21 12:49 Temperature 98.9 F 99 F Pulse Rate 85 95 H Respiratory Rate 16 16 Blood Pressure 118/52 L 131/55 L Pulse Oximetry 93 95 Oxygen Delivery Method Room Air Oxygen Flow Rate 0 Objective Labs Result Diagrams: 09/06/21 09:30 09/08/21 05:26 [facility] Medical History Lynn's esophagus (~2011) Carpal tunnel syndrome (~2002) Chicken pox Colon polyps (~1998) Familial adenomatous polyposis (~1998) Fibroids (~1979) GERD (gastroesophageal reflux disease) (~2011) Measles Mumps Osteoarthritis (~2011) [place] spotted fever (~2019) Rosacea (~2009) Rubella Surgical History (Updated 06/09/21 @ 21:11 by Natasha Merino) Anesthesia History of colectomy (~2015) History of endoscopy (~2017) History of hysterectomy (~1991) Status post small bowel resection (~2019) Family History (Updated 06/09/21 @ 21:20 by Natasha Merino) Father Colon cancer FAP (familial adenomatous polyposis) Mother History of heart disease Mental health problem Brother History of heart disease Grandmother History of heart disease Grandfather Drowned Grandmother Cancer Family/Other FAP (familial adenomatous polyposis) Social History household members: none Smoking Status: Former smoker alcohol intake: current Discharge Plan Discharge Plan Transfer to: [facility] Discharge orders & Medications Discharge Orders: Discharge (Order); Ordered 09/14/21 Ordered By: Jg Reyes Prescriptions: New oxycodone-acetaminophen [Percocet] 10-325 mg tablet 1 tab PO Q4H PRN (Reason: pain) Qty: 30 0RF Continued losartan 50 mg tablet 50 mg PO DAILY Qty: 90 2RF diphenhydramine HCl [Benadryl Allergy] 25 mg tablet 25 mg PO BEDTIME 0RF gabapentin 600 mg tablet 600 mg PO TID Qty: 270 3RF Discontinued oxycodone-acetaminophen [Percocet] 5-325 mg tablet 1 tab PO 5XD PRN (Reason: pain) Qty: 150 0RF Rx Instructions: EXEMPT Follow up/Referrals: He Ferrer MD [Primary Care Provider] - Diet/Activity/Treatments Diet: Regular Activity: No restrictions Skin/Wound/Dressing Care Report to your healthcare provider any signs of infection, such as:: chills, fever, night sweats, increased pain, unusual drainage and unusual redness Special Rehabilitation Services Reason for rehabilitation: Post-operative therapy and Recovery r/t decondition Discharge Data Primary Care Provider: eH Ferrer Quality VTE Deep Vein Thrombosis/Pulmonary Embolism Present on Admission: No
--- NOTE | 2021-09-14 18:12 | PC.NURSE ---
Dressing to previous ostomy site on RLQ changed per order, cleansed with saline, packed with dry gauze and foam allevyn dressing placed. CDI.
[2021-09-14] MEDS: ENOXAPARIN 40 MG/0.4 ML SYRINGE SUBCUT (20:20)
--- NOTE | 2021-09-14 23:32 | PC.NURSE ---
Addendum entered by Sandra Sheridan R.N. 09/15/21 02:02: Late entry: Patient removed NC around 0045 and has held O2 saturation at 93% on RA. Original Note: Patient was resting in bed and was woken up for VS at shift change. This RN took patients vitals at 1945 and O2 saturation was decreased at 90%. This RN educated the patient on taking good breaths and holding her charly bear or a pillow to help splint while doing so. Patient stated she would try but was worried about it causes spasms. Patient was placed on 2L NC and the binder around her abdominal area was removed. O2 saturation quickly increased to 95% so O2 was decreased to 1L NC and a continuous pulse ox was left on the patients finger to monitor. Pt seems to decrease when sleeping only and O2 increases while awake. O2 saturation is staying around 94% with 1L NC while patient is sleeping. Will continue to monitor with continuous pulse ox d/t patients continued need for PRN Valium and 10mg Oxy.
[2021-09-15 00:50] VITALS: O2SAT 93
[2021-09-15] MEDS: OXYCODONE IR 5 MG TABLET 10 MG PO ×3 (02:51→12:07)
[2021-09-15 03:00] VITALS: BP 123/61; PULSE 78; RESP 14; TEMP 36.2; O2SAT 94
[2021-09-15] MEDS: ACETAMINOPHEN 325 MG TABLET 650 MG PO ×2 (06:18→12:07)
[2021-09-15] MEDS: diazePAM 5 MG TABLET 15 MG PO (06:19)
[2021-09-15 07:51] VITALS: O2SAT 93
[2021-09-15 08:07] VITALS: BP 131/60; PULSE 89; RESP 16; TEMP 37.2; O2SAT 93
[2021-09-15] MEDS: TAMSULOSIN 0.4 MG CAPSULE PO (08:07)
[2021-09-15] MEDS: SODIUM CHLORIDE 0.9% FLUSH 10 ML IV (08:07)
[2021-09-15 10:00] VITALS: BP 124/61; PULSE 100; RESP 16; TEMP 36.1; O2SAT 95
--- NOTE | 2021-09-15 10:02 | PC.NURSE ---
Addendum entered by Susu Shahid R.N. 09/15/21 13:32: flu vaccine in packet, covid result in packet. sent patient with extra ostomy bags. Addendum entered by Susu Shahid R.N. 09/15/21 12:16: PICC removed. pt tolerated well. Original Note: RLQ drsng changed approx 0900, cleansed with NS and packed with gauze, covered with allyvn ester.
--- NOTE | 2021-09-15 10:05 | PT.IPTN ---
Current Diagnoses Unspecified intestinal obstruction, unspecified as to partial versus complete obstruction (08/29/21) Encounter for follow-up examination after completed treatment for conditions other than malignant neoplasm (08/29/21) Surgery Performed Operation Date: 08/31/21 09:45 Actual Procedures p REVISION OF ILEOSTOMY(Right) - Jg Reyes MD Operation Date: 09/06/21 13:15 Actual Procedures p Resite ostomy to left lower quadrant - Jg Reyes MD Physical Therapy Treatment Note M2 PT-IP Current Condition Start: 09/10/21 15:28 Freq: NEEDED Status: Discharge Protocol: Document 09/15/21 13:15 SP (Rec: 09/15/21 13:36 SP [id number]) Physical Therapy Current Condition Current Condition Evaluation Date 09/10/21 Treatment Diagnosis SBO s/p ileostomy revision and ex lap; difficulty in walking Onset Date 08/29/21 M3 PT-IP Subjective Start: 09/10/21 15:28 Freq: NEEDED Status: Discharge Protocol: Document 09/15/21 09:39 SP (Rec: 09/15/21 13:36 SP [id number]) Subjective Physical Therapy Visit Type Type Treatment Note Visit Start Time 09:39 Visit Stop Time 10:05 Total Visit Minutes 26 Notes Vitals: supine 121/61 HR 85 SaO2 93% on 1L Post mobiltiy: 124/61 Hr 100 95% on RA. 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 Patient Goals Pt stated going to rehab for further strengthening would be beneficial. Therapy Pain Assessment Pain When Pain Assessed During Mobility Pain Present Pain Present Pain Reported Location B plantar surface feet Intensity 7 Scale Used Numeric (0 - 10) Description Sharp,With Movement Pain Behaviors Facial Grimacing,Guarding, Wincing Pain Management Techniques Distraction,Modification of Treatment,Re-positioning, Timing of Activity with Medications Abdomen Intensity 3 Scale Used Numeric (0 - 10) Pain Behaviors Facial Grimacing Pain Management Techniques Distraction,Modification of Treatment,Re-positioning, Timing of Activity with Medications M4 PT-IP Mobility and Gait Start: 09/10/21 15:28 Freq: NEEDED Status: Discharge Protocol: Document 09/15/21 13:15 SP (Rec: 09/15/21 13:36 SP [id number]) PT-Bed Mobility Assessment Rolling Type of Rolling Roll to Right Level of Assist Standby Assistance Supine to Sit Supine to Sit Contact Guard Assistance, Minimal Assistance,1 Person Assistance,Bedrails Scooting Scooting to Edge of Bed Standby Assistance PT-Transfer Assessment Sit to and From Stand Sit to and from Stand Minimal Assistance,Moderate Assistance,1 Person Assistance ,Use of Upper Extremities Equipment Transfer Assistive Device Gait Belt,Front Wheeled Walker Orthotic/Prosthetic Devices or Brace: No Transfers Transfer Destination Chair Transfer Technique pt ambulated using FWW Transfer Ability Level of Assist Minimal Assistance,Moderate Assistance,1 Person Assistance ,Use of Upper Extremities Comments Mobility Comments Assisted done abdominal binder in supine, and readjusted in sitting. Provided education on LR R SBA, R SL>sit CG- min A HOB flat assist trunk righting . Scoot to EOB SBA. Sit>stand Min- Mod A with cues for UE push from bed. Ambulated around end of bed to chair approx 15 ft Min- Mod A for trunk support due to lateral lean at times R and L. Pt reports of R>L plantar surface of feet pain and didn' t have before surgery, R knee buckle due to pain in midstance Mod A recovery. Cued for quad facilitation w/ heavier trunk over BUE on FWW for safety stability. Pivot front chair, cued back up fully to chair assist as needed for FWW repositioning. Min A for slow descent into chair. Pt requested keeping legs down so can move them. Pt had call light and all needs in reach before left. Notifed nursing no chair alarm donned, nurse seated didn't need one. Gait Assessment Gait Gait Assistance Required: Minimum Assistance,Moderate Assistance,1 Person Assist Distance (Feet) 15 Able to Maintain Weight Bearing Status Yes During Gait Assistive Devices Assistive Device Gait Belt,Front Wheeled Walker Orthotic/Prosthetic Devices or Brace: No Gait Deviations General Gait Pattern Antalgic,Decreased Stride Length,Decreased Feet Clearance,Flexed Trunk,Lateral Trunk Lean,Narrow Based Gait, Step-to Gait Factors Limiting Gait Function Factors Limiting Gait Function Abnormal Tonal Influences, Decreased Activity Tolerance, Decreased Strength,Limited Range of Motion,Pain,Poor Balance,Poor Safety Awareness Comments Gait Comments See mobility comments. Stair Climbing Assessment Comments Stair Climbing Comments Unsafe to assess stairs due to decrease LE strength, will need complete 4 steps R HR for safe DC when able. PT-Balance Assessment Sitting Balance and Reactions Static Sitting Balance Ability Good Dynamic Sitting Balance Ability Good Standing Balance and Reactions Static Standing Balance Ability Fair Dynamic Standing Balance Ability Poor Device Used FWW M5 PT-IP Objective Assessments Start: 09/10/21 15:28 Freq: NEEDED Status: Discharge Protocol: Document 09/10/21 14:55 AB (Rec: 09/10/21 15:59 AB [id number]) Orientation Orientation/Cognition Level of Alertness Alert Orientation Name,Place,Situation Safety Awareness Understands Safety Issues Memory Description No Deficits Noted Gross Range of Motion Lower Extremity ROM Assessment Within Functional Limits Strength Lower Extremity Strength Hip 4-/5 Knee 4/5 Coordination Assessment Gross Coordination Gross Coordination WNL Sensation Assessment Sensation Gross Sensation WNL Muscle Tone Muscle Tone WNL Yes M6 PT-IP Treatment Start: 09/10/21 15:28 Freq: NEEDED Status: Discharge Protocol: Document 09/15/21 13:15 SP (Rec: 09/15/21 13:36 SP [id number]) Physical Therapy Treatment Education Education Provided Precautions,Safety Other Treatments Other Treatment Performed Abdominal binder fastened during mobility. M7 PT-IP Assessment and Plan Start: 09/10/21 15:28 Freq: NEEDED Status: Discharge Protocol: Document 09/15/21 13:15 SP (Rec: 09/15/21 13:36 SP [id number]) PT Summary Assessment and Plan Potential Rehabilitation Potential Good Status of Condition at Evaluation Evolving Summary Impairments Pain,ROM,Strength,Balance, Coordination,Bed Mobility, Transfers,Gait,Activity Tolerance Progress Towards Goals Progressing Toward Goals,Slow Progress due to Pain,Slow Progress due to Activity Tolerance Assessment Summary Pt continues to be limited by pain, but expressed some relief in symptoms following application of abdominal binder though has pain at plantar surface of B feet during WB. Min for bed mobility. Min-Mod A for sit<> stand and Min- Mod for ambulation using FWW. Pt will require SNF to improve activity tolerace and functional mobility independence. Goals Bed Mobility Goal Independent Transfer Goal Independent,Front Wheeled Walker Gait Goal Independent,Front Wheel Walker Gait Distance 200 Other Goals up/down 4 steps R rail ascending SBA improve ambulation without AD 300 ft SBA Days to Meet Goals 10 Frequency of Treatment Frequency Of Treatment Once a Day Treatment Plan Physical Therapy Treatment Plan Bed Mobility Training,Transfer Training,Gait Training, Therapeutic Exercise,Balance Retraining,Post Op Education, Discharge Planning,Hot or Cold Pack,Neuromuscular Re-ed, Coordination Retraining,Manual Therapy Other Recommendations and Next Treatment Bed mob, transfers, increase Focus ambulation distance w/ FWW and trial stairs when appropriate safe DC home. Precautions Abdominal Surgery Precautions Log Roll,Lifting Restrictions, Gait Belt above Incisional Area Recommendations To Nursing Amount of Assist Needed 1 Person Assist Discharge Recommendations PT Discharge Recommendations SNF Rehab Equipment Needed for Home Before FWW Discharge Transportation Needs at Discharge Wheelchair/Cabulance
--- NOTE | 2021-09-15 11:14 | OT.IP.TRT ---
Current Diagnoses Unspecified intestinal obstruction, unspecified as to partial versus complete obstruction (08/29/21) Encounter for follow-up examination after completed treatment for conditions other than malignant neoplasm (08/29/21) Surgery Performed Operation Date: 08/31/21 09:45 Actual Procedures p REVISION OF ILEOSTOMY(Right) - Jg Reyes MD Operation Date: 09/06/21 13:15 Actual Procedures p Resite ostomy to left lower quadrant - Jg Reyes MD Occupational Therapy Treatment Note M2 OT-IP Current Condition Start: 09/10/21 15:17 Freq: Status: Active Protocol: Document 09/10/21 15:18 [facility] (Rec: 09/10/21 15:36 [facility] [id number]) Occupational Therapy Current Condition Current Condition Evaluation Date 09/10/21 Treatment Diagnosis SBO, s/p exploratory laprotomy w/ reciting of ileostomy, decreased mobility Diagnosis Onset Date 08/29/21 Post Operative Precautions Abdominal Surgery Precautions Log Roll,Lifting Restrictions, Gait Belt above Incisional Area M3 OT- IP Subjective and Pain Start: 09/10/21 15:17 Freq: Status: Active Protocol: Document 09/15/21 10:38 [facility] (Rec: 09/15/21 11:31 [facility] [id number]) OT- Subjective Occupational Therapy Visit Type Type Treatment Note Visit Start Time 10:35 Visit Stop Time 11:14 Total Visit Minutes 39 Occupational Therapy Visit Comments Patient Comments Pt agreed to wash up at the sink. Patient/Caregiver Goals TO go to rehab to get better. OT Pain Assessment Pain When Pain Assessed During Mobility Pain Present Pain Present Pain Reported M4 OT- IP ADL's Start: 09/10/21 15:17 Freq: Status: Active Protocol: Document 09/15/21 10:38 [facility] (Rec: 09/15/21 11:31 [facility] [id number]) OT ADL-Grooming General Evaluation Grooming Ability Independent Areas Needing Assistance Retrieving/Set-up of Grooming Items Comments OT Grooming Comments Pt able to painter ordnance front of the sink with FWW. Pt at times heavily leans on the her arms on the counter due to decreased activity tolerance. OT ADL-Oral Care General Eval Oral Care Ability Independent OT ADL-Toileting Comments OT Toileting Comments Melara in place. M5 OT- IP IADL's Start: 09/10/21 15:17 Freq: Status: Active Protocol: Document 09/10/21 15:18 [facility] (Rec: 09/10/21 15:36 [facility] [id number]) OT-Instrumental Activities of Daily Living Deficits IADL Deficits Identified Deficits Home Safety Awareness Awareness of Need for Assistance at Home Good Awareness Ability to Problem Solve Emergency Able to Problem Solve Situations M6 OT- IP Functional Cognition Start: 09/10/21 15:17 Freq: Status: Active Protocol: Document 09/15/21 10:38 [facility] (Rec: 09/15/21 11:31 [facility] [id number]) Cognitive Factors Limiting Selfcare Function Cognitive Ability Level of Alertness Alert Patient Orientation Name,Place,Situation Attention Span Ability Capable of Focused Attention, Capable of Sustained Attention Ability to Follow Commands Able to Follow One Step Commands with Increased Time, Able to Follow One Step Commands with Repetition Safety Awareness Decreased Ability to Apply Precautions,Underestimates Need for Assistance Cognitive Comments Cognitive Assessment Comments Pt agreed to do log rolling today as explained to her she does not have an adjustable bed at home and best to try to do it the way she needs to at home. Pt needing step by step instructions as pt a bit groggy from pain medications. M7 OT- IP Mobility and Balance Start: 09/10/21 15:17 Freq: Status: Active Protocol: Document 09/15/21 10:38 [facility] (Rec: 09/15/21 11:31 [facility] [id number]) OT- Bed Mobility Assessment Sit to Supine Sit to Supine Assist Moderate Assistance,1 Person Assistance OT-Transfer Assessment Sit to and From Stand Sit to and from Stand Moderate Assistance,Maximum Assistance Transfers Transfer Ability Contact Guard Assistance Technique Transfer Destination Bed,Chair Devices Transfer Assistive Devices Gait Belt,Front Wheeled Walker Comments Mobility Comments Pending on height of surface , pt needing form mod to MAX A to stand to FWW. Assist to help get pt's legs back into bed. OT- Balance Assessment Sitting Balance and Reactions Static Sitting Balance Ability Good Dynamic Sitting Balance Ability Good Standing Balance and Reactions Static Standing Balance Ability Fair M9 OT- IP Assessment and Plan Start: 09/10/21 15:17 Freq: Status: Active Protocol: Document 09/15/21 10:38 [facility] (Rec: 09/15/21 11:31 [facility] [id number]) OT Summary Assessment and Plan Potential Analytic Complexity at Evaluation Moderate Summary OT Impairments Pain,Balance,Functional Mobility,Dressing,Toileting, Bathing,Toilet Transfers, Shower Transfers,Activity Tolerance Progress Towards Goals Progressing Toward Goals Assessment Summary Pt able to tolerate grooming while standing with FWW. Pt educated on what to expect in rehab ,to be sure to ask questions and also to let therapists be aware that she would like to have pain meds prior to being seen. Pt looking to go to skilled rehab soon. Goals Grooming Goal Independent Dressing Goal Independent Toileting Goal Independent Bathing Goal Independent Toilet Transfer Goal Independent Shower Transfer Goal Independent Patient/Caregiver Education Goal Demonstrate Post-Op Precautions Days to Meet Goals 20 Frequency of Treatment Frequency Of Treatment Once a Day Treatment Plan OT Treatment Plan ADL Training,Functional Mobility,Patient/Family Education,Discharge Planning Discharge Recommendations OT Discharge Recommendations SNF Rehab Transportation Needs at Discharge Wheelchair/Cabulance
--- NOTE | 2021-09-15 13:55 | CM.DPC ---
DCP/continued: Received notification from provider that patient medically stable to d/c to SNF today. Patient previously accepted at [facility]. PRICING ASSOCIATE placed call to March at [facility] and she reports that they can accept. Transport tentatively scheduled for 12:30pm. PRICING ASSOCIATE met with patient this AM. Patient aware and agreeable to d/c to [facility] today. RN to call patient's friend to notify her of d/c. No additional needs identified. P: [facility] today. [place]
== END 2021-09-15 12:54 | DRG 330 ==
LOC: ED 15:52 → AC 16:24
PROVIDERS: Specialist; Admitting Provider Surgery; Emergency Provider Emergency Medicine; PCP Student in an Organized Health Care Education/Training Program; Referring Provider Emergency Medicine; Visit Provider Surgery
PROC: 0DW807Z Revision of Autologous Tissue Substitute in Small Intestine, Open Approach (ICD-10-PCS; CPT 49000; principal; 2021-08-31 09:45)
PROC: 0DBB0ZZ Excision of Ileum, Open Approach (ICD-10-PCS; CPT 44140; principal; 2021-09-06 13:15)
DX: K43.3 Parastomal hernia with obstruction, without gangrene (principal); L03.311 Cellulitis of abdominal wall; N39.0 Urinary tract infection, site not specified; R33.9 Retention of urine, unspecified; R07.9 Chest pain, unspecified; I10 Essential (primary) hypertension; Z20.822 Contact with and (suspected) exposure to COVID-19; Z87.891 Personal history of nicotine dependence
CPT/HCPCS: 36415; 44312; 71045; 74018; 74177; 80048; 80053; 81001; 81003; 81015; 82040; 82550; 82553; 82962; 83605; 83690; 83735; 84100; 84134; 84145; 84478; 84484; 85025; 87086; 87635; 93005; 96361; 96374; 96375; 97116; 97162; 97166; 97530; 97535; 99222; 99284; C9803; A9270; B4189; C9290; J0330; J0360; J1100; J1170; J1642; J1650; J1815; J1885; J2060; J2250; J2270; J2274; J2405; J2543; J2704; J3010; J3480; Q9967

== ENCOUNTER → 2021-09-30 17:12 | Outpatient (CLI) | payer MEDICARE, SELFPAY ==
[2021-09-30 17:54] LABS: Add Manual Diff / Slide Review NO; Basophils Absolute Auto 100 /uL (0-100); Eosinophils Absolute Auto 200 /uL (0-450); Eosinophils Percent Auto 1.6 % (2-4); Hematocrit 36.1 % (36-46); Hemoglobin 12.3 g/dL (12.0-16.0); Lymphocytes Absolute Auto 2400 /uL (1100-4500); Lymphocytes Percent Auto 18.3 % (25-40); Mean Corpuscular HGB Conc 34.2 % (30-36); Mean Corpuscular Hemoglobin 30.9 PG (26-34); Mean Corpuscular Volume 90.5 fL (80-100); Monocytes Absolute Auto 1000 /uL (0-900); Monocytes Percent Auto 7.9 % (3-14); Neutrophils Absolute Auto 9400 /uL (1500-7000); Neutrophils Percent Auto 71.2 % (50-75); Platelet Count 513 X10^3/uL (150-400); Red Blood Cell Count 3.99 X10^6/uL (4.0-5.2); Red Cell Distribution Width 12.9 % (11.6-14.8); White Blood Cell Count 13.2 X10^3/uL (4.5-11.0)
[2021-09-30 18:47] LABS: Alanine Aminotransferase 140 IU/L (<35); Albumin 4.5 g/dL (3.5-5.0); Albumin Globulin Ratio 1.2 (1.0-2.8); Alkaline Phosphatase 137 U/L (38-126); Aspartate Aminotransferase 73 IU/L (14-36); BUN Creatinine Ratio 18.1 (6-22); Bilirubin Total 0.5 mg/dL (0.2-1.3); Blood Urea Nitrogen 21 mg/dL (7-17); Calcium 10.5 mg/dL (8.4-10.2); Carbon Dioxide 21 mmol/L (22-32); Chloride 99 mmol/L (98-107); Estimated Glomerular Filt Rate 45.9 mL/min (>60); Globulin 3.8 g/dL (1.7-4.1); Glucose 106 mg/dL (80-110); HEMOLYSIS < 15 (0-50); Sodium 130 mmol/L (137-145); Total Protein 8.3 g/dL (6.3-8.2)
== END ==
PROVIDERS: PCP Student in an Organized Health Care Education/Training Program; Referring Provider Obstetrics & Gynecology; Visit Provider Obstetrics & Gynecology
DX: K56.609 Unspecified intestinal obstruction, unspecified as to partial versus complete obstruction (principal)
CPT/HCPCS: 36415; 80053; 85025

== ENCOUNTER 2021-10-01 11:29 | Inpatient (IN) | payer MEDICARE, SELFPAY ==
[2021-10-01] VITALS (14 sets, daily range): BP systolic 117–153; BP diastolic 61–91; PULSE 75–96; RESP 14–20; TEMP 36.6–37.4; O2SAT 96–99; BMI 25.7
[2021-10-01 12:22] LABS: Add Manual Diff / Slide Review NO; Basophils Absolute Auto 100 /uL (0-100); Basophils Percent Auto 0.6 % (0-2); Eosinophils Absolute Auto 100 /uL (0-450); Eosinophils Percent Auto 1.1 % (2-4); Hematocrit 35.3 % (36-46); Hemoglobin 12.1 g/dL (12.0-16.0); Lymphocytes Absolute Auto 1500 /uL (1100-4500); Lymphocytes Percent Auto 12.7 % (25-40); Mean Corpuscular HGB Conc 34.3 % (30-36); Mean Corpuscular Hemoglobin 30.8 PG (26-34); Monocytes Absolute Auto 800 /uL (0-900); Monocytes Percent Auto 6.4 % (3-14); Neutrophils Absolute Auto 9500 /uL (1500-7000); Neutrophils Percent Auto 79.2 % (50-75); Platelet Count 416 X10^3/uL (150-400); Red Blood Cell Count 3.92 X10^6/uL (4.0-5.2); Red Cell Distribution Width 12.6 % (11.6-14.8)
[2021-10-01 12:27] LABS: Alanine Aminotransferase 176 IU/L (<35); Albumin 4.7 g/dL (3.5-5.0); Albumin Globulin Ratio 1.1 (1.0-2.8); Alkaline Phosphatase 148 U/L (38-126); Aspartate Aminotransferase 85 IU/L (14-36); Bilirubin Total 0.6 mg/dL (0.2-1.3); Blood Urea Nitrogen 19 mg/dL (7-17); Calcium 10.3 mg/dL (8.4-10.2); Carbon Dioxide 21 mmol/L (22-32); Chloride 98 mmol/L (98-107); Estimated Glomerular Filt Rate 47.8 mL/min (>60); Globulin 4.2 g/dL (1.7-4.1); Glucose 124 mg/dL (80-110); HEMOLYSIS < 15 (0-50); Lipase 89 U/L (23-300); Potassium 5.1 mmol/L (3.4-5.1); Sodium 130 mmol/L (137-145); Total Protein 8.9 g/dL (6.3-8.2)
--- NOTE | 2021-10-01 13:04 | DI.CT.S_ITS ---
PROCEDURE: CT ABDOMEN PELVIS W CON INDICATIONS: vomiting, has ileostomy TECHNIQUE: After the administration of intravenous contrast, axial sections acquired from the lung bases to the pubic symphysis. Coronal and sagittal reformats were performed. For radiation dose reduction, the following was used: automated exposure control, adjustment of mA and/or kV according to patient size. COMPARISON: [facility], CT, CT ABDOMEN PELVIS W CON, 09/01/2021, 4:44. FINDINGS: Image quality: Excellent. Lung bases: There is right basilar atelectasis.. Heart size is normal. Solid organs: Liver: The liver has no mass or intrahepatic biliary ductal dilatation. The portal vein and hepatic veins are patent. Biliary: The gallbladder has no gallstones, pericholecystic fluid, gallbladder wall thickening, or surrounding inflammatory change. Pancreas: The pancreas has no mass or ductal dilatation. There is no surrounding inflammation. Spleen: Normal size. There are no masses. Adrenals: No hypertrophy or nodules. Kidneys: No obstructive calculus or hydronephrosis. No solid mass. The right kidney a 5 cm simple cyst. Peritoneum and bowel: The distal esophagus and stomach are normal. Postoperative changes of colectomy are seen. No distended loops of small bowel or evidence of small-bowel obstruction. In the right lower quadrant there is a 2.4 x 1.8 cm fluid collection, possibly a small abscess. An ileostomy in the left lower quadrant is new compared to the prior CT on 09/01/2021. Nodes and vessels: No retroperitoneal or mesenteric adenopathy by size criteria. Aorta and inferior vena cava are normal in size. Miscellaneous: No abdominal wall mass or hernia. PELVIS: Genitourinary: The bladder has no wall thickening or mass. No bladder calcifications. Bones: Degenerative changes with no focal abnormality. No vertebral body compression fractures. IMPRESSION: 1. Since the prior CT on 09/01/2021 a right lower quadrant ileostomy has been taken down and there is a left lower quadrant ileostomy presently. 2. No evidence of small-bowel obstruction. 3. In the prior ileostomy site in the right lower quadrant there is a 1.8 x 2.3 cm rim enhancing fluid collection, possibly a small abscess or seroma and surrounding inflammation.. Dictated by: Martell Murguia M.D. on 10/01/2021 at 12:39 Approved by: Martell Murguia M.D. on 10/01/2021 at 12:47
[2021-10-01] MEDS: ONDANSETRON 4 MG/2 ML INJ IV (13:08)
[2021-10-01] MEDS: LORazepam 2 MG/ML INJ 0.5 MG IV (14:09)
[2021-10-01 14:22] LABS: Bacteria Urine Many (>30); RBC Urine 1-5/HPF (0-5/HPF); Squamous Epithelial Cell Urine 0-1 /HPF (0-5/HPF); WBC Urine 30-100/HPF (0-5/HPF)
--- NOTE | 2021-10-01 14:35 | ED_ITS ---
HPI - Nausea/Vomiting/Diarrhea General Chief complaint: Nausea/Vomiting/Diarrhea Stated complaint: ileostomy problem x7 days Time Seen by Provider: 10/01/21 13:04 Source: patient Mode of arrival: Wheelchair Limitations: no limitations History of Present Illness HPI Narrative: This is a 71-year-old female comes in with complaint of ileostomy problems for the last 7 days. She states she had an ileostomy she had been feeling great she left rehab and went to her friend's house after day she started feeling just ge nerally under the weather. She has slowly been worsening over time and sleeping more and more. She started having nausea and vomiting and diarrhea like output from her ileostomy for the last few days. She states she has not had increase in abdominal pain from her norm. She denies any fevers or chills. No chest pain or shortness of breath. She denies any dysuria urgency or frequency. She has not noticed any black or bloody stool. She states her ileostomy stool has been very liquidy. And she denies any other changes. Patient was in contact with her general surgeon who updated us prior to her arrival. She is on multiple medications for blood pressure, pain including gabapentin oxycodone. She has not been able to take these for the last several days. She states she is allergic to cephalexin and ketamine. Patient primary care is Dr. Ferrer. Related Data Previous Rx's Medication Instructions Recorded losartan 50 mg tablet 50 mg PO DAILY #90 tab 07/02/21 gabapentin 600 mg tablet 600 mg PO TID #270 tab 07/30/21 oxycodone-acetaminophen 10 mg-325 1 tab PO Q4H PRN #30 tab 09/14/21 mg tablet (Percocet) Allergies Allergy/AdvReac Type Severity Reaction Status Date / Time cephalexin [From Keflex] Allergy Mild Rash Verified 10/01/21 11:42 ketamine AdvReac Intermediate Hallucinati Verified 10/01/21 11:42 ng Review of Systems Review of Systems ROS Unobtainable: All systems reviewed & are unremarkable except as noted in HPI and below Patient History Medical History Lynn's esophagus (~2011) Carpal tunnel syndrome (~2002) Chicken pox Colon polyps (~1998) Familial adenomatous polyposis (~1998) Fibroids (~1979) GERD (gastroesophageal reflux disease) (~2011) Measles Mumps Osteoarthritis (~2011) Rotonda spotted fever (~2019) Rosacea (~2009) Rubella Surgical History Anesthesia History of colectomy (~2015) History of endoscopy (~2017) History of hysterectomy (~1991) Status post small bowel resection (~2019) Family History Father Colon cancer FAP (familial adenomatous polyposis) Mother History of heart disease Mental health problem Brother History of heart disease Grandmother History of heart disease Grandfather Drowned Grandmother Cancer Family/Other FAP (familial adenomatous polyposis) Social History household members: friend(s) Smoking Status: Former smoker alcohol intake: current Smoking Status: Former smoker alcohol intake frequency: holidays/special occasions only Substance Use Type: does not use Exam Narrative Exam Narrative: GENERAL: Alert and oriented x three, elderly female in mild distress. HEENT: Head normocephalic, atraumatic, EOMI, pupils reactive, face symmetric, moist mucous membranes NECK: Supple, full range of motion CARDIOVASCULAR: Regular rate and rhythm without murmurs, rubs or gallops. RESPIRATORY: Breath sounds equal bilaterally, no wheezes rales or rhonchi. ABDOMEN: Soft, nontender. Normoactive bowel sounds all 4 quadrants. No guarding or rebound, rigidity, no mass. Patient has a right-sided ileostomy with liquidy brown stool. No blood or melena appreciated. Patient is not distended. : No CVA tenderness EXTREMITIES: Normal range of motion, no swelling bilateral lower extremities. Neurovascularly intact NEUROLOGICAL: Cranial nerves II through XII grossly intact. Moving all extremities SKIN: Warm, dry, no petechiae, no rashes or lesions. 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) Stat 10/01/21 13:55 Urine Culture Stat Urine Microscopic Stat Acetaminophen (Acetaminophen 325 Mg Tablet) 650 mg PO Q6HR PRN PRN Reason: Fever/Mild Pain (1-3) Enoxaparin Sodium (Enoxaparin 40 Mg/0.4 Ml Syringe) 40 mg SUBCUT DAILY BLADE Gabapentin (Gabapentin 300 Mg Capsule) 600 mg PO TID BLADE Last Admin: 10/01/21 17:10 Dose: 600 mg Documented by: KARLA Sodium Chloride (Normal Saline 0.45%) 1,000 mls @ 130 mls/hr IV CONT BLADE Last Admin: 10/01/21 16:02 Dose: 130 mls/hr Documented by: DON Ciprofloxacin (Cipro) 400 mg in 200 mls @ 200 mls/hr IV Q12H BLADE Ibuprofen (Ibuprofen 600 Mg Tablet) 600 mg PO Q6HR PRN PRN Reason: Fever/Mild Pain (1-3) Naloxone HCl (Naloxone 0.4 Mg/Ml Vial) 0.2 mg IV Q2MIN PRN PRN Reason: Opiate Reversal Oxycodone/Acetaminophen (Oxycodone/Acetaminophen 5/325 Tablet) 1 tab PO Q6HR PRN PRN Reason: Pain, Moderate (4-6) Last Admin: 10/01/21 17:03 Dose: 1 tab Documented by: KARLA Discontinued Medications Ciprofloxacin (Cipro) 400 mg in 200 mls @ 200 mls/hr IV NOW ONE Stop: 10/01/21 15:37 Last Infusion: 10/01/21 15:27 Dose: 0 mls/hr Documented by: Admin: 10/01/21 14:44 Dose: 200 mls/hr Documented by: JAZZ Lorazepam (Lorazepam 2 Mg/Ml Inj) 0.5 mg IV NOW ONE Stop: 10/01/21 14:06 Last Admin: 10/01/21 14:09 Dose: 0.5 mg Documented by: COSME Morphine Sulfate (Morphine 4 Mg/Ml Inj) 4 mg IV NOW ONE Stop: 10/01/21 14:49 Last Admin: 10/01/21 15:06 Dose: 4 mg Documented by: ROBERTA Ondansetron HCl (Ondansetron 4 Mg/2 Ml Inj) 4 mg IV NOW ONE Stop: 10/01/21 13:05 Last Admin: 10/01/21 13:08 Dose: 4 mg Documented by: ROBERTA Consultations Consultation #1: Dr. Reyes, general surgery. Saw patient here in the department. He accepts for admission for vomiting, hyponatremia and dehydration. Suspected UTI discussed antibiotic options patient is allergic to cephalexin so was started on Cipro. He is not suspicious of bowel obstruction at this time. His CT imaging reviewed with the patient as well as myself. Plan for observation at this time Time: 14:30 Vital Signs Vital signs: Vital Signs - 8 hr 10/01/21 11:35 10/01/21 11:37 10/01/21 11:38 Temperature 99.3 F Pulse Rate 87 89 Respiratory Rate 14 Blood Pressure 141/76 H 141/76 H Pulse Oximetry 98 99 10/01/21 12:00 10/01/21 12:30 10/01/21 13:00 Temperature Pulse Rate 91 H 77 82 Respiratory Rate 18 Blood Pressure 152/70 H 136/66 142/69 H Pulse Oximetry 98 96 98 10/01/21 13:30 10/01/21 13:56 10/01/21 14:00 Temperature Pulse Rate 89 93 H 87 Respiratory Rate Blood Pressure 153/80 H 142/73 H Pulse Oximetry 98 97 97 10/01/21 14:30 Temperature Pulse Rate 95 H Respiratory Rate 20 Blood Pressure 133/91 H Pulse Oximetry 97 MDM - Nausea/Vomiting/Diarrhea Lab Data Result diagrams: 10/01/21 12:00 10/01/21 12:00 Labs: Lab Results 10/01/21 10/01/21 10/01/21 Range/Units 12:00 12:00 12:00 WBC 12.0 H (4.5-11.0) X10^3/uL RBC 3.92 L (4.0-5.2) X10^6/uL Hgb 12.1 (12.0-16.0) g/dL Hct 35.3 L (36-46) % MCV 90.0 (80-100) fL MCH 30.8 (26-34) PG MCHC 34.3 (30-36) % RDW 12.6 (11.6-14.8) % Plt Count 416 H (150-400) X10^3/uL Neut % (Auto) 79.2 H (50-75) % Lymph % (Auto) 12.7 L (25-40) % Evangeline % (Auto) 6.4 (3-14) % Eos % (Auto) 1.1 L (2-4) % Baso % (Auto) 0.6 (0-2) % Neut # (Auto) 9500 H (5218-8192) /uL Lymph # (Auto) 1500 (3966-9232) /uL Evangeline # (Auto) 800 (0-900) /uL Eos # (Auto) 100 (0-450) /uL Baso # (Auto) 100 (0-100) /uL Sodium 130 L (137-145) mmol/L Potassium 5.1 (3.4-5.1) mmol/L Chloride 98 (98-107) mmol/L Carbon Dioxide 21 L (22-32) mmol/L BUN 19 H (7-17) mg/dL Creatinine 1.12 H (0.52-1.04) mg/dL Estimated GFR 47.8 L (>60) mL/min BUN/Creatinine Ratio 17.0 (6-22) Glucose 124 H (80-110) mg/dL Calcium 10.3 H (8.4-10.2) mg/dL Phosphorus 3.8 (2.8-4.1) mg/dL Magnesium 1.7 (1.6-2.3) mg/dL Total Bilirubin 0.6 (0.2-1.3) mg/dL AST 85 H (14-36) IU/L ALT 176 H (<35) IU/L Alkaline Phosphatase 148 H (38-126) U/L Total Protein 8.9 H (6.3-8.2) g/dL Albumin 4.7 (3.5-5.0) g/dL Globulin 4.2 H (1.7-4.1) g/dL Albumin/Globulin Ratio 1.1 (1.0-2.8) Lipase 89 (23-300) U/L Urine RBC (0-5/HPF) Urine WBC (0-5/HPF) Ur Squamous Epith Cells (0-5/HPF) Urine Bacteria (None) Ur Culture Indicated? SARS-CoV-2 (PCR) (Negative) 10/01/21 10/01/21 Range/Units 13:49 13:55 WBC (4.5-11.0) X10^3/uL RBC (4.0-5.2) X10^6/uL Hgb (12.0-16.0) g/dL Hct (36-46) % MCV (80-100) fL MCH (26-34) PG MCHC (30-36) % RDW (11.6-14.8) % Plt Count (150-400) X10^3/uL Neut % (Auto) (50-75) % Lymph % (Auto) (25-40) % Evangeline % (Auto) (3-14) % Eos % (Auto) (2-4) % Baso % (Auto) (0-2) % Neut # (Auto) (0583-6688) /uL Lymph # (Auto) (6617-2562) /uL Evangeline # (Auto) (0-900) /uL Eos # (Auto) (0-450) /uL Baso # (Auto) (0-100) /uL Sodium (137-145) mmol/L Potassium (3.4-5.1) mmol/L Chloride (98-107) mmol/L Carbon Dioxide (22-32) mmol/L BUN (7-17) mg/dL Creatinine (0.52-1.04) mg/dL Estimated GFR (>60) mL/min BUN/Creatinine Ratio (6-22) Glucose (80-110) mg/dL Calcium (8.4-10.2) mg/dL Phosphorus (2.8-4.1) mg/dL Magnesium (1.6-2.3) mg/dL Total Bilirubin (0.2-1.3) mg/dL AST (14-36) IU/L ALT (<35) IU/L Alkaline Phosphatase (38-126) U/L Total Protein (6.3-8.2) g/dL Albumin (3.5-5.0) g/dL Globulin (1.7-4.1) g/dL Albumin/Globulin Ratio (1.0-2.8) Lipase (23-300) U/L Urine RBC 1-5/hpf D (0-5/HPF) Urine WBC 30-100/hpf H (0-5/HPF) Ur Squamous Epith Cells 0-1 /hpf (0-5/HPF) Urine Bacteria Many (>30) H (None) Ur Culture Indicated? Culture not indicate SARS-CoV-2 (PCR) Negative (Negative) Urine Dip Bedside Urine Glucose Negative Bedside Urine Bilirubin - Negative Bedside Urine Ketone - Negative Urine Specific [place] 1.015 Bedside Urine Occult Blood + Bedside Urine pH 6 Bedside Urine Protein +/- 15 Bedside Urine Urobilinogen - Negative Bedside Urine Nitrite - Negative Bedside Urine Leukocytes ++ [address] scan - abdomen/pelvis: Radiologist's Impression: [address] [address] [address] Scan Report Signed Patient: Hue Daigle MR#: [id number] : 1950 Acct:[id number] Age/Sex: 71 / F Date of Service: 10/01/21 Loc: ED Accession Number: [id number] ?? Procedure: CT abdomen pelvis w con Ordering Provider: Aspen Hunter D.O. PROCEDURE:? CT ABDOMEN PELVIS W CON ? INDICATIONS:? vomiting, has ileostomy ? TECHNIQUE:? After the administration of intravenous contrast, axial sections acquired from the lung bases to the pubic symphysis.? Coronal and sagittal reformats were performed.? For radiation dose reduction, the following was used:? automated exposure control, adjustment of mA and/or kV according to patient size.? ? COMPARISON:? [facility], CT, CT ABDOMEN PELVIS W CON, 09/01/2021, 4:44. ? FINDINGS: Image quality:? Excellent.? ? Lung bases:? There is right basilar atelectasis..? Heart size is normal. ? Solid organs:? Liver: The liver has no mass or intrahepatic biliary ductal dilatation. The portal vein and hepatic veins are patent. Biliary: The gallbladder has no gallstones, pericholecystic fluid, gallbladder wall thickening, or surrounding inflammatory change. Pancreas: The pancreas has no mass or ductal dilatation. There is no surrounding inflammation. Spleen: Normal size. There are no masses. Adrenals: No hypertrophy or nodules. Kidneys: No obstructive calculus or hydronephrosis.? No solid mass.? The right kidney a 5 cm simple cyst.? ? Peritoneum and bowel:? The distal esophagus and stomach are normal.? Postoperative changes of colectomy are seen.? No distended loops of small bowel or evidence of small-bowel obstruction.? In the right lower quadrant there is a 2.4 x 1.8 cm fluid collection, possibly a small abscess.? An ileostomy in the left lower quadrant is new compared to the prior CT on 09/01/2021. ? Nodes and vessels:? No retroperitoneal or mesenteric adenopathy by size criteria.? Aorta and inferior vena cava are normal in size.? ? Miscellaneous:? No abdominal wall mass or hernia. ? PELVIS:? Genitourinary:? The bladder has no wall thickening or mass. No bladder calcifications. ? Bones:? Degenerative changes with no focal abnormality.? No vertebral body compression fractures.? ? IMPRESSION:? 1. Since the prior CT on 09/01/2021 a right lower quadrant ileostomy has been taken down and there is a left lower quadrant ileostomy presently.? 2. No evidence of small-bowel obstruction. 3. In the prior ileostomy site in the right lower quadrant there is a 1.8 x 2.3 cm rim enhancing fluid collection, possibly a small abscess or seroma and surrounding inflammation..? ? ? Dictated by: Martell Murguia M.D. on 10/01/2021 at 12:39 ? ? Approved by: Martell Murguia M.D. on 10/01/2021 at 12:47?? ECG Data Attestation: I personally reviewed and interpreted this ECG as follows: Prior ECG tracings: available for review Interpretation: Sinus rhythm rate 81 TN 166 QRS 82 and QTC of 422. Q-wave in lead 3. No other acute ST elevation or depression. Patient has prior EKG from 09/05/2021. No acute new ST changes appreciated. MDM Narrative Medical decision making narrative: This is a 71-year-old female who comes in with nausea and vomiting, diarrhea from her ileostomy. No signs of obstruction on CT, there is a small amount of fluid which could possibly be seroma versus infection. Patient's labs do show hyponatremia she appears to have UTI with her urine sample although she has not had any urinary symptoms. She does have a leukocytosis, platelets are elevated with leftward shift. Does have acute kidney injury in comparison to prior from September 08. And her sodium is 130 with potassium of 5.1 and a BUN of 19. Glucose is 124. LFTs are elevated from prior visit on 09/08. Patient was seen by Dr. Reyes she was evaluated here in the department. Plan to cover from UTI perspective but keep for observation. Patient has responded to Zofran and Ativan from [facility]. She is supposed to be on oral pain medications and was given a dose of IV pain medication. Discharge Plan Departure Patient Disposition: Admitted as Observation Clinical Impression: Acute UTI, Vomiting, Hyponatremia Admit Date/Time: 10/01/21 14:43 Admit Provider: Jg Reyes
[2021-10-01] MEDS: CIPROFLOXACIN 400 MG/200 ML PIGGYBACK 200 MG IV (14:44)
[2021-10-01] MEDS: MORPHINE 4 MG/ML INJ IV (15:06)
--- NOTE | 2021-10-01 15:12 | PM.HP.1 ---
History of Present Illness History of Present Illness Date Patient Seen: 10/01/21 Time Patient Seen: 15:12 Chief complaint: Fatigue and early satiety Narrative: Zuly is a 71-year-old woman who was admitted with a small-bowel obstruction in August of this year. She had previously undergone a total colectomy with an end ileostomy and had had the ileostomy revised once prior. In August he she underwent a reciting of the ileostomy to the left lower quadrant due to obstruction. She recovered from this surgery and had been discharged to a [facility] facility and then to her friend's care. Over the past week she has developed worsening fatigue and oral intake. She reports that she feels hungry but just cannot seem to eat because she feels full as and she starts eating. She had labs drawn last night as an outpatient. Her white blood cell count was mildly elevated and her creatinine and electrolytes were arranged. She was instructed to come to the emergency room today. She reports that she feels no improvement since yesterday. In the ER here he had a CT scan which shows no evidence of a bowel obstruction or a significant abscess. There is a small fluid collection in the a right lower quadrant subcutaneous space which is expected given the prior surgery she had to remove the prolapsed ileostomy from that side. She also had a urinalysis in the ER today which was suggestive of a urinary tract infection here. She has been started on ciprofloxacin. Patient History Medical History Lynn's esophagus (~2011) Carpal tunnel syndrome (~2002) Chicken pox Colon polyps (~1998) Familial adenomatous polyposis (~1998) Fibroids (~1979) GERD (gastroesophageal reflux disease) (~2011) Measles Mumps Osteoarthritis (~2011) [place] spotted fever (~2019) Rosacea (~2009) Rubella Surgical History Anesthesia History of colectomy (~2015) History of endoscopy (~2017) History of hysterectomy (~1991) Status post small bowel resection (~2019) Family & Social History Family History Father Colon cancer FAP (familial adenomatous polyposis) Mother History of heart disease Mental health problem Brother History of heart disease Grandmother History of heart disease Grandfather Drowned Grandmother Cancer Family/Other FAP (familial adenomatous polyposis) Social History: household members none Safety & Behavioral: Feels Safe in Current Yes Environment Been Physically Hurt or No Threatened By a Person Tobacco & Substance use: Smoking Status Former smoker alcohol intake current alcohol intake frequency holiday/special occasion Substance Use Type does not use Meds Home Medications and Allergies Home Medications Medication Instructions Recorded Confirmed Type diphenhydramine HCl 25 mg tablet 25 mg PO BEDTIME 05/04/21 09/23/21 History (Benadryl Allergy) losartan 50 mg tablet 50 mg PO DAILY #90 tab 07/02/21 09/23/21 Rx gabapentin 600 mg tablet 600 mg PO TID #270 tab 07/30/21 09/23/21 Rx oxycodone-acetaminophen 10 mg-325 1 tab PO Q4H PRN #30 tab 09/14/21 09/23/21 Rx mg tablet (Percocet) Allergies Allergy/AdvReac Type Severity Reaction Status Date / Time cephalexin [From Keflex] Allergy Mild Rash Verified 10/01/21 11:42 ketamine AdvReac Intermediate Hallucinati Verified 10/01/21 11:42 ng Exam Vital Signs (past 8 hours): - 10/01/21 11:35 10/01/21 11:37 10/01/21 11:38 Temperature 99.3 F Pulse Rate 87 89 Respiratory Rate 14 Blood Pressure 141/76 H 141/76 H Pulse Oximetry 98 99 10/01/21 12:00 10/01/21 12:30 10/01/21 13:00 Temperature Pulse Rate 91 H 77 82 Respiratory Rate 18 Blood Pressure 152/70 H 136/66 142/69 H Pulse Oximetry 98 96 98 10/01/21 13:30 10/01/21 13:56 10/01/21 14:00 Temperature Pulse Rate 89 93 H 87 Respiratory Rate Blood Pressure 153/80 H 142/73 H Pulse Oximetry 98 97 97 10/01/21 14:30 Temperature Pulse Rate 95 H Respiratory Rate 20 Blood Pressure 133/91 H Pulse Oximetry 97 Oxygen Delivery Method Room Air Const General: lethargic Eyes General: appearance normal, both eyes and all related structures Resp Effort & Inspection: normal respiratory effort GI Other: Abdomen soft. Ileostomy appears viable. There is clear liquid but no stool in the ileostomy bag. Objective Labs Result Diagrams: 10/01/21 12:00 10/01/21 12:00 Labs: Laboratory Results - last 24 hr 10/01/21 10/01/21 10/01/21 12:00 12:00 13:55 WBC 12.0 H RBC 3.92 L Hgb 12.1 Hct 35.3 L MCV 90.0 MCH 30.8 MCHC 34.3 RDW 12.6 Plt Count 416 H Neut % (Auto) 79.2 H Lymph % (Auto) 12.7 L [place] % (Auto) 6.4 Eos % (Auto) 1.1 L Baso % (Auto) 0.6 Neut # (Auto) 9500 H Lymph # (Auto) 1500 [place] # (Auto) 800 Eos # (Auto) 100 Baso # (Auto) 100 Sodium 130 L Potassium 5.1 Chloride 98 Carbon Dioxide 21 L BUN 19 H Creatinine 1.12 H Estimated GFR 47.8 L BUN/Creatinine Ratio 17.0 Glucose 124 H Calcium 10.3 H Total Bilirubin 0.6 AST 85 H ALT 176 H Alkaline Phosphatase 148 H Total Protein 8.9 H Albumin 4.7 Globulin 4.2 H Albumin/Globulin Ratio 1.1 Lipase 89 Urine RBC 1-5/hpf D Urine WBC 30-100/hpf H Ur Squamous Epith Cells 0-1 /hpf Urine Bacteria Many (>30) H Ur Culture Indicated? Culture not indicate Assessment & Plan Assessment and plan (1) Acute UTI: Status: Acute Plan Suspect urinary tract infection leading to dehydration. Admit for IV antibiotics and IV fluids Replete electrolytes. Time Spent With Patient Critical Care time: I spent a total of [] minutes of critical care time on this patient's care today; this time is exclusive of procedural time.
[2021-10-01 15:27] LABS: COVID19 - ADMIT (NP swab/PCR) Negative (Negative)
[2021-10-01] MEDS: SODIUM CHLORIDE 0.45% 1,000 ML 130 ML IV ×2 (16:02→23:53)
[2021-10-01 16:21] LABS: Magnesium 1.7 mg/dL (1.6-2.3); Phosphorous 3.8 mg/dL (2.8-4.1)
[2021-10-01] MEDS: OXYCODONE/ACETAMINOPHEN 5/325 TABLET 1 TAB PO (17:03)
[2021-10-01] MEDS: GABAPENTIN 300 MG CAPSULE 600 MG PO ×2 (17:10→20:02)
--- NOTE | 2021-10-01 18:44 | PC.NURSE ---
Pt arrived to room 215 at approximately 1530. VSS, afebrile. She ambulates to BR with steady gait. Colostomy with minimal liquid output. she denies nausea except for initial transfer from ER bed to room. She attempts to eat about 10-25 % of dinner, no n/v afterwards. MG and phos add ons to lab (WNL), reported to MD, no changes will reassess in a.m. Abdominal pain 5/10 she reports climbing but a tolerable level is about 3/10. She is medicated per request with scheduled gabapentin and PRN percocet with good effect this evening. She reports feeling very tired and having not been able to sleep in the last couple of nights and feeling like she will sleep good tonight. Abdomen with old iliostomy site packed with guaze c/d/i, she states she changes daily. Midline healing incision from August, no s/sx of infection. iliostomy bag to LLQ. Mildly tender abdomen with +BS. 1/2 NS at 130 ml/hr IVF. Continuous monitoring.
[2021-10-02] MEDS: OXYCODONE/ACETAMINOPHEN 5/325 TABLET 1 TAB PO ×3 (00:56→19:48)
[2021-10-02] MEDS: CIPROFLOXACIN 400 MG/200 ML PIGGYBACK 200 MG IV ×2 (02:17→16:07)
[2021-10-02 02:40] VITALS: BP 109/71; PULSE 81; RESP 16; TEMP 36.5; O2SAT 95
[2021-10-02 04:59] LABS: Add Manual Diff / Slide Review NO; Basophils Absolute Auto 100 /uL (0-100); Basophils Percent Auto 1.3 % (0-2); Eosinophils Absolute Auto 200 /uL (0-450); Eosinophils Percent Auto 2.1 % (2-4); Hematocrit 32.5 % (36-46); Lymphocytes Absolute Auto 1900 /uL (1100-4500); Lymphocytes Percent Auto 17.6 % (25-40); Mean Corpuscular Hemoglobin 31.1 PG (26-34); Mean Corpuscular Volume 91.4 fL (80-100); Monocytes Absolute Auto 1100 /uL (0-900); Monocytes Percent Auto 9.9 % (3-14); Neutrophils Absolute Auto 7400 /uL (1500-7000); Neutrophils Percent Auto 69.1 % (50-75); Platelet Count 348 X10^3/uL (150-400); Red Blood Cell Count 3.55 X10^6/uL (4.0-5.2); Red Cell Distribution Width 12.7 % (11.6-14.8); White Blood Cell Count 10.7 X10^3/uL (4.5-11.0)
[2021-10-02 05:04] LABS: Chloride 99 mmol/L (98-107); HEMOLYSIS < 15 (0-50)
[2021-10-02 05:07] LABS: BUN Creatinine Ratio 13.5 (6-22); Blood Urea Nitrogen 13 mg/dL (7-17); Calcium 9.3 mg/dL (8.4-10.2); Carbon Dioxide 23 mmol/L (22-32); Estimated Glomerular Filt Rate 57.1 mL/min (>60); Glucose 116 mg/dL (80-110); Potassium 4.5 mmol/L (3.4-5.1); Sodium 129 mmol/L (137-145)
--- NOTE | 2021-10-02 08:41 | PC.NURSE ---
Addendum entered by Denise Patrick R.N. 10/02/21 17:03: Patient requested that her gabapentin be changed to 0900, 1500, and 0300 in the am. She refused her 0900 dose and asked for this around 1400. She was having some leg pain. This effective for her discomfort. Addendum entered by Denise Patrick R.N. 10/02/21 10:52: Patient complained of nausea, given zofran otc and helpful, she is showering now. Original Note: Assess- Patient is alert and oriented x3, she states that she has felt weak and had some reflux. She has a dressing to the r.side of her mid lower quadrant with and older illeostomy site that his packed and dressed, her midline is scabbed over and healing and she also has a newer illeostomy to the l.side of her mid lower quadrant with beefy red stoma putting out liquid stool. Patient is in the hospital with a uti. She denies pain at this time. Eating some breakfast and tolerating her ivf .
[2021-10-02] MEDS: MAGNESIUM CHLORIDE 64 MG TABLET 128 MG PO (09:01)
[2021-10-02] MEDS: ENOXAPARIN 40 MG/0.4 ML SYRINGE SUBCUT (09:01)
[2021-10-02] MEDS: SODIUM CHLORIDE 0.45% 1,000 ML 130 ML IV ×2 (09:02→18:52)
[2021-10-02 10:00] VITALS: BP 127/69; PULSE 78; RESP 16; TEMP 36.1; O2SAT 95
[2021-10-02] MEDS: ONDANSETRON 4 MG ODT SL (10:40)
--- NOTE | 2021-10-02 10:53 | CM.IDA ---
Initial DCP Assessment Note Pt is a 71 yo female, resident of [place], arrives w/fatigue and early satiety, suspected UTI w/dehydration. Patient admitted for IV abx and IVF PMH includes: admitted with a small-bowel obstruction in August of this year;previously undergone a total colectomy with an end ileostomy and had had the ileostomy revised once prior. underwent a reciting of the ileostomy to the left lower quadrant due to obstruction. Patient was admitted 08.29.21- 09.14.21. Patient DC 09.14.21 to [facility] and rehab and recently returned to a friend's home w/assist from friend PCP: eH Ferrer Payer: GARIMA Met w/patient this morning, introduced role. Patient states she plans to return to her friend's home upon DC and does not want to return to SNF. Patient states friend is available for assist as needed. Patient denies need for HH RN at this time. Patient has many questions for the surgeon when she sees him today No needs expected from DC planning team although will remain available in case this changes before DC. JERRY Bush Discharge Planning/Care Management CM Discharge Assessment Start: 10/02/21 10:48 Freq: Status: Active Protocol: Document 10/02/21 10:48 KAREN (Rec: 10/02/21 10:52 KAREN [id number]) Discharge Planning Assessment Assigned Roof Slater JERRY Cedillo DPOA/Assigned Designee Name Maddison Galan carlyle Contact Information [phone] Advance Directives? Yes Advance Directives on File No History Provided By Patient,Medical Record Prior Living Arrangements House Household Members friend(s) Type of transporation used prior to Drives own vehicle admit Independent with ADL's No: Needs some assist d/t deconditioning Is patient alert and oriented? Yes Needs Assistance With Meal Prep,Home Chores / Shopping Barriers to Discharge No Discharge Plan Home Transportation Arrangement Friend private auto Referrals Initiated None needed
--- NOTE | 2021-10-02 11:38 | P.PN_ITS ---
Subjective Subjective Date Patient Seen: 10/02/21 Time Patient Seen: 11:39 Interval history: Feeling better than at admission last night. No nausea or emesis overnight. Ileostomy is functioning Exam Vital Signs (past 8 hours): - 10/02/21 10:00 Temperature 97 F L Pulse Rate 78 Respiratory Rate 16 Blood Pressure 127/69 Pulse Oximetry 95 Oxygen Delivery Method Room Air Oxygen Flow Rate 0 Narrative Exam Narrative: General adult woman alert oriented no acute distress Abdomen soft nontender nondistended. Functioning ileostomy Objective Labs Result Diagrams: 10/02/21 04:40 10/02/21 04:40 Labs: Laboratory Results - last 24 hr 10/01/21 10/01/21 10/01/21 12:00 12:00 12:00 WBC 12.0 H RBC 3.92 L Hgb 12.1 Hct 35.3 L MCV 90.0 MCH 30.8 MCHC 34.3 RDW 12.6 Plt Count 416 H Neut % (Auto) 79.2 H Lymph % (Auto) 12.7 L [place] % (Auto) 6.4 Eos % (Auto) 1.1 L Baso % (Auto) 0.6 Neut # (Auto) 9500 H Lymph # (Auto) 1500 [place] # (Auto) 800 Eos # (Auto) 100 Baso # (Auto) 100 Sodium 130 L Potassium 5.1 Chloride 98 Carbon Dioxide 21 L BUN 19 H Creatinine 1.12 H Estimated GFR 47.8 L BUN/Creatinine Ratio 17.0 Glucose 124 H Calcium 10.3 H Phosphorus 3.8 Magnesium 1.7 Total Bilirubin 0.6 AST 85 H ALT 176 H Alkaline Phosphatase 148 H Total Protein 8.9 H Albumin 4.7 Globulin 4.2 H Albumin/Globulin Ratio 1.1 Lipase 89 Urine RBC Urine WBC Ur Squamous Epith Cells Urine Bacteria Ur Culture Indicated? SARS-CoV-2 (PCR) 10/01/21 10/01/21 10/02/21 13:49 13:55 04:40 WBC 10.7 RBC 3.55 L Hgb 11.0 L Hct 32.5 L MCV 91.4 MCH 31.1 MCHC 34.0 RDW 12.7 Plt Count 348 Neut % (Auto) 69.1 Lymph % (Auto) 17.6 L [place] % (Auto) 9.9 Eos % (Auto) 2.1 Baso % (Auto) 1.3 Neut # (Auto) 7400 H Lymph # (Auto) 1900 [place] # (Auto) 1100 H Eos # (Auto) 200 Baso # (Auto) 100 Sodium Potassium Chloride Carbon Dioxide BUN Creatinine Estimated GFR BUN/Creatinine Ratio Glucose Calcium Phosphorus Magnesium Total Bilirubin AST ALT Alkaline Phosphatase Total Protein Albumin Globulin Albumin/Globulin Ratio Lipase Urine RBC 1-5/hpf D Urine WBC 30-100/hpf H Ur Squamous Epith Cells 0-1 /hpf Urine Bacteria Many (>30) H Ur Culture Indicated? Culture not indicate SARS-CoV-2 (PCR) Negative 10/02/21 04:40 WBC RBC Hgb Hct MCV MCH MCHC RDW Plt Count Neut % (Auto) Lymph % (Auto) [place] % (Auto) Eos % (Auto) Baso % (Auto) Neut # (Auto) Lymph # (Auto) [place] # (Auto) Eos # (Auto) Baso # (Auto) Sodium 129 L Potassium 4.5 Chloride 99 Carbon Dioxide 23 BUN 13 Creatinine 0.96 Estimated GFR 57.1 L BUN/Creatinine Ratio 13.5 Glucose 116 H Calcium 9.3 Phosphorus Magnesium Total Bilirubin AST ALT Alkaline Phosphatase Total Protein Albumin Globulin Albumin/Globulin Ratio Lipase Urine RBC Urine WBC Ur Squamous Epith Cells Urine Bacteria Ur Culture Indicated? SARS-CoV-2 (PCR) [facility] Medical History Lynn's esophagus (~2011) Carpal tunnel syndrome (~2002) Chicken pox Colon polyps (~1998) Familial adenomatous polyposis (~1998) Fibroids (~1979) GERD (gastroesophageal reflux disease) (~2011) Measles Mumps Osteoarthritis (~2011) [place] spotted fever (~2019) Rosacea (~2009) Rubella Surgical History Anesthesia History of colectomy (~2015) History of endoscopy (~2017) History of hysterectomy (~1991) Status post small bowel resection (~2019) Family History Father Colon cancer FAP (familial adenomatous polyposis) Mother History of heart disease Mental health problem Brother History of heart disease Grandmother History of heart disease Grandfather Drowned Grandmother Cancer Family/Other FAP (familial adenomatous polyposis) Social History household members: friend(s) Smoking Status: Former smoker alcohol intake: current Assessment & Plan Assessment & Plan narrative: 71-year-old woman recent re sitting of ileostomy readmitted with dyhydration and UTI. -diet as tolerated -ciprofloxacin for presumed UTI. Follow-up culture Time Spent With Patient Critical Care time: I spent a total of [] minutes of critical care time on this patient's care today; this time is exclusive of procedural time. Quality VTE Deep Vein Thrombosis/Pulmonary Embolism Present on Admission: No
[2021-10-02 13:23] VITALS: BP 119/66; PULSE 83; RESP 16; TEMP 36.6; O2SAT 98
[2021-10-02] MEDS: GABAPENTIN 300 MG CAPSULE 600 MG PO (14:14)
[2021-10-02] MEDS: SODIUM CHLORIDE 0.9% FLUSH 10 ML IV (20:57)
[2021-10-02] MEDS: GABAPENTIN 600 MG TABLET PO (21:53)
[2021-10-02 22:00] VITALS: BP 120/68; PULSE 79; RESP 16; TEMP 36.6; O2SAT 98
[2021-10-03] VITALS (7 sets, daily range): BP systolic 105–130; BP diastolic 59–72; PULSE 70–75; RESP 16–20; TEMP 36–36.5; O2SAT 95–99
[2021-10-03] MEDS: CIPROFLOXACIN 400 MG/200 ML PIGGYBACK 200 MG IV ×2 (02:15→15:07)
[2021-10-03] MEDS: SODIUM CHLORIDE 0.45% 1,000 ML 130 ML IV ×3 (02:15→22:38)
[2021-10-03] MEDS: GABAPENTIN 600 MG TABLET PO ×3 (02:30→22:36)
[2021-10-03] MEDS: OXYCODONE/ACETAMINOPHEN 5/325 TABLET 1 TAB PO ×4 (03:42→22:36)
--- NOTE | 2021-10-03 07:53 | PC.NURSE ---
Addendum entered by Denise Patrick R.N. 10/03/21 17:38: Patient given her gabapentin at 1630 for leg pain. This has been helpful for her. She is tolerating some of her food and did par take in a walk earlier in the halls.. She denies nausea this shift and is resting comfortably. Addendum entered by Denise Patrick R.N. 10/03/21 16:16: Patient just given percocet for complaints of pain 05/18 to back. She then asked for gabapentin. This RN told her that she can have this at 1630. IVF infusing and patient is tolerating this well. Addendum entered by Denise Patrick R.N. 10/03/21 12:13: Patient took a walk around the hallways today, she is back to bed and eating her lunch. Patient has ivf infusing and tolerates this well. Original Note: Assess- Patient is asleep right now. She has an illeostomy that puts out brown liquid stool to her l.quadrant, and her stoma is beefy red. Patient also has an old illeostomy site that is being packed and dressed, patient is handling this herself. She is tolerating her ivf, will ask doctor if she can be heplocked today, patient does drink and eat some of her meals. Denies discomfort at this time.
[2021-10-03] MEDS: ENOXAPARIN 40 MG/0.4 ML SYRINGE SUBCUT (09:47)
--- NOTE | 2021-10-03 10:07 | P.PN_ITS ---
Subjective Subjective Date Patient Seen: 10/03/21 Time Patient Seen: 10:07 Interval history: Tolerating small amounts of food and liquid feels nauseous and quickly full. She is concerned about discharging home and being readmitted for dehydration Exam Vital Signs (past 8 hours): - 10/03/21 06:00 10/03/21 09:21 Temperature 97.3 F L 97.3 F L Pulse Rate 70 75 Respiratory Rate 18 18 Blood Pressure 107/59 L 110/60 Pulse Oximetry 97 99 Oxygen Delivery Method Room Air Oxygen Flow Rate 0 Narrative Exam Narrative: General adult female alert oriented no acute distress Abdomen soft nontender functional left-sided ileostomy Objective Labs Result Diagrams: 10/02/21 04:40 10/02/21 04:40 [facility] Medical History Lynn's esophagus (~2011) Carpal tunnel syndrome (~2002) Chicken pox Colon polyps (~1998) Familial adenomatous polyposis (~1998) Fibroids (~1979) GERD (gastroesophageal reflux disease) (~2011) Measles Mumps Osteoarthritis (~2011) [place] spotted fever (~2019) Rosacea (~2009) Rubella Surgical History Anesthesia History of colectomy (~2015) History of endoscopy (~2017) History of hysterectomy (~1991) Status post small bowel resection (~2019) Family History Father Colon cancer FAP (familial adenomatous polyposis) Mother History of heart disease Mental health problem Brother History of heart disease Grandmother History of heart disease Grandfather Drowned Grandmother Cancer Family/Other FAP (familial adenomatous polyposis) Social History household members: friend(s) Smoking Status: Former smoker alcohol intake: current Assessment & Plan Assessment & Plan narrative: 71-year-old woman recent receding of ileostomy repair readmitted for dehydration and a UTI. -continue UTI treatment with ciprofloxacin follow-up cultures -it is unclear as to why she is unable to tolerate more a diet and fluids. no evidence of bowel obstruction, at admission CT demonstrated no intra-abdominal abscess there was a small fluid collection. I am concerned that if we discharge her today that she will be readmitted shortly for her recurrent dehydration. Continue diet as tolerated and IV fluids today if no further progress then she may need a repeat of her CT abdomen pelvis to follow up on the fluid collection. Time Spent With Patient Critical Care time: I spent a total of [] minutes of critical care time on this patient's care today; this time is exclusive of procedural time. Quality VTE Deep Vein Thrombosis/Pulmonary Embolism Present on Admission: No
[2021-10-04] MEDS: CIPROFLOXACIN 400 MG/200 ML PIGGYBACK 200 MG IV ×2 (03:29→15:56)
[2021-10-04] MEDS: GABAPENTIN 600 MG TABLET PO ×2 (04:27→18:29)
[2021-10-04] MEDS: OXYCODONE/ACETAMINOPHEN 5/325 TABLET 1 TAB PO ×4 (04:27→21:52)
[2021-10-04 04:53] VITALS: BP 124/68; PULSE 78; RESP 18; TEMP 36.3; O2SAT 100
[2021-10-04] MEDS: SODIUM CHLORIDE 0.9% FLUSH 10 ML IV ×2 (08:33→21:53)
[2021-10-04] MEDS: ENOXAPARIN 40 MG/0.4 ML SYRINGE SUBCUT (08:33)
[2021-10-04 09:01] VITALS: BP 111/61; PULSE 71; RESP 16; TEMP 36.6; O2SAT 99
--- NOTE | 2021-10-04 11:04 | P.PN_ITS ---
Subjective Subjective Date Patient Seen: 10/04/21 Time Patient Seen: 11:04 Interval history: Zuly is feeling much better today. Appetite is back. She ate a full meal last night. Exam Vital Signs (past 8 hours): - 10/04/21 04:53 10/04/21 09:01 Temperature 97.4 F L 97.8 F Pulse Rate 78 71 Respiratory Rate 18 16 Blood Pressure 124/68 111/61 Pulse Oximetry 100 99 Oxygen Delivery Method Room Air Oxygen Flow Rate 0 Const General: comfortable and No acute distress Eyes General: appearance normal, both eyes and all related structures Resp Effort & Inspection: normal respiratory effort Objective Labs Result Diagrams: 10/02/21 04:40 10/02/21 04:40 [facility] Medical History Lynn's esophagus (~2011) Carpal tunnel syndrome (~2002) Chicken pox Colon polyps (~1998) Familial adenomatous polyposis (~1998) Fibroids (~1979) GERD (gastroesophageal reflux disease) (~2011) Measles Mumps Osteoarthritis (~2011) [place] spotted fever (~2019) Rosacea (~2009) Rubella Surgical History Anesthesia History of colectomy (~2015) History of endoscopy (~2017) History of hysterectomy (~1991) Status post small bowel resection (~2019) Family History Father Colon cancer FAP (familial adenomatous polyposis) Mother History of heart disease Mental health problem Brother History of heart disease Grandmother History of heart disease Grandfather Drowned Grandmother Cancer Family/Other FAP (familial adenomatous polyposis) Social History household members: friend(s) Smoking Status: Former smoker alcohol intake: current Assessment & Plan Assessment and plan (1) Acute UTI: Status: Acute Plan Doing well today. She appears to have recovered from her UTI. I suspect her decreased appetite and decreased bowel function were secondary to her UTI. Home today or tomorrow depending on how she feels later today. I will call in a prescription for her to take oral ciprofloxacin for 3 more days. Time Spent With Patient Critical Care time: I spent a total of [] minutes of critical care time on this patient's care today; this time is exclusive of procedural time. Quality VTE Deep Vein Thrombosis/Pulmonary Embolism Present on Admission: No
[2021-10-04 12:51] VITALS: BP 112/68; PULSE 75; RESP 16; TEMP 36.6; O2SAT 95
--- NOTE | 2021-10-04 15:21 | CM.DANOTE ---
DCP/continued: Reviewed chart. Per RN patient discharging home today. Patient ambulating I in room. Patient reports to nursing that she needs assistance with transport due to bad weather. RN in agreement to check with [employer]. RN reports patient in agreement to cover cost. [employer]CRAFT [employer]ESS ANALYST provided medical relief voucher to center medical specialist/Mary if needed. P: Home today. [place]
[2021-10-04 15:48] VITALS: BP 110/66; PULSE 77; RESP 18; TEMP 36.6; O2SAT 98
[2021-10-04 19:35] VITALS: BP 128/72; PULSE 86; RESP 18; TEMP 36.8; O2SAT 98
[2021-10-04 23:00] VITALS: BP 128/67; PULSE 76; RESP 18; TEMP 36.7; O2SAT 97
[2021-10-05] MEDS: GABAPENTIN 600 MG TABLET PO ×2 (00:46→06:31)
[2021-10-05] MEDS: CIPROFLOXACIN 400 MG/200 ML PIGGYBACK 200 MG IV (02:19)
--- NOTE | 2021-10-05 03:21 | PC.NURSE ---
patient is awaiting d/c to her friend's house in [place], due to snow and road conditions, there is a wait on the move. patient is a/o, voices needs. indep w/ mobility and ambulation w/ FWW. iliostomy has light brown liquid stool collected in bag. Dressing to RT side abdomen (*previous ostomy site) is CDI. patient reports she has plenty of supplies to care for this wound. patient voiced concerns about the weather in the morning for the transfer home. i hope we can just meet at my friends house. provided listening support and encouraged her to get some rest and talk w/ certified financial planner in the morning. patient agreed, and is resting comfortably w/ eyes closed.
[2021-10-05 05:02] VITALS: BP 119/68; PULSE 72; RESP 18; TEMP 36.2; O2SAT 97
[2021-10-05] MEDS: OXYCODONE/ACETAMINOPHEN 5/325 TABLET 1 TAB PO (06:31)
[2021-10-05 08:06] VITALS: BP 117/61; PULSE 76; RESP 16; TEMP 36; O2SAT 97
--- NOTE | 2021-10-05 09:52 | PC.NURSE ---
Addendum entered by Baltazar Loja R.N. 10/05/21 09:58: Picked up by friend, escorted out via wheelchair with all her belongings to home. Original Note: Spoke with Dr. Fletcher over the phone to verify that current orders are correct for discharge, order for discharge today to home received. Discharge instructions and home care handouts reviewed with patient, she states understanding and has no further questions or concerns. IV dc'd intact. Patient states she is planning to call her PCP to schedule a follow up appointment. Patient plans to slat pickler her prescription at [facility] on way home with her friend. Patient instructed to call her doctor if she has questions or concerns or new or worsening signs of infection.
--- NOTE | 2021-10-05 13:12 | CM.DPC ---
DCP/continued: Received notification that patient being picked up by her friend this AM. Patient unable to d/c yesterday due to no transportation and bad weather. Made attempt to get cab but unable to find agency open. P: D/C home today. [place]
--- NOTE | 2021-10-18 08:12 | PM.DS.1 ---
History of Present Illness History of Present Illness Chief complaint: Fatigue and early satiety Narrative: SBO Discharge Providers Provider Date of admission: 10/01/21 14:43 Discharge Date: 10/05/21 Primary care physician: He Ferrer MD Discharge provider: Traci Fletcher MD Exam Vital Signs (past 8 hours): Oxygen Delivery Method Room Air Oxygen Flow Rate 0 Narrative Exam Narrative: return of GI function, no SSI. Benign abd Objective Labs Result Diagrams: 10/02/21 04:40 10/02/21 04:40 [facility] Medical History Lynn's esophagus (~2011) Carpal tunnel syndrome (~2002) Chicken pox Colon polyps (~1998) Familial adenomatous polyposis (~1998) Fibroids (~1979) GERD (gastroesophageal reflux disease) (~2011) Measles Mumps Osteoarthritis (~2011) [place] spotted fever (~2019) Rosacea (~2009) Rubella Surgical History Anesthesia History of colectomy (~2015) History of endoscopy (~2017) History of hysterectomy (~1991) Status post small bowel resection (~2019) Family History Father Colon cancer FAP (familial adenomatous polyposis) Mother History of heart disease Mental health problem Brother History of heart disease Grandmother History of heart disease Grandfather Drowned Grandmother Cancer Family/Other FAP (familial adenomatous polyposis) Social History household members: friend(s) Smoking Status: Former smoker alcohol intake: current Discharge Assessment & Plan Assessment and Plan Assessment: Stable post op, no complications Plan of Treatment: Discharge to friends house Discharge Plan Discharge Plan Patient Disposition: Home Discharge orders & Medications Prescriptions: New ciprofloxacin [Cipro] 500 mg/5 mL suspension,microcapsule recon 500 mg PO BID Qty: 30 0RF Continued losartan 50 mg tablet 50 mg PO DAILY Qty: 90 2RF gabapentin 600 mg tablet 600 mg PO TID Qty: 270 3RF oxycodone-acetaminophen [Percocet] 10-325 mg tablet 1 tab PO Q4H PRN (Reason: pain) Qty: 30 0RF Medication counseling provided by Pharmacist: Yes Follow up/Referrals: He Ferrer MD [Primary Care Provider] - Visit Report/Discharge Packet Instructions: DI for Urinary Tract Infection (UTI) Discharge Data Primary Care Provider: He Ferrer Quality VTE Deep Vein Thrombosis/Pulmonary Embolism Present on Admission: No
== END 2021-10-05 09:58 | disposition home or self-care (01) | DRG 641 ==
LOC: ED 14:42 → AC 14:44
PROVIDERS: Admitting Provider Surgery; Emergency Provider Emergency Medicine; PCP Student in an Organized Health Care Education/Training Program; Referring Provider Emergency Medicine; Visit Provider Surgery
DX: E86.0 Dehydration (principal); N39.0 Urinary tract infection, site not specified; K56.609 Unspecified intestinal obstruction, unspecified as to partial versus complete obstruction; E87.1 Hypo-osmolality and hyponatremia; Z93.2 Ileostomy status; Z20.822 Contact with and (suspected) exposure to COVID-19; Z87.891 Personal history of nicotine dependence
CPT/HCPCS: 36415; 74177; 80048; 80053; 81003; 81015; 83690; 83735; 84100; 85025; 87077; 87086; 87186; 87635; 93005; 96365; 96375; 99221; 99231; 99284; C9803; J0744; J1650; J2060; J2270; J2405; J7050; Q9967

== ENCOUNTER → 2022-02-24 09:33 | Outpatient (CLI) | payer MEDICARE, SELFPAY ==
[2021-10-01 15:48] VITALS: BMI 25.7
[2022-02-24 11:09] LABS: Hematocrit 38.1 % (36-46); Mean Corpuscular HGB Conc 34.1 % (30-36); Mean Corpuscular Hemoglobin 31.7 PG (26-34); Mean Corpuscular Volume 92.9 fL (80-100); Platelet Count 242 X10^3/uL (150-400); Red Cell Distribution Width 12.7 % (11.6-14.8); White Blood Cell Count 5.3 X10^3/uL (4.5-11.0)
[2022-02-24 12:55] LABS: Folate > 20.0 ng/mL (2.76-20.0); Vitamin B12 Reflex MMA if <400 317 pg/mL (239-931)
[2022-02-24 18:05] LABS: Vitamin D 25 Hydroxy (D3) 38.8 ng/mL (30.0-100.0)
[2022-02-26 10:26] LABS: Methylmalonic Acid,Serum 149 nmol/L (0-378)
== END ==
PROVIDERS: PCP Student in an Organized Health Care Education/Training Program; Referring Provider Student in an Organized Health Care Education/Training Program; Visit Provider Student in an Organized Health Care Education/Training Program
DX: R41.3 Other amnesia (principal); H53.9 Unspecified visual disturbance; Z90.49 Acquired absence of other specified parts of digestive tract
CPT/HCPCS: 36415; 82306; 82607; 82746; 83921; 85027

== ENCOUNTER 2022-09-13 10:30 | Outpatient (RCR) | payer MEDICARE, SELFPAY ==
[2021-10-01 15:48] VITALS: BMI 25.7
--- NOTE | 2022-08-23 12:33 | ST.OP.ACL ---
Visit Care Team Role Provider Type He Ferrer MD Attending Provider Physician Family Provider Primary Care Provider Referring Provider Specialty: Internal Medicine Address: [address] [place] [address], [address], [address] Email: [email or web address] Adult Cognitive Linguistic Evaluation CUSTODIAL ENGINEER Adult Cognitive Linguistic Eval Start: 08/23/22 12:16 Freq: Status: Active Protocol: Document 08/23/22 12:16 ZS (Rec: 08/23/22 12:33 ZS [id number]) Adult Cognitive Linguistic Evaluation Session Time Visit Start Time 11:30 Visit Stop Time 12:15 Total Visit Minutes 45 Visit Information Visit Number Initial Evaluation Plan of Care Dates 08/23/2022 - 01/06/2023 Insurance Information Medicare Referral Referring Provider Dr. Ferrer Reason for Referral Word finding difficulty and memory issues following surgery Setting Assessment Location Outpatient Care Visit Type Note Type Initial evaluation Next Note Type Next Note Type Treatment Note Patient Information Identification Type Name Patient History Zuly is a 72-year old female referred to speech therapy for memory and word finding deficits following bowel obstruction surgery in August 2021. She reported brain fog in addition to forgetting where she placed items, writing things down to remember to do them 1 hour later, and word finding difficulty (e.g., not recalling names of plants she knows very well). Pt added balance issues often accompany brain fog. Prior medical history indicates prior opiod dependence, pain in legs and back, GERD, and childress's esophagus. 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 Subjective Patient Report Zuly arrived on time and agreed to participate in all assessment activities. Mental Status Alert,Responsive,Cooperative Formal Assessment Standardized Test/Screener Type Cognitive Linguistic Quick Test (CLQT) Administration Complete Results Results of the CLQT place Zuly's attention, memory, executive functions, language, clock drawing, and visuospatial skills WNL. Difficulty observed with second maze task, with pt tracing path through maze with eyes, then light pen wilber for first minute, then tracing path with darker pen through the maze. Additionally, pt exhibited significant difficulty with design generation task, as she generated 7/13 designs with 3 lines instead of 4 and when given verbal prompt, she identified and corrected 1 design, but did not correct the remaining designs. Pt reported all tasks required a high level of effort to complete. Both design generation and maze tasks require attention, executive function, and visuospatial skills. Given performance on clock drawing and symbol cancellation, visuospatial skills appear WNL. Pt exhibited excellent attention during story retell and generative naming tasks. Possible impairment in executive functions may be impacting performance on mazes and design generation. Recommend speech therapy to increase executive function skills and provide compensatory strategies for increased success in completing ADLs. Findings/Results Cognitive Function Within normal limits Impact on Functioning Activity Limits/Particip.Rest. Mild: General Tasks and Demands Interpersonal Interactions Community Prognosis Prognosis Good Based on Cognitive status,Duration of symptoms/severity,Time since onset Plan of Care Speech-Language Treatment Yes Frequency 1x per week Duration 45 minutes Patient/Caregiver Education Described results of evaluation,Patient expressed understanding of evaluation, Patient expressed agreement with goals and treatment plans ,Patient requires further education/training Short Term Goals 1. Pt will independently use internal strategies to improve task completion during a given task. 2. Pt will independently use external strategies to improve task completion during a given task. 3. Pt will participate in education regarding cognitive domains and impact of cognitive areas on memory. 4. Pt will independently use word finding strategies in 100 % of opportunities during 45 minute session. 5. Pt will complete HEP to carryover external and internal strategies to home environment, as reported by pt . Rug Underlay Machine Operator Goals Pt will report increased success with task completion of ADLs, independent use of strategies, and decreased word finding difficulty in a variety of contexts.
--- NOTE | 2022-08-23 12:34 | ST.OPPOC ---
Physical, Occupational & Speech Therapy At Visit Care Team Role Provider Type He Ferrer MD Attending Provider Physician Family Provider Primary Care Provider Referring Provider Address: [address] [place] [address], [address], [address] Speech Pathology Plan of Care Plan of Care Dates 08/23/2022 - 01/06/[address] Ferrer Patient History Zuly is a 72-year old female referred to speech therapy for memory and word finding deficits following bowel obstruction surgery in August 2021. She reported brain fog in addition to forgetting where she placed items, writing things down to remember to do them 1 hour later, and word finding difficulty (e.g., not recalling names of plants she knows very well). Pt added balance issues often accompany brain fog. Prior medical history indicates prior opiod dependence, pain in legs and back, GERD, and childress's esophagus. Short Term Goals 1. Pt will independently use internal strategies to improve task completion during a given task. 2. Pt will independently use external strategies to improve task completion during a given task. 3. Pt will participate in education regarding cognitive domains and impact of cognitive areas on memory. 4. Pt will independently use word finding strategies in 100% of opportunities during 45 minute session. 5. Pt will complete HEP to carryover external and internal strategies to home environment, as reported by pt. Sales Exec Goals Pt will report increased success with task completion of ADLs, independent use of strategies, and decreased word finding difficulty in a variety of contexts. Comment: Electronically Signed by: JERI Hirsch 08/23/22 2924 If you are in agreement with this Plan of Care, please return a signed and dated copy. I have reviewed this Plan of Care and certify that the skilled therapy services above are required to meet the patient?s needs. Physician Signature Date Printed Name and Credentials Clinical Instructor Signature Printed Name and Credentials
--- NOTE | 2022-08-30 11:33 | ST.OPTN ---
Visit Care Team Role Provider Type He Ferrer MD Attending Provider Physician Family Provider Primary Care Provider Referring Provider Address: [address] [place] [address], [address], [place], [address] INDUSTRIAL RECRUITER Treatment Note INDUSTRIAL RECRUITER Treatment Note Start: 08/30/22 11:22 Freq: Status: Active Protocol: Document 08/30/22 11:22 ZS (Rec: 08/30/22 11:33 ZS [id number]) Speech Pathology Treatment Note Session Time Visit Start Time 10:30 Visit Stop Time 11:20 Total Visit Minutes 50 Visit Information Visit Number 1 Plan of Care Dates 08/23/2022 - 01/06/2023 Insurance Information Medicare Setting Treatment Setting Outpatient Care Visit Type Note Type Treatment Note Next Note Type Next Note Type Treatment Note General Information Patient History Zuly is a 72-year old female referred to speech therapy for memory and word finding deficits following bowel obstruction surgery in August 2021. She reported brain fog in addition to forgetting where she placed items, writing things down to remember to do them 1 hour later, and word finding difficulty (e.g., not recalling names of plants she knows very well). Pt added balance issues often accompany brain fog. Prior medical history indicates prior opiod dependence, pain in legs and back, GERD, and childress's esophagus. Results of the CLQT place Zuly's attention, memory, executive functions, language, clock drawing, and visuospatial skills WNL. Difficulty observed with second maze task, with pt tracing path through maze with eyes, then light pen wilber for first minute, then tracing path with darker pen through the maze. Additionally, pt exhibited significant difficulty with design generation task, as she generated 7/13 designs with 3 lines instead of 4 and when given verbal prompt, she identified and corrected 1 design, but did not correct the remaining designs. Pt reported all tasks required a high level of effort to complete. Both design generation and maze tasks require attention, executive function, and visuospatial skills. Given performance on clock drawing and symbol cancellation, visuospatial skills appear WNL. Pt exhibited excellent attention during story retell and generative naming tasks. Possible impairment in executive functions may be impacting performance on mazes and design generation. Recommend speech therapy to increase executive function skills and provide compensatory strategies for increased success in completing ADLs. Subjective Identification Type Name Identification Reconciled With Medical Record Observations/Patient Presentation Zuly arrived on time and agreed to participate in all session activities. She reported she has been having chronic fatigue due to insomnia since her surgery. Zuly has been learning about local [employer] life and reported no difficulty in learning new information. She stated she has difficulty recalling old information (e.g ., plant names) and with short -term memory (e.g., placement of items in home). Chief Complaint(s) Cognitive Objective Short Term Goals 1. Pt will independently use internal strategies to improve task completion during a given task. 2. Pt will independently use external strategies to improve task completion during a given task. 3. Pt will participate in education regarding cognitive domains and impact of cognitive areas on memory. 4. Pt will independently use word finding strategies in 100 % of opportunities during 45 minute session. 5. Pt will complete HEP to carryover external and internal strategies to home environment, as reported by pt . Intermediate Goals Pt will report increased success with task completion of ADLs, independent use of strategies, and decreased word finding difficulty in a variety of contexts. Treatment Activities Reviewed results of CLQT. Discussed impact of fatigue and attention on cognitive skills. Discussed word finding difficulty and use of synonyms and descriptions to aid in finding words. Discussed intentional placement of items to help with recall. Practiced 1-back game and discussed card sorting for improved attention and memory. Discussed benefits of meditation on sleep and memory. Zuly expressed understanding and agreement with plan of care. She will practice 1-back and description of items to aid in recall as well as increasing her meditative practice. Assessment Assessment of Improvement Zuly is already using intentional item placement strategies at home to increase recall of item placement. She reported she is not finding items in odd areas (e.g., keys in the freezer) or having difficulty recalling familiar names. Provided education regarding memory related to normal aging and Zuly expressed understanding. Discussed word finding strategies and how they would apply to recalling plant names . Zuly equated this to mental filing system, which she indicated is helpful for her as she is a very visual person. Discussed use of 1- back game and card sorting tasks to improve attention and memory. Zuly reported engaging in focus meditation previously and noted improvement from this. She stated she has also engaged in mindfulness meditation to help with pain management, though this is not helpful while she is sleeping and her current insomnia is due to pain. Zuly to continue with meditation practice to help improve attention and memory. Provided education regarding differences in learning new information vs recalling information from long-term memory. Zuly was engaged and asked several questions to clarify her understanding. Reviewed with Patient Goals,Progress Being Made,Home Exercise Program Patient/Caregiver Understanding Excellent Plan Amount of Therapy Recommended 2-3 Months Frequency of Treatment Once a Week Length of Session 45 Minutes Therapeutic Contents Client Education,Cognitive- Linguistic Training,Home Exercise Program Provided Patient/Caregiver Instruction Home Exercise Program,Plan of Care,Questions/Concerns Therapy Recommendations Continue with Current Program
--- NOTE | 2022-09-06 11:08 | ST.OPTN ---
Visit Care Team Role Provider Type He Ferrer MD Attending Provider Physician Family Provider Primary Care Provider Referring Provider Address: [address] [place] [address], [address], [place], [address] FURNACE BUILDER Treatment Note FURNACE BUILDER Treatment Note Start: 08/30/22 11:22 Freq: Status: Active Protocol: Document 09/06/22 11:02 ZS (Rec: 09/06/22 11:08 ZS [id number]) Speech Pathology Treatment Note Session Time Visit Start Time 10:30 Visit Stop Time 11:00 Total Visit Minutes 30 Visit Information Visit Number 2 Plan of Care Dates 08/23/2022 - 01/06/2023 Insurance Information Medicare Setting Treatment Setting Outpatient Care Visit Type Note Type Treatment Note Next Note Type Next Note Type Treatment Note General Information Patient History Zuly is a 72-year old female referred to speech therapy for memory and word finding deficits following bowel obstruction surgery in August 2021. She reported brain fog in addition to forgetting where she placed items, writing things down to remember to do them 1 hour later, and word finding difficulty (e.g., not recalling names of plants she knows very well). Pt added balance issues often accompany brain fog. Prior medical history indicates prior opiod dependence, pain in legs and back, GERD, and childress's esophagus. Results of the CLQT place Zuly's attention, memory, executive functions, language, clock drawing, and visuospatial skills WNL. Difficulty observed with second maze task, with pt tracing path through maze with eyes, then light pen wilber for first minute, then tracing path with darker pen through the maze. Additionally, pt exhibited significant difficulty with design generation task, as she generated 7/13 designs with 3 lines instead of 4 and when given verbal prompt, she identified and corrected 1 design, but did not correct the remaining designs. Pt reported all tasks required a high level of effort to complete. Both design generation and maze tasks require attention, executive function, and visuospatial skills. Given performance on clock drawing and symbol cancellation, visuospatial skills appear WNL. Pt exhibited excellent attention during story retell and generative naming tasks. Possible impairment in executive functions may be impacting performance on mazes and design generation. Recommend speech therapy to increase executive function skills and provide compensatory strategies for increased success in completing ADLs. Subjective Identification Type Name Identification Reconciled With Medical Record Observations/Patient Presentation Zuly arrived on time and agreed to participate in all session activities. She reported she had not completed HEP as [place]. Pt stated she is not having trouble remembering information, just recalling it . Chief Complaint(s) Cognitive Objective Short Term Goals 1. Pt will independently use internal strategies to improve task completion during a given task. 2. Pt will independently use external strategies to improve task completion during a given task. 3. Pt will participate in education regarding cognitive domains and impact of cognitive areas on memory. 4. Pt will independently use word finding strategies in 100 % of opportunities during 45 minute session. 5. Pt will complete HEP to carryover external and internal strategies to home environment, as reported by pt . Jail Goals Pt will report increased success with task completion of ADLs, independent use of strategies, and decreased word finding difficulty in a variety of contexts. Treatment Activities Discussed impact of fatigue on cognitive skills. Provided education regarding neural connections and memory. Discussed creating multiple connections between information rather than drill practice of 1 element. Discussed process of therapy and what to expect regarding cognitive gains moving forward . Showed Zuly Lumosity and provided education on website/ david and games offered. Zuly expressed understanding and agreement with plan of care. She will try Lumosity for memory and attention training and description of items to aid in recall as well as increasing her meditative practice. Assessment Assessment of Improvement Zuly did not complete HEP and reported no changes in sleep, WFD, or recall of information since previous session. Provided more information regarding strategies, progress, and therapy expectations. Zuly was engaged and asked several questions to clarify her understanding. Reviewed with Patient Goals,Progress Being Made,Home Exercise Program Patient/Caregiver Understanding Excellent Plan Amount of Therapy Recommended 2-3 Months Frequency of Treatment Once a Week Length of Session 45 Minutes Therapeutic Contents Client Education,Cognitive- Linguistic Training,Home Exercise Program Provided Patient/Caregiver Instruction Home Exercise Program,Plan of Care,Questions/Concerns Therapy Recommendations Continue with Current Program
--- NOTE | 2022-09-13 11:11 | ST.OPTN ---
Visit Care Team Role Provider Type He Ferrer MD Attending Provider Physician Family Provider Primary Care Provider Referring Provider Address: [address] [place] [address], [address], [place], [address] PORTRAIT PHOTOGRAPHER Treatment Note PORTRAIT PHOTOGRAPHER Treatment Note Start: 08/30/22 11:22 Freq: Status: Active Protocol: Document 09/13/22 11:05 ZS (Rec: 09/13/22 11:11 ZS [id number]) Speech Pathology Treatment Note Session Time Visit Start Time 10:30 Visit Stop Time 11:00 Total Visit Minutes 30 Visit Information Visit Number 3 Plan of Care Dates 08/23/2022 - 01/06/2023 Insurance Information Medicare Setting Treatment Setting Outpatient Care Visit Type Note Type Treatment Note Next Note Type Next Note Type Discharge Summary General Information Patient History Zuly is a 72-year old female referred to speech therapy for memory and word finding deficits following bowel obstruction surgery in August 2021. She reported brain fog in addition to forgetting where she placed items, writing things down to remember to do them 1 hour later, and word finding difficulty (e.g., not recalling names of plants she knows very well). Pt added balance issues often accompany brain fog. Prior medical history indicates prior opiod dependence, pain in legs and back, GERD, and childress's esophagus. Results of the CLQT place Zuly's attention, memory, executive functions, language, clock drawing, and visuospatial skills WNL. Difficulty observed with second maze task, with pt tracing path through maze with eyes, then light pen wilber for first minute, then tracing path with darker pen through the maze. Additionally, pt exhibited significant difficulty with design generation task, as she generated 7/13 designs with 3 lines instead of 4 and when given verbal prompt, she identified and corrected 1 design, but did not correct the remaining designs. Pt reported all tasks required a high level of effort to complete. Both design generation and maze tasks require attention, executive function, and visuospatial skills. Given performance on clock drawing and symbol cancellation, visuospatial skills appear WNL. Pt exhibited excellent attention during story retell and generative naming tasks. Possible impairment in executive functions may be impacting performance on mazes and design generation. Recommend speech therapy to increase executive function skills and provide compensatory strategies for increased success in completing ADLs. Subjective Identification Type Name Identification Reconciled With Medical Record Observations/Patient Presentation Zuly arrived on time and agreed to participate in all session activities. She reported she had started her meditation practice, though is having difficulty finding time to meditate during the day. She added she had completed a medium difficulty Sudoku, which she had been previously unable to complete. Pt stated she had not started Lumosity yet. She added she is considering getting an MRI per PCP recommendations, but is concerned about getting another surgery given the deficits she experienced following the previous surgery . Chief Complaint(s) Cognitive Objective Short Term Goals 1. Pt will independently use internal strategies to improve task completion during a given task. 2. Pt will independently use external strategies to improve task completion during a given task. 3. Pt will participate in education regarding cognitive domains and impact of cognitive areas on memory. 4. Pt will independently use word finding strategies in 100 % of opportunities during 45 minute session. 5. Pt will complete HEP to carryover external and internal strategies to home environment, as reported by pt . [employer] Software Engineer Goals Pt will report increased success with task completion of ADLs, independent use of strategies, and decreased word finding difficulty in a variety of contexts. Treatment Activities Discussed impact of fatigue on cognitive skills. Troubleshooting regarding timing for meditation during the day. Discussed creating multiple connections between information rather than drill practice of 1 element. Discussed POC given independence with strategies. Zuly expressed understanding and agreement with plan of care. She will try Lumosity for memory and attention training and description of items to aid in recall as well as increasing her meditative practice. Assessment Assessment of Improvement Zuly completed HEP and reported improvements in sleep , WFD, and reduced incidences of poor recall of information since previous session. Provided more information regarding strategies, progress , and therapy expectations. Zuly was engaged and asked several questions to clarify her understanding. Cancelled appointment on 09/20, pt will have follow-up appointment on 09/27 and discharge to independent [facility] given independence with strategies and improvements noted since implementation. Reviewed with Patient Goals,Progress Being Made,Home Exercise Program Patient/Caregiver Understanding Excellent Plan Amount of Therapy Recommended 2-3 Months Frequency of Treatment Once a Week Length of Session 45 Minutes Therapeutic Contents Client Education,Cognitive- Linguistic Training,Home Exercise Program Provided Patient/Caregiver Instruction Home Exercise Program,Plan of Care,Questions/Concerns Therapy Recommendations Continue with Current Program
--- NOTE | 2022-11-29 13:48 | ST.OPDS ---
Visit Care Team Role Provider Type He Ferrer MD Attending Provider Physician Family Provider Primary Care Provider Referring Provider Address: [address] [place] [address], [address], [place], [address] DATA CENTER PROJECT MANAGER Treatment Note DATA CENTER PROJECT MANAGER Treatment Note Start: 08/30/22 11:22 Freq: Status: Active Protocol: Document 11/29/22 13:46 ZS (Rec: 11/29/22 13:48 ZS [id number]) Speech Pathology Treatment Note Visit Information Plan of Care Dates 08/23/2022 - 01/06/2023 Setting Treatment Setting Outpatient Care Visit Type Note Type Discharge Summary General Information Patient History Zuly is a 72-year old female referred to speech therapy for memory and word finding deficits following bowel obstruction surgery in August 2021. She reported brain fog in addition to forgetting where she placed items, writing things down to remember to do them 1 hour later, and word finding difficulty (e.g., not recalling names of plants she knows very well). Pt added balance issues often accompany brain fog. Prior medical history indicates prior opiod dependence, pain in legs and back, GERD, and childress's esophagus. Results of the CLQT place Zuly's attention, memory, executive functions, language, clock drawing, and visuospatial skills WNL. Difficulty observed with second maze task, with pt tracing path through maze with eyes, then light pen wilber for first minute, then tracing path with darker pen through the maze. Additionally, pt exhibited significant difficulty with design generation task, as she generated 7/13 designs with 3 lines instead of 4 and when given verbal prompt, she identified and corrected 1 design, but did not correct the remaining designs. Pt reported all tasks required a high level of effort to complete. Both design generation and maze tasks require attention, executive function, and visuospatial skills. Given performance on clock drawing and symbol cancellation, visuospatial skills appear WNL. Pt exhibited excellent attention during story retell and generative naming tasks. Possible impairment in executive functions may be impacting performance on mazes and design generation. Recommend speech therapy to increase executive function skills and provide compensatory strategies for increased success in completing ADLs. Subjective Chief Complaint(s) Cognitive Objective Short Term Goals 1. Pt will independently use internal strategies to improve task completion during a given task. 2. Pt will independently use external strategies to improve task completion during a given task. 3. Pt will participate in education regarding cognitive domains and impact of cognitive areas on memory. 4. Pt will independently use word finding strategies in 100 % of opportunities during 45 minute session. 5. Pt will complete HEP to carryover external and internal strategies to home environment, as reported by pt . Funding Analyst Goals Pt will report increased success with task completion of ADLs, independent use of strategies, and decreased word finding difficulty in a variety of contexts. Assessment Assessment of Improvement Pt was scheduled for follow-up appointment on 09/27, which was cancelled. Has not scheduled any follow-up appointments since. Discharging from speech therapy as pt was prepared for discharge and over 2 months have lapsed since last appointment. Plan Therapy Recommendations Discharge to Home Exercise Program,Discharge from Speech Therapy Reason for Discharge Goals met. Time since last appointment
== END 2022-11-30 13:53 ==
LOC: SP 10:30
PROVIDERS: Family Provider Student in an Organized Health Care Education/Training Program; PCP Student in an Organized Health Care Education/Training Program; Referring Provider Student in an Organized Health Care Education/Training Program; Visit Provider Student in an Organized Health Care Education/Training Program
DX: R41.3 Other amnesia (principal)
CPT/HCPCS: 96125; 97129; 97130

== ENCOUNTER → 2022-09-19 10:38 | Outpatient (CLI) | payer MEDICARE, SELFPAY ==
[2021-10-01 15:48] VITALS: BMI 25.7
--- NOTE | 2022-09-19 10:40 | DI.MRI.S_ITS ---
PROCEDURE: MR LUMBAR SPINE WO CON INDICATIONS: New leg parasthesia on chronic low back pathology TECHNIQUE: Noncontrast sagittal T1 spin echo and T2 fast echo, sagittal STIR, and T2 fast spin echo through the lumbar spine. In cases with scoliosis, additional coronal T2 fast spin echo may be performed. COMPARISON: [facility], CR, XR LUMBAR SPINE 2-3V, 05/04/2021, 11:03. FINDINGS: Image quality: Excellent. Alignment and Curvature: 5 lumbar type 2 bodies are present by plain film with rudimentary appearing ribs at T12. 9 mm of anterolisthesis of L4 on L5. Bone Marrow: Marrow is of normal overall signal. No acute vertebral body compression fractures. Mild reactive signal throughout the endplates of the lumbar spine. Spinal Cord: Conus medullaris terminates at the L1-L2 disc space level. There is a small lipoma of the filum terminalis which does not significantly contribute to canal, or foraminal stenosis. Visualized cord demonstrates otherwise normal signal and size. Paraspinous Soft Tissues: No paravertebral masses. T12-L1: Mild disc desiccation and diffuse disc bulge. Mild canal stenosis. Mild bilateral foraminal stenosis. L1-L2: Moderate disc desiccation. Mild diffuse disc bulge with superimposed left far lateral broad-based protrusion. Mild facet and ligamentum flavum hypertrophy. Mild canal stenosis. Mild left greater than right foraminal stenosis. L2-L3: Mild disc desiccation and diffuse disc bulge. Mild facet and ligamentum flavum hypertrophy. Mild canal stenosis. Mild bilateral foraminal stenosis. L3-L4: Moderate disc desiccation. Mild diffuse disc bulge. Mild facet and ligamentum flavum hypertrophy. Mild canal stenosis. Mild right greater than left foraminal stenosis. L4-L5: Moderate disc desiccation. Moderate diffuse disc bulge. Moderate facet and ligamentum flavum hypertrophy. Mild epidural lipomatosis. Severe canal stenosis. Moderate subarticular foraminal stenosis bilaterally. L5-S1: Mild disc desiccation and diffuse disc bulge. Mild bilateral facet hypertrophy. Mild canal stenosis. No foraminal stenosis. IMPRESSION: 1. Multilevel degenerative disc and facet disease, as well as ligamentum flavum hypertrophy and epidural lipomatosis. 2. Multilevel canal stenoses, worst at L4-L5 where there is severe canal stenosis. 3. Multilevel foraminal stenoses, worst at L4-L5 where there are moderate foraminal stenosis bilaterally. Dictated by: Zac Trivedi M.D. on 09/19/2022 at 11:52 Approved by: Zac Trivedi M.D. on 09/19/2022 at 11:56
== END ==
PROVIDERS: Family Provider Student in an Organized Health Care Education/Training Program; PCP Student in an Organized Health Care Education/Training Program; Referring Provider Student in an Organized Health Care Education/Training Program; Visit Provider Student in an Organized Health Care Education/Training Program
DX: M43.16 Spondylolisthesis, lumbar region (principal); M51.36 Other intervertebral disc degeneration, lumbar region; M51.37 Other intervertebral disc degeneration, lumbosacral region; M48.061 Spinal stenosis, lumbar region without neurogenic claudication; M48.07 Spinal stenosis, lumbosacral region; G25.81 Restless legs syndrome
CPT/HCPCS: 72148

== ENCOUNTER → 2022-10-18 08:48 | Outpatient (CLI) | payer MEDICARE, SELFPAY ==
[2021-10-01 15:48] VITALS: BMI 25.7
[2022-10-18 10:09] LABS: Add Manual Diff / Slide Review NO; Basophils Absolute Auto 0 /uL (0-100); Basophils Percent Auto 0.3 % (0-2); Eosinophils Absolute Auto 100 /uL (0-450); Eosinophils Percent Auto 0.6 % (2-4); Hematocrit 39.5 % (36-46); Hemoglobin 13.2 g/dL (12.0-16.0); Lymphocytes Absolute Auto 1700 /uL (1100-4500); Lymphocytes Percent Auto 18.3 % (25-40); Mean Corpuscular HGB Conc 33.4 % (30-36); Mean Corpuscular Hemoglobin 32.1 PG (26-34); Mean Corpuscular Volume 96.2 fL (80-100); Monocytes Absolute Auto 500 /uL (0-900); Monocytes Percent Auto 5.1 % (3-14); Neutrophils Absolute Auto 7100 /uL (1500-7000); Neutrophils Percent Auto 75.7 % (50-75); Platelet Count 262 X10^3/uL (150-400); Red Blood Cell Count 4.11 X10^6/uL (4.0-5.2); Red Cell Distribution Width 12.5 % (11.6-14.8); White Blood Cell Count 9.3 X10^3/uL (4.5-11.0)
[2022-10-18 10:26] LABS: Alanine Aminotransferase 36 IU/L (<35); Albumin 4.6 g/dL (3.5-5.0); Albumin Globulin Ratio 1.4 (1.0-2.8); Alkaline Phosphatase 70 U/L (38-126); Aspartate Aminotransferase 24 IU/L (14-36); BUN Creatinine Ratio 26.1 (6-22); Bilirubin Total 0.3 mg/dL (0.2-1.3); Blood Urea Nitrogen 23 mg/dL (7-17); Calcium 9.3 mg/dL (8.4-10.2); Carbon Dioxide 23 mmol/L (22-32); Chloride 104 mmol/L (98-107); Cholesterol 199 mg/dL (140-199); Estimated Glomerular Filt Rate > 60 mL/min (>60); Globulin 3.4 g/dL (1.7-4.1); Glucose 93 mg/dL (80-110); HDL Cholesterol 87 mg/dL (40-60); HEMOLYSIS < 15 (0-50); LDL Cholesterol Calculated 74 mg/dL (<100); Potassium 4.9 mmol/L (3.4-5.1); Sodium 134 mmol/L (137-145); Triglycerides 192 mg/dL (35-150)
[2022-10-18 10:59] LABS: TSH w/ Reflex to FT4 1.41 uIU/mL (0.47-4.68)
[2022-10-18 11:20] LABS: Hemoglobin A1C% w Est Avg Glu 5.7 % (4.0-6.0)
== END ==
PROVIDERS: Family Provider Student in an Organized Health Care Education/Training Program; PCP Student in an Organized Health Care Education/Training Program; Referring Provider Student in an Organized Health Care Education/Training Program; Visit Provider Student in an Organized Health Care Education/Training Program
DX: I10 Essential (primary) hypertension (principal); R73.9 Hyperglycemia, unspecified; E87.1 Hypo-osmolality and hyponatremia; K75.81 Nonalcoholic steatohepatitis (NASH); R42 Dizziness and giddiness; R63.1 Polydipsia
CPT/HCPCS: 36415; 80053; 80061; 83036; 84443; 85025

== ENCOUNTER → 2022-12-05 11:56 | Outpatient (CLI) | payer MEDICARE, SELFPAY ==
[2021-10-01 15:48] VITALS: BMI 25.7
--- NOTE | 2022-12-05 11:58 | DI.RAD.S_ITS ---
PROCEDURE: XR KNEE RT 3V INDICATIONS: acute on chronic right knee pain TECHNIQUE: 3 views of the knee were acquired. COMPARISON: None. FINDINGS: Bones: No fractures or dislocations. Tiny osteophyte at the lateral tibial plateau. No suspicious bony lesions. Soft tissues: No significant joint effusion. No suspicious soft tissue calcifications. IMPRESSION: Minimal degenerative change. If clinically indicated consider MRI for further evaluation. Dictated by: Valentin Lindsey M.D. on 12/05/2022 at 14:16 Approved by: Valentin Lindsey M.D. on 12/05/2022 at 14:26
== END ==
PROVIDERS: Family Provider Student in an Organized Health Care Education/Training Program; PCP Student in an Organized Health Care Education/Training Program; Referring Provider Student in an Organized Health Care Education/Training Program; Visit Provider Student in an Organized Health Care Education/Training Program
DX: M25.561 Pain in right knee (principal)
CPT/HCPCS: 73562

== ENCOUNTER → 2023-08-22 09:47 | Outpatient (CLI) | payer MEDICARE, SELFPAY ==
[2021-10-01 15:48] VITALS: BMI 25.7
[2023-08-22 11:21] LABS: Hematocrit 40.1 % (36-46); Hemoglobin 13.7 g/dL (12.0-16.0); Mean Corpuscular HGB Conc 34.2 % (30-36); Mean Corpuscular Hemoglobin 32.9 PG (26-34); Mean Corpuscular Volume 96.1 fL (80-100); Platelet Count 268 X10^3/uL (150-400); Red Blood Cell Count 4.18 X10^6/uL (4.0-5.2); Red Cell Distribution Width 12.9 % (11.6-14.8); White Blood Cell Count 6.1 X10^3/uL (4.5-11.0)
[2023-08-22 11:37] LABS: Alanine Aminotransferase 39 IU/L (<35); Albumin 4.7 g/dL (3.5-5.0); Albumin Globulin Ratio 1.3 (1.0-2.8); Alkaline Phosphatase 71 U/L (38-126); Aspartate Aminotransferase 30 IU/L (14-36); BUN Creatinine Ratio 27.8 (6-22); Bilirubin Total 0.6 mg/dL (0.2-1.3); Blood Urea Nitrogen 22 mg/dL (7-17); Calcium 9.7 mg/dL (8.4-10.2); Carbon Dioxide 27 mmol/L (22-32); Chloride 101 mmol/L (98-107); Cholesterol 220 mg/dL (140-199); Estimated Glomerular Filt Rate > 60 mL/min (>60); Globulin 3.5 g/dL (1.7-4.1); Glucose 96 mg/dL (80-110); HDL Cholesterol 84 mg/dL (40-60); HEMOLYSIS < 15 (0-50); LDL Cholesterol Calculated 80 mg/dL (<100); Potassium 4.2 mmol/L (3.4-5.1); Sodium 136 mmol/L (137-145); Total Protein 8.2 g/dL (6.3-8.2); Triglycerides 280 mg/dL (35-150)
[2023-08-22 12:21] LABS: Vitamin B12 823 pg/mL (239-931)
== END ==
PROVIDERS: Family Provider Student in an Organized Health Care Education/Training Program; PCP Internal Medicine; Referring Provider Internal Medicine; Visit Provider Internal Medicine
DX: E78.2 Mixed hyperlipidemia (principal); I10 Essential (primary) hypertension; K75.81 Nonalcoholic steatohepatitis (NASH); Z93.2 Ileostomy status
CPT/HCPCS: 36415; 80053; 80061; 82607; 84443; 85027

== ENCOUNTER → 2023-09-20 10:41 | Outpatient (CLI) | payer MEDICARE, SELFPAY ==
[2021-10-01 15:48] VITALS: BMI 25.7
--- NOTE | 2023-09-20 10:43 | DI.MG.S_ITS ---
BILATERAL DIGITAL SCREENING MAMMOGRAM 3D/2D WITH CAD: 09/20/2023 CLINICAL: Routine screening. Comparison is made to exams dated: 04/25/2013 mammogram, 12/15/2011 mammogram, and 08/17/2009 mammogram - [facility]. There are scattered areas of fibroglandular density in both breasts (category b / 25%-50% glandular tissue). Current study was also evaluated with a Computer Aided Detection (CAD) system. No significant masses, calcifications, or other findings are seen in either breast. There has been no significant interval change. IMPRESSION: NEGATIVE There is no mammographic evidence of malignancy. A 1 year screening mammogram is recommended. Based on the Tyrer Cuzick model (a risk assessment model) the patient's lifetime risk is 3.0% and her 10 year risk is 2.7%. According to the ACR, ACS, and NCCN guidelines, an annual breast MRI exam along with mammogram is recommended if the patient's lifetime risk is 20% or greater. This exam was interpreted at Station ID: [id number]. NOTE: For mammograms, a report in lay terms will be sent to the patient. Approximately 15% of breast malignancies will not be visualized mammographically. In the management of a palpable breast mass, a negative mammogram must not discourage biopsy of a clinically suspicious lesion. Electronically Signed By: Gregoria grossman/connor:09/20/2023 15:59:53 letter sent: Normal Exam ACR BI-RADS Category 1: Negative [id number]
== END ==
PROVIDERS: Family Provider Student in an Organized Health Care Education/Training Program; PCP Internal Medicine; Referring Provider Internal Medicine; Visit Provider Internal Medicine
DX: Z12.31 Encounter for screening mammogram for malignant neoplasm of breast (principal)
CPT/HCPCS: 77063; 77067

== ENCOUNTER → 2023-09-21 11:11 | Outpatient (CLI) | payer MEDICARE, SELFPAY ==
[2021-10-01 15:48] VITALS: BMI 25.7
--- NOTE | 2023-09-21 11:15 | DI.RAD.S_ITS ---
PROCEDURE: XR LUMBAR SPINE MIN 4V INDICATIONS: LOW BACK PAIN TECHNIQUE: 5 views of the lumbar spine were acquired, including bilateral oblique views. COMPARISON: [facility], CT, CT ABDOMEN PELVIS W CON, 10/01/2021, 13:18. [facility], CR, XR LUMBAR SPINE 2-3V, 05/04/2021, 11:03. [facility], MR, MR LUMBAR SPINE WO CON, 09/19/2022, 10:53. 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 5 [id number] vertebrae are present. There is grade 1 anterolisthesis of L4 on L5 and trace anterolisthesis of L3 on L4. No vertebral body compression fractures. No suspicious bony lesions. Degenerative disc disease is present, moderate at L4-L5, mild at other levels. Moderate facet arthropathy at L3-L4, L4-L5 and L5-S1. Soft tissues: Overlying bowel gas pattern is normal. No suspicious soft tissue calcifications. Oblique images: No pars defects. IMPRESSION: 1. No acute bony abnormality. 2. Moderate degenerative disc and facet disease in lumbar spine. 3. Grade 1 anterolisthesis of L4 on L5 and trace anterolisthesis of L3 on L4. Dictated by: Claus Gomez M.D. on 09/21/2023 at 13:12 Approved by: Claus Gomez M.D. on 09/21/2023 at 13:18
== END ==
PROVIDERS: Family Provider Student in an Organized Health Care Education/Training Program; PCP Internal Medicine; Referring Provider Anesthesiology; Visit Provider Anesthesiology
DX: M51.36 Other intervertebral disc degeneration, lumbar region (principal); M47.816 Spondylosis without myelopathy or radiculopathy, lumbar region; M47.817 Spondylosis without myelopathy or radiculopathy, lumbosacral region; M43.16 Spondylolisthesis, lumbar region; M48.062 Spinal stenosis, lumbar region with neurogenic claudication; M54.50 Low back pain, unspecified; F11.90 Opioid use, unspecified, uncomplicated; G89.29 Other chronic pain
CPT/HCPCS: 72110; 99214

== ENCOUNTER 2023-11-08 09:18 | Outpatient (CLI) | payer MEDICARE, SELFPAY ==
[2021-10-01 15:48] VITALS: BMI 25.7
[2023-11-08] VITALS (8 sets, daily range): BP systolic 133–169; BP diastolic 58–77; PULSE 66–77; RESP 9–17; TEMP 36.3; O2SAT 96–99
[2023-11-08] MEDS: MIDAZOLAM 2 MG/2 ML VIAL 1 MG IV (09:57)
--- NOTE | 2023-11-08 10:00 | DI.RAD.S_ITS ---
PROCEDURE: PAIN L/S FACET INJ/BLK 1ST DAVID INDICATIONS: SPONDYLOSIS COMPARISON: None. FINDINGS: Fluoroscopic spot filming was performed to verify placement of spinal needles at the bilateral L3, L4 and L5 level(s), as labeled on the films. Appropriate location(s) of the needle tip(s) was confirmed by injection of iodinated contrast. IMPRESSION: Intra procedural examination demonstrating appropriate positions of the needles. Dictated by: Luis Fernando Figueroa M.D. on 11/08/2023 at 11:26 Approved by: Luis Fernando Figueroa M.D. on 11/08/2023 at 11:27
[2023-11-08] MEDS: BUPIVACAINE 0.5% (PF) 10 ML VIAL 5 ML INJ (10:01)
[2023-11-08] MEDS: iopamidoL 15 ML VIAL 3 ML INJ (10:02)
--- NOTE | 2023-11-08 15:23 | P.PCN_ITS ---
Date/Time/Diagnoses Date of procedure: 11/08/23 Time of procedure: 10:00 Procedure Notes Physician: Ryan Hudson Total Fluoroscopy time (seconds): 16 Total sedation minutes: 13 Procedure in detail & Post-procedure care: Bilateral L3, 4, 5 Lumbar Medial Branch Blocks Indications: Zuly is presenting for treatment of lumbar spondylosis with low back pain. Preoperative diagnosis: Lumbar spondylosis Postoperative diagnosis: Same Pre-procedure History: Patient demonstrates today moderate to severe non- radicular back pain without neurologic deficit aggravated by hyperextension yes Back pain greater than leg pain? yes Patient today has tenderness over the suspected joint(s) yes History of post-traumatic injury? no Hypertrophic arthropathy yes Back pain associated with suspected motion segment instability, hypermobility or pseudoarthrosis no Focused Examination: Ax3 Mood and affect are normal Vital Signs: VSS ASA: 2 Consent: Following review of allergies and potential side effects/complications, including, but not necessarily limited to, infection, allergic reaction, local tissue breakdown, stroke, temporary or permanent nerve injury, paralysis, and possible , the patient indicated that they understood and agreed to proceed.? An informed consent document was signed by the patient, witnessed by a nurse and placed in the patient's chart.? Additionally, other treatment options including medications and physical therapy were reviewed with the patient. All questions were answered. Site was then marked. Anesthesia: After review of previous anesthetic history and IV conscious sedation, the patient was deemed safe to proceed with today's procedure with IV conscious sedation. IV sedation was accomplished with midazolam 1 mg administered by the RN after order by Dr. Hudson. Sedation was titrated to patient comfort during the course of the procedure. Patient remained responsive to all verbal commands. Position: Prone Monitoring: NIBP, Pulse oximetry, 3 lead EKG Needle used: 22 ga 3.5 inch spinal needle Contrast: Isovue 300M Injectate: 0.5% bupivacaine 1 mL per site Procedure: The patient was brought into the procedure room and positioned into the prone position. Skin was prepped with a Chloraprep solution, allowed to air dry, and then draped in sterile fashion.? The right L4-5 and L5-S1 facet joints were visually identified with fluoroscopy. Lidocaine 1% was used to anesthetize the skin over each target destination with a 25ga needle. A 22 ga, 3.5 inch spinal needle was advanced to the location of the medial branch at the junction of the superior articular process and the transverse process at L4,5 and the base of the SAP of the sacrum using intermittent fluoroscopy in the AP view. Isovue 300M contrast 0.2ml was injected at each level outlining the medial borders for each level and the base of the SAP of the sacrum in the AP and lateral views. There was no evidence of vascular or intrathecal uptake. The above injectate was slowly injected at each target destination. The left L4-5 and L5-S1 facet joints were visually identified with fluoroscopy. Lidocaine 1% was used to anesthetize the skin over each target destination with a 25ga needle. A 22 ga, 3.5 inch spinal needle was advanced to the location of the medial branch at the junction of the superior articular process and the transverse process at L4,5 and the base of the SAP of the sacrum using intermittent fluoroscopy in the AP view. Isovue 300M contrast 0.2ml was injected at each level outlining the medial borders for each level and the base of the SAP of the sacrum in the AP and lateral views. There was no evidence of vascular or intrathecal uptake. The above injectate was slowly injected at each target destination. At the end of the procedure the needles were withdrawn and Band- Aids were applied for a dressing. Post Procedure: Patient was taken to the recovery and monitored. The patient was provided a Pain Log to continue to record the patient's response to the target- specific procedure prior to the patient's follow-up visit with the referring physician. Patient was stable upon discharge. Detailed post procedure instructions were provided. Patient was asked to call in the event of worsening pain, fever, weakness, numbness or bladder or bowel incontinence. Based on the medial branches blocked today, if the patient meets insurance criteria for radiofrequency, the treatment should result in the denervation of the bilateral L4-5 and L5-S1 facet joint nerves. We would expect to denervate a total of 4 facets during the radiofrequency ablation.
== END 2023-11-08 10:27 | disposition home or self-care (01) ==
LOC: RAD 09:18
PROVIDERS: Family Provider Student in an Organized Health Care Education/Training Program; PCP Internal Medicine; Referring Provider Anesthesiology; Visit Provider Anesthesiology
DX: M47.816 Spondylosis without myelopathy or radiculopathy, lumbar region (principal)
CPT/HCPCS: 64493; 64494; 99152; J2250

== ENCOUNTER 2023-11-29 10:21 | Outpatient (CLI) | payer MEDICARE, SELFPAY ==
[2021-10-01 15:48] VITALS: BMI 25.7
[2023-11-29] VITALS (7 sets, daily range): BP systolic 122–159; BP diastolic 56–80; PULSE 74–80; RESP 15–20; TEMP 36.4; O2SAT 95–100
--- NOTE | 2023-11-29 11:00 | DI.RAD.S_ITS ---
PROCEDURE: PAIN L/S FACET INJ/BLK 1ST DAVID INDICATIONS: LUMBAR SPONDYLOSIS COMPARISON: [facility], , PAIN L/S FACET INJ/BLK 1ST DAVID, 11/08/2023, 10:59. FINDINGS: Fluoroscopic spot filming was performed to verify placement of spinal needles at the bilateral L3, L4, and L5 levels, as labeled on the films. Appropriate locations of the needle tips were confirmed by injection of iodinated contrast. IMPRESSION: Intraprocedural examination demonstrates appropriate needle positioning. Approved by: Garth Gonsalez M.D. on 11/29/2023 at 20:32
[2023-11-29] MEDS: MIDAZOLAM 2 MG/2 ML VIAL IV (11:18)
[2023-11-29] MEDS: LIDOCAINE 2% INJ SDV 5ML 10 ML INJ (11:20)
[2023-11-29] MEDS: iopamidoL 15 ML VIAL 3 ML INJ (11:20)
--- NOTE | 2023-11-29 11:33 | P.PCN_ITS ---
Date/Time/Diagnoses Date of procedure: 11/29/23 Time of procedure: 11:00 Procedure Notes Physician: Ryan Hudson Total Fluoroscopy time (seconds): 25 Total sedation minutes: 11 Procedure in detail & Post-procedure care: Bilateral L3, 4, 5 Lumbar Medial Branch Blocks Indications: Zuly is presenting for treatment of lumbar spondylosis with low back pain. Preoperative diagnosis: Lumbar spondylosis Postoperative diagnosis: Same Pre-procedure History: Patient demonstrates today moderate to severe non- radicular back pain without neurologic deficit aggravated by hyperextension yes Back pain greater than leg pain? yes Patient today has tenderness over the suspected joint(s) yes History of post-traumatic injury? no Hypertrophic arthropathy yes Back pain associated with suspected motion segment instability, hypermobility or pseudoarthrosis no Focused Examination: Ax3 Mood and affect are normal Vital Signs: VSS ASA: 2 Consent: Following review of allergies and potential side effects/complications, including, but not necessarily limited to, infection, allergic reaction, local tissue breakdown, stroke, temporary or permanent nerve injury, paralysis, and possible , the patient indicated that they understood and agreed to proceed.? An informed consent document was signed by the patient, witnessed by a nurse and placed in the patient's chart.? Additionally, other treatment options including medications and physical therapy were reviewed with the patient. All questions were answered. Site was then marked. Anesthesia: After review of previous anesthetic history and IV conscious sedation, the patient was deemed safe to proceed with today's procedure with IV conscious sedation. IV sedation was accomplished with midazolam 2 mg administered by the RN after order by Dr. Hudson. Sedation was titrated to patient comfort during the course of the procedure. Patient remained responsive to all verbal commands. Position: Prone Monitoring: NIBP, Pulse oximetry, 3 lead EKG Needle used: 22 ga 3.5 inch spinal needle Contrast: Isovue 300M Injectate: 2% lidocaine 1 mL per site Procedure: The patient was brought into the procedure room and positioned into the prone position. Skin was prepped with a Chloraprep solution, allowed to air dry, and then draped in sterile fashion.? The right L4-5 and L5-S1 facet joints were visually identified with fluoroscopy. Lidocaine 1% was used to anesthetize the skin over each target destination with a 25ga needle. A 22 ga, 3.5 inch spinal needle was advanced to the location of the medial branch at the junction of the superior articular process and the transverse process at L4,5 and the base of the SAP of the sacrum using intermittent fluoroscopy in the AP view. Isovue 300M contrast 0.2ml was injected at each level outlining the medial borders for each level and the base of the SAP of the sacrum in the AP and lateral views. There was no evidence of vascular or intrathecal uptake. The above injectate was slowly injected at each target destination. The left L4-5 and L5-S1 facet joints were visually identified with fluoroscopy. Lidocaine 1% was used to anesthetize the skin over each target destination with a 25ga needle. A 22 ga, 3.5 inch spinal needle was advanced to the location of the medial branch at the junction of the superior articular process and the transverse process at L4,5 and the base of the SAP of the sacrum using intermittent fluoroscopy in the AP view. Isovue 300M contrast 0.2ml was injected at each level outlining the medial borders for each level and the base of the SAP of the sacrum in the AP and lateral views. There was no evidence of vascular or intrathecal uptake. The above injectate was slowly injected at each target destination. At the end of the procedure the needles were withdrawn and Band- Aids were applied for a dressing. Post Procedure: Patient was taken to the recovery and monitored. The patient was provided a Pain Log to continue to record the patient's response to the target- specific procedure prior to the patient's follow-up visit with the referring physician. Patient was stable upon discharge. Detailed post procedure instructions were provided. Patient was asked to call in the event of worsening pain, fever, weakness, numbness or bladder or bowel incontinence. Based on the medial branches blocked today, if the patient meets insurance criteria for radiofrequency, the treatment should result in the denervation of the bilateral L4-5 and L5-S1 facet joint nerves. We would expect to denervate a total of 4 facets during the radiofrequency ablation.
== END 2023-11-29 11:51 | disposition home or self-care (01) ==
LOC: RAD 10:22
PROVIDERS: Family Provider Student in an Organized Health Care Education/Training Program; PCP Internal Medicine; Referring Provider Anesthesiology; Visit Provider Anesthesiology
DX: M47.816 Spondylosis without myelopathy or radiculopathy, lumbar region (principal)
CPT/HCPCS: 64493; 64494; 99152; J2250

== ENCOUNTER 2024-01-03 12:35 | Outpatient (CLI) | payer MEDICARE, SELFPAY ==
[2021-10-01 15:48] VITALS: BMI 25.7
[2024-01-03] VITALS (11 sets, daily range): BP systolic 124–171; BP diastolic 61–85; PULSE 67–79; RESP 11–21; TEMP 36.5; O2SAT 99–100
--- NOTE | 2024-01-03 13:30 | DI.RAD.S_ITS ---
PROCEDURE: PAIN L/S MED/LAT N RFA BILAT INDICATIONS: spondylosis COMPARISON: [facility], CR, XR LUMBAR SPINE MIN 4V, 09/21/2023, 11:17. FINDINGS: Fluoroscopic spot filming was performed to verify placement of spinal needles at the lumbar spine level(s), as labeled on the films. Appropriate location(s) of the needle tip(s) was confirmed by injection of iodinated contrast. IMPRESSION: Fluoroscopy guidance for pain management. Dictated by: Claus Gomez M.D. on 01/04/2024 at 9:21 Approved by: Claus Gomez M.D. on 01/04/2024 at 9:21
[2024-01-03] MEDS: MIDAZOLAM 2 MG/2 ML VIAL IV (13:44)
--- NOTE | 2024-01-03 13:45 | PC.NURSE ---
Patient has stoma to LLQ, was assisted with positioning on table, pillow placed under hips to offload pressure on stoma.
[2024-01-03] MEDS: DEXAMETHASONE 10 MG/ML VIAL INJ (13:47)
[2024-01-03] MEDS: BUPIVACAINE 0.5% (PF) 10 ML VIAL 5 ML INJ (13:47)
[2024-01-03] MEDS: LIDOCAINE 2% INJ SDV 5ML 10 ML INJ (13:48)
--- NOTE | 2024-01-03 16:47 | P.PCN_ITS ---
Date/Time/Diagnoses Date of procedure: 01/03/24 Time of procedure: 13:30 Procedure Notes Physician: Ryan Hudson Total Fluoroscopy time (seconds): 26 Total sedation minutes: 35 Procedure in detail & Post-procedure care: Bilateral L3, 4, 5 Lumbar Medial Branch Radio Frequency Ablation Indications: Zuly presents for treatment of lumbar spondylosis with low back pain. Preoperative diagnosis: Lumbar spondylosis Postoperative diagnosis: Same Focused Examination: Ax3 Mood and affect are normal Vital Signs: VSS ASA: 2 Consent: Following review of allergies and potential side effects/complications, including, but not necessarily limited to, infection, allergic reaction, local tissue breakdown, stroke, temporary or permanent nerve injury, paralysis, and possible , the patient indicated that they understood and agreed to proceed.? An informed consent document was signed by the patient, witnessed by a nurse and placed in the patient's chart.? Additionally, other treatment options including medications and physical therapy were reviewed with the patient. All questions were answered. Site was then marked. Position: Prone Monitoring: NIBP, Pulse oximetry, 3 lead EKG Needle used: 18 guage, 100 mm, 10 mm active tip Anesthesia: Local with IV sedation. After review of previous anesthetic history and IV conscious sedation, the patient was deemed safe to proceed with today's procedure with IV conscious sedation. IV sedation was accomplished with midazolam 2 mg administered by the RN after order by Dr. Hudson. Sedation was titrated to patient comfort during the course of the procedure. Patient remained responsive to all verbal commands. Procedure: The patient was brought into the procedure room and positioned into the prone position. Skin was prepped with a Chloraprep solution, allowed to air dry, and then draped in sterile fashion.? The right L4-5 and L5-S1 facet joints were visually identified with fluoroscopy. Lidocaine 1% was used to anesthetize the skin over each target destination with a 25ga needle. An 18 ga, 100 mm RFA needle with a 10 mm active tip was advanced to the location of the medial branch at the junction of the superior articular process and the transverse process at L4,5 and the base of the SAP of the sacrum using intermittent fluoroscopy in the oblique view with caudal tilt. AP and lateral radiographs were taken to confirm proper needle placement. No paresthesias were noted. The stylet was removed and the radiofrequency probe was inserted through the cannula. Each level was individually tested.? Motor stimulation up to 2V elicited multifidus twitching in the lumbar spine. There was no motor stimulation in the lower extremities. After negative aspiration, 1ml of 2% lidocaine was injected at each of the levels and radiofrequency denervation carried out using 80 degrees Celsius for 90 seconds. The needles were then rotated 90 degrees and a second ablation was performed at 80 degrees Celsius for 90 seconds. Next, the left L4-5 and L5-S1 facet joints were visually identified with fluoroscopy. Lidocaine 1% was used to anesthetize the skin over each target destination with a 25ga needle. An 18 ga, 100 mm RFA needle with a 10 mm active tip was advanced to the location of the medial branch at the junction of the superior articular process and the transverse process at L4,5 and the base of the SAP of the sacrum using intermittent fluoroscopy in the oblique view with caudal tilt. AP and lateral radiographs were taken to confirm proper needle henok cement. No paresthesias were noted. The stylet was removed and the radiofrequency probe was inserted through the cannula. Each level was individually tested. Motor stimulation up to 2V elicited multifidus twitching in the lumbar spine. There was no motor stimulation in the lower extremities. After negative aspiration, 1ml of 2% lidocaine was injected at each of the levels and radiofrequency denervation carried out using 80 degrees Celsius for 90 seconds. The needles were then rotated 90 degrees and a second ablation was performed at 80 degrees Celsius for 90 seconds. After ablation, a mixture of 10 mg dexamethasone with 0.5% bupivacaine 5 mL was injected in equal amounts among the sites (1 mL per site). At the end of the procedure the needles were withdrawn and Band-Aids were applied for a dressing. This procedure is expected to denervate the bilateral L4-5 and L5-S1 facet joints. Post Procedure: Patient was taken to the recovery and monitored. The patient was provided a Pain Log to continue to record the patient's response to the target- specific procedure prior to the patient's follow-up visit with the referring physician. Patient was stable upon discharge. Detailed post procedure instructions were provided. Patient was asked to call in the event of worsening pain, fever, weakness, numbness or bladder or bowel incontinence. Complications: None
--- NOTE | 2024-01-04 13:53 | PC.NURSE ---
Post-Procedure Call: Spoke with patient at [phone]. No questions or concerns. Encouraged to contact the office as needed.
== END 2024-01-03 14:37 | disposition home or self-care (01) ==
PROVIDERS: Family Provider Student in an Organized Health Care Education/Training Program; PCP Internal Medicine; Referring Provider Anesthesiology; Visit Provider Anesthesiology
DX: M47.816 Spondylosis without myelopathy or radiculopathy, lumbar region (principal)
CPT/HCPCS: 64635; 64636; 99152; 99153; J1100; J2250

== ENCOUNTER 2024-03-11 09:58 | Day surgery (SDC) | payer MEDICARE, SELFPAY ==
[2021-10-01 15:48] VITALS: BMI 25.7
--- NOTE | 2024-03-11 | PATH_ITS ---
[facility] Accession Number: [id number] No. of containers..01 Tissue . 01 Material submitted: . esophagus - ESOPHAGUS BIOPSY . 01 Clinical history: . R/O HAGEN'S . 01 Diagnosis: ESOPHAGUS BIOPSY: Proximal gastric-type glandular mucosa with mild chronic and active inflammation. No goblet cell metaplasia, dysplasia, or malignancy identified. [facility] 03/14/2024 1342 Local . 01 Electronically signed: . James Bridges MD, Pathologist NPI- [id number] . 01 Gross description: . Received in formalin with two patient identifiers and esophagus biopsy, are two hardy soft tissue fragments, 0.4 x 0.3 cm in greatest dimension. Submitted entirely in A1. ([id number]) /MRV 03/14/2024 1342 Local . 01 Pathologist provided ICD-10: K20.90 . 01 CPT . 385175 Specimen Comment: A courtesy copy of this report has been sent to [phone] Performed at: [address] [id number] MD James Bridges MD Phone: [phone]
[2024-03-11] MEDS: LACTATED RINGERS 1,000 ML 42 ML IV (10:14)
--- NOTE | 2024-03-11 10:24 | PM.OP.EGD ---
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 Need for follow-up EGD for screening purposes. In addition, her son has been diagnosed with stage IV neuroendocrine tumor originating in gastric polyp. Any large size polyps in her stomach will be removed for evaluation. Procedure & Clinicians Study performed: EGD Indications: See above. Procedure Notes Procedure in detail: After informed consent was obtained the patient was placed in left lateral decubitus position. The video upper scope was placed into the oropharynx and with the patient's help swelled into the esophagus. The esophagus stomach and duodenum were carefully examined. On withdrawal, retroflexed view the GE junction was performed. The scope was removed. The patient tolerated procedure well. Blood loss none Complications none Sedation mac Findings 1. Oropharyngeal and noble esophageal candidiasis, rather severe. 2. No very clear-cut evidence of Lynn's esophagus but there may have been to small incursion Z into the esophageal mucosa above the GE fold. These were less than 1 cm. Biopsies were taken to rule out Lynn's 3. Normal stomach without any evidence of gastric polyps., certainly none greater than a cm 4. Normal duodenal bulb and sweep Will call in Diflucan for her to take for a month. If she has any residual symptoms repeat endoscopy should be considered to rule out residual Purnima. Follow-up EGD pending the results of biopsies. If no evidence of Barretts is present then performing an every 1-2 years would be not unreasonable.
--- NOTE | 2024-03-11 10:26 | PM.HP.1 ---
History of Present Illness History of Present Illness Date Patient Seen: 03/11/24 Chief complaint: EGD Narrative: Screening EGD for 5 follow-up of Lynn's esophagus. Personal history of FAP. 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 PENDING SALE TO [facility] Medical History Spinal stenosis, lumbar region with neurogenic claudication Cluneal neuropathy Right rotator cuff tendonitis Lumbar spondylosis Family history of familial adenomatous polyposis Primary osteoarthritis involving multiple joints Chronic, continuous use of opioids Chronic low back pain Mixed hyperlipidemia Lumbar spinal stenosis Restless leg syndrome Carpal tunnel syndrome (~2002) Rubella Mumps Measles Chicken pox [place] spotted fever (~2019) Fibroids (~1979) GERD (gastroesophageal reflux disease) (~2011) Colon polyps (~1998) Lynn's esophagus (~2011) Familial adenomatous polyposis (~1998) Surgical History S/P ileostomy Anesthesia History of hysterectomy (~1991) History of colectomy (~2015) History of endoscopy (~2017) Status post small bowel resection (~2019) Family History Father Colon cancer FAP (familial adenomatous polyposis) Mother History of heart disease Mental health problem Brother History of heart disease Grandmother History of heart disease Grandfather Drowned Grandmother Cancer Family/Other FAP (familial adenomatous polyposis) Social History household members: friend(s) Smoking Status: Former smoker alcohol intake: current Meds Home Medications and Allergies Home Medications Medication Instructions Recorded Confirmed Type losartan 100 mg tablet 100 mg PO DAILY #90 tabs 08/21/23 02/26/24 Rx rosuvastatin 10 mg tablet 10 mg PO DAILY #90 tabs 08/21/23 02/26/24 Rx gabapentin 600 mg tablet 600 mg PO TID #270 tabs 02/26/24 02/26/24 Rx oxycodone-acetaminophen 5 mg-325 1 tab PO 5XD #150 tabs 02/26/24 02/26/24 Rx mg tablet oxycodone-acetaminophen 5 mg-325 1 tab PO 5XD #150 tabs 02/26/24 02/26/24 Rx mg tablet oxycodone-acetaminophen 5 mg-325 1 tab PO 5XD PRN pain #150 tabs 02/26/24 02/26/24 Rx mg tablet (Percocet) Allergies Allergy/AdvReac Type Severity Reaction Status Date / Time cephalexin [From Keflex] Allergy Mild Rash Verified 03/11/24 10:24 ketamine AdvReac Intermediate Hallucinati Verified 03/11/24 10:24 ng Exam Narrative Exam Narrative: Oropharynx free of lesions Chest clear to auscultation percussion Cardiac exam reveals no S3 or murmur Assessment & Plan Assessment & Plan narrative: History of Lynn's esophagus and gastric polyps on the background of history of FAP. Need for follow-up screening EGD. Risks, benefits, alternatives have been explained.
[2024-03-11 10:48] VITALS: BP 153/87; PULSE 75; RESP 15; TEMP 36.3; O2SAT 98
[2024-03-11 11:29] VITALS: BP 120/76; PULSE 71; RESP 14; TEMP 36.7; O2SAT 98
[2024-03-11 11:34] VITALS: BP 147/89; PULSE 69; RESP 15; O2SAT 96
[2024-03-11 11:38] VITALS: BP 159/106; PULSE 74; RESP 17; O2SAT 97
[2024-03-11 11:48] VITALS: BP 149/85; PULSE 66; RESP 14; TEMP 36.7; O2SAT 98
== END 2024-03-11 12:30 | disposition home or self-care (01) ==
PROVIDERS: Family Provider Student in an Organized Health Care Education/Training Program; PCP Internal Medicine; Referring Provider Internal Medicine Gastroenterology; Visit Provider Internal Medicine Gastroenterology
PROC: 0DJ08ZZ Inspection of Upper Intestinal Tract, Via Natural or Artificial Opening Endoscopic (ICD-10-PCS; CPT 43235; principal; 2024-03-11 11:00)
DX: Z87.19 Personal history of other diseases of the digestive system (principal); Z09 Encounter for follow-up examination after completed treatment for conditions other than malignant neoplasm; Z80.0 Family history of malignant neoplasm of digestive organs; K20.90 Esophagitis, unspecified without bleeding
CPT/HCPCS: 43239; J2704

== ENCOUNTER → 2024-08-14 14:02 | Outpatient (CLI) | payer MEDICARE, SELFPAY ==
[2024-08-14 13:27] VITALS: BMI 25.7
[2024-08-16 13:11] LABS: C difficie Toxins A and B, EIA Negative (Negative)
== END ==
PROVIDERS: Family Provider Student in an Organized Health Care Education/Training Program; PCP Internal Medicine; Referring Provider Internal Medicine; Visit Provider Internal Medicine
DX: R19.7 Diarrhea, unspecified (principal)
CPT/HCPCS: 87324

== ENCOUNTER → 2024-11-13 15:49 | Outpatient (CLI) | payer MEDICARE, SELFPAY ==
[2024-08-14 13:27] VITALS: BMI 25.7
[2024-11-13 16:48] LABS: Aspartate Aminotransferase 35 IU/L (14-36); BUN Creatinine Ratio 31.8 (6-22); Blood Urea Nitrogen 34 mg/dL (7-17); Calcium 9.2 mg/dL (8.4-10.2); Carbon Dioxide 25 mmol/L (22-32); Chloride 103 mmol/L (98-107); Cholesterol 159 mg/dL (140-199); Estimated Glomerular Filt Rate 54 mL/min (>60); Glucose 99 mg/dL (80-110); HDL Cholesterol 98 mg/dL (40-60); HEMOLYSIS < 15 (0-50); LDL Cholesterol Calculated 23 mg/dL (<100); Potassium 4.2 mmol/L (3.4-5.1); Sodium 137 mmol/L (137-145); Triglycerides 192 mg/dL (35-150)
== END ==
LOC: LAB 15:50
PROVIDERS: Family Provider Student in an Organized Health Care Education/Training Program; PCP Internal Medicine; Referring Provider Internal Medicine; Visit Provider Internal Medicine
DX: E78.2 Mixed hyperlipidemia (principal); I10 Essential (primary) hypertension
CPT/HCPCS: 36415; 80048; 80061; 84450

== ENCOUNTER → 2025-03-12 15:42 | Outpatient (CLI) | payer MEDICARE, MEDICAID, SELFPAY ==
[2024-08-14 13:27] VITALS: BMI 25.7
== END ==
PROVIDERS: PCP Internal Medicine; Visit Provider Nurse Practitioner Family
DX: J02.9 Acute pharyngitis, unspecified (principal); K13.29 Other disturbances of oral epithelium, including tongue
CPT/HCPCS: 87070; 87102

== ENCOUNTER → 2025-09-01 11:16 | Outpatient (CLI) | payer MEDICARE, MEDICAID, SELFPAY ==
[2024-08-14 13:27] VITALS: BMI 25.7
--- NOTE | 2025-09-01 11:22 | DI.MG.S_ITS ---
MM screening mammo BI: 09/01/2025. BI-RADS: 1 CLINICAL: 75-year old female for bilateral screening mammogram. Tyrer-Cuzick lifetime risk of 2.4%. No personal or first-degree family history of breast cancer. PRIOR EXAMS 09/20/2023. MAMMOGRAPHY TECHNIQUE: 2D and 3D (tomosynthesis) digital mammographic views obtained, with additional images as needed for full coverage. Current study was also evaluated with a Computer Aided Detection (CAD) system. DENSITY B. There are scattered areas of fibroglandular density. MAMMOGRAPHY FINDINGS Bilateral: No suspicious mass, asymmetry, microcalcification, or other abnormality seen. IMPRESSION: * No evidence of malignancy. RECOMMENDATIONS Bilateral * Annual screening mammography. OVERALL ASSESSMENT CATEGORY BI-RADS-1: Negative. The [employer] recommends annual screening mammography beginning at age 40 for women with average risk of breast cancer. ELECTRONICALLY SIGNED: Antoine Chen M.D. on 09/01/2025 at 10:04:51 PM PT Interpreting Station ID: [id number]
== END ==
LOC: MAMMO 11:20
PROVIDERS: PCP Internal Medicine; Referring Provider Internal Medicine; Visit Provider Internal Medicine
DX: Z12.31 Encounter for screening mammogram for malignant neoplasm of breast (principal)
CPT/HCPCS: 77063; 77067